=== PATIENT | female | born 1975 | race Caucasian/White ===

== ENCOUNTER → 2017-11-26 | Outpatient (CLI) | payer MEDICAID, SELFPAY | PROVIDERS: Visit Provider Emergency Medicine | DX: Z12.31 Encounter for screening mammogram for malignant neoplasm of breast (principal) | CPT/HCPCS: 77067; G0202 ==

== ENCOUNTER → 2018-03-17 10:12 | Outpatient (REF) | payer MEDICAID, SELFPAY ==
[2018-03-17 15:21] LABS: Alanine Aminotransferase 21 U/L (12-78); Albumin Level 3.5 gm/dL (3.4-5.0); Albumin/Globulin Ratio 0.9 (1.1-1.8); Alkaline Phosphatase 118 U/L (46-116); Anion Gap 13.4 mEq/L (5-15); Aspartate Amino Transferase 18 U/L (15-37); Bilirubin,Total 0.5 mg/dL (0.2-1.0); Blood Urea Nitrogen 7 mg/dL (7-18); Calcium 9.3 mg/dL (8.5-10.1); Carbon Dioxide 26 mmol/L (21.0-32.0); Chloride 103 mmol/L (98-107); Creatinine,Serum 0.65 mg/dL (0.55-1.02); Estimated Glomerular Filt Rate 99 ml/min (>60); Free T4 (Free Thyroxine) 0.93 ng/dl (0.76-1.46); GFR (African American) 120 ML/MIN (>60); Globulin 3.7 gm/dl (1.3-3.2); Glucose 91 mg/dL (74-106); Potassium 4.4 mmoL/L (3.5-5.1); Sodium 138 mmol/L (136-145); Thyroid Stimulating Hormone 1.64 uIU/ml (0.358-3.740); Total Protein,Serum 7.2 gm/dL (6.4-8.2)
== END ==
LOC: LAB 10:12
PROVIDERS: Visit Provider Emergency Medicine
DX: I10 Essential (primary) hypertension (principal)
CPT/HCPCS: 80053; 84439; 84443; 87522

== ENCOUNTER → 2018-03-19 13:07 | Outpatient (REF) | payer MEDICAID, SELFPAY ==
[2018-03-19 16:32] LABS: Amphetamine/Metha Screen,Urine Negative ng/mL (<1000); Barbiturates Screen,Urine Negative ng/mL (<200); Benzodiazepines Screen,Urine Negative ng/mL (200); Cannabinoid Screen,Urine Negative ng/mL (<50); Cocaine Screen,Urine Negative ng/g (<300); Methadone Screen,Urine Negative ng/mL (<300); Opiate Screen,Urine Negative ng/mL (<300); Phencyclidine Screen,Urine Negative ng/mL (<25)
== END ==
LOC: LAB 13:07
PROVIDERS: Visit Provider Emergency Medicine
DX: Z79.899 Other long term (current) drug therapy (principal)
CPT/HCPCS: 80305

== ENCOUNTER → 2018-10-21 11:47 | Outpatient (CLI) | payer MEDICAID, SELFPAY ==
--- NOTE | 2018-10-21 11:51 | XR_ITS ---
XR chest 2V HISTORY: ITS.REASON: cough ORDERING PHYSICIAN: Carly Brown PATIENT AGE: 43 years COMPARISON: None FINDINGS: The cardiomediastinal silhouette and pulmonary vascularity are within normal limits. There is some haziness in the perihilar region on both sides with some mild bronchial thickening which may be related to bronchitis.. No lobar consolidation or collapse No acute bony abnormalities. IMPRESSION: Bronchitis
== END ==
PROVIDERS: PCP Emergency Medicine; Visit Provider Nurse Practitioner Family
DX: R05 Cough (principal); F17.200 Nicotine dependence, unspecified, uncomplicated; R06.02 Shortness of breath
CPT/HCPCS: 71046

== ENCOUNTER → 2020-04-19 07:45 | Outpatient (CLI) | payer OTHER, SELFPAY ==
--- NOTE | 2020-04-19 07:45 | MM_ITS ---
PROCEDURE: MM DIG SCREENING MAMM BI W/CAD Digital Breast Tomosynthesis Included CLINICAL INDICATION: screening There is a history of breast cancer patient's maternal grandmother. There has been a previous biopsy on each breast for benign disease. 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 R2 CAD reviewed. FINDINGS: There are moderate diffuse heterogenic fibroglandular densities seen throughout both breasts. The findings are bilateral and symmetrical. Tomograms are most helpful this type of breast parenchyma. There is no suspicious lesion and no suspicious microcalcifications. IMPRESSION: Moderate diffuse breast density with no suspicious lesions seen BI-RAD Category: 1 Negative FOLLOW-UP: 1YR 1 Year Follow-up (A letter has been sent to the patient regarding results of the study.) Dictated by: Dr. Neal Velazquez MD 04/19/2020 14:[address] Neal Velazquez MD in [place] 04/19/2020 14:11
== END ==
PROVIDERS: PCP Emergency Medicine; Visit Provider Emergency Medicine
DX: Z12.31 Encounter for screening mammogram for malignant neoplasm of breast (principal)
CPT/HCPCS: 77063; 77067

== ENCOUNTER → 2020-10-26 13:58 | Outpatient (CLI) | payer OTHER, SELFPAY ==
--- NOTE | 2020-10-26 14:16 | US_ITS ---
PROCEDURE: US GALLBLADDER CLINICAL INDICATION: ruq pain Right upper quadrant pain COMPARISON: No exams were available for comparison FINDINGS: Pancreas: Unremarkable/Not well seen Liver: Unremarkable. There is appropriate direction of blood flow within a non dilated portal vein. Right kidney: Unremarkable appearing. No hydronephrosis. Gallbladder: No stones are evident. There is no gallbladder wall thickening. Common duct is normal in diameter. IMPRESSION: Negative gallbladder ultrasound. No stones evident. Dictated by: Brandyn Kelly MD 10/26/2020 15:36 Brandyn Kelly MD in [place] 10/26/2020 15:36
[2020-10-26 15:06] LABS: Basophils # 0.1 K/mm3 (0-0.2); Basophils % 0.6 % (0.1-2.0); Eosinophils # 0.2 K/mm3 (0.0-0.4); Eosinophils % 2.2 % (0.1-12.0); Hematocrit 42.5 % (37.0-47.0); Hemoglobin 14.9 g/dL (12.2-16.2); Lymphocytes # 5.2 K/mm3 (0.7-4.5); Lymphocytes % 50.2 % (10-50); Mean Corpuscular HGB Conc 35.1 g/dL (31.8-35.4); Mean Corpuscular Hemoglobin 30.8 pg (27.0-31.2); Mean Corpuscular Volume 87.7 fl (81-99); Monocytes # 0.6 K/mm3 (0.1-1.0); Monocytes % 5.4 % (1.7-9.3); Neutrophils # 4.3 K/mm3 (1.8-7.8); Neutrophils % 41.7 % (37.0-80.0); Platelet Count 287 K/mm3 (142-424); Red Blood Count 4.84 M/mm3 (4.20-5.40); Red Cell Distribution Width 13.8 % (11.5-17.5); White Blood Count 10.3 K/mm3 (4.8-10.8)
[2020-10-26 15:09] LABS: MANUAL DIFFERENTIAL MANUAL DIFFERENTIAL (MANUAL DIFF)
[2020-10-26 16:26] LABS: Eosinophils % 2 % (0-3); Lymphocytes % 55 % (10-50); Monocytes % 1 % (2-9); Neutrophils % 42 % (42-76); Platelet Estimate Normal; RBC Morphology Normal; Total Cells Counted 100
[2020-10-26 18:00] LABS: Alanine Aminotransferase 19 U/L (12-78); Albumin Level 4.5 g/dl (3.5-5.0); Albumin/Globulin Ratio 1.5 (1.1-1.8); Alkaline Phosphatase 79 U/L (38-126); Amylase 41 U/L (30-110); Anion Gap 10.6 mEq/L (5-15); Aspartate Amino Transferase 29 U/L (14-36); Bilirubin,Total 0.6 mg/dl (0.2-1.3); Blood Urea Nitrogen 11 mg/dl (7-17); Calcium 9.8 mg/dl (8.4-10.2); Carbon Dioxide 29 mmol/L (22.0-30.0); Chloride 102 mmol/L (98-107); Estimated Glomerular Filt Rate 77 ml/min (>60); GFR (African American) 93 ML/MIN (>60); Glucose 88 mg/dl (74-100); Lipase 149 U/L (23-300); Potassium 3.6 mmoL/L (3.5-5.1); Sodium 138 mmol/L (136-145); Total Protein,Serum 7.5 g/dl (6.3-8.2)
[2020-10-26 18:14] LABS: 25-OH Vitamin D, Total 45.1 ng/mL (30-100)
== END ==
PROVIDERS: Visit Provider Emergency Medicine
DX: R10.9 Unspecified abdominal pain (principal); E03.9 Hypothyroidism, unspecified
CPT/HCPCS: 36415; 76705; 80053; 82150; 82306; 83690; 85007; 85025

== ENCOUNTER → 2020-11-04 09:02 | Outpatient (CLI) | payer OTHER, SELFPAY ==
--- NOTE | 2020-11-04 09:02 | NM_ITS ---
PROCEDURE: NM HEPATOBILIARY W PHARM CLINICAL INDICATION: abd pain Right upper quadrant pain COMPARISON: US US GALLBLADDER from 10/26/2020 TECHNIQUE: DOSE: 8.76 mCi technetium Choletec 1.5 mcg of CCK FINDINGS: Homogeneous activity is present within the hepatic parenchyma. Activity is present in the gallbladder by 10 minutes. Activity is present in the small bowel by 5 minutes. The gallbladder ejection fraction is calculated to be 89 percent. Patient complains of slight pain with CCK infusion IMPRESSION: No evidence of common or cystic duct obstruction with normal gallbladder ejection fraction Dictated by: Brandyn Kelly MD 11/04/2020 17:14 Brandyn Kelly MD in [place] 11/04/2020 17:14
== END ==
PROVIDERS: PCP Emergency Medicine; Visit Provider Emergency Medicine
DX: R10.9 Unspecified abdominal pain (principal)
CPT/HCPCS: 78227; A9537; J2805

== ENCOUNTER → 2020-12-22 14:30 | Outpatient (CLI) | payer OTHER, SELFPAY ==
[2020-12-23 11:15] LABS: Covid-19 Nasal PCR Sendout P&C Negative
== END ==
PROVIDERS: PCP Emergency Medicine; Visit Provider Emergency Medicine
DX: Z20.822 Contact with and (suspected) exposure to COVID-19 (principal)
CPT/HCPCS: U0004

== ENCOUNTER → 2021-01-13 15:34 | Outpatient (CLI) | payer OTHER, SELFPAY ==
[2021-01-13 17:33] LABS: Coronavirus 19 IgG Antibody Negative (Negative); Coronavirus 19 IgM Antibody Negative (Negative)
== END ==
PROVIDERS: Visit Provider Internal Medicine Gastroenterology
DX: Z01.812 Encounter for preprocedural laboratory examination (principal); Z20.822 Contact with and (suspected) exposure to COVID-19; Z12.11 Encounter for screening for malignant neoplasm of colon
CPT/HCPCS: 36415; 86328

== ENCOUNTER → 2021-05-08 13:30 | Outpatient (CLI) | payer OTHER, SELFPAY ==
[2021-05-08 18:44] LABS: Barbiturates Screen,Urine Negative ng/ml (<200); Benzodiazepines Screen,Urine Negative ng/ml (<200)
[2021-05-08 18:45] LABS: Amphetamine/Metha Screen,Urine Negative ng/ml (<1000)
[2021-05-08 18:46] LABS: Cannabinoid Screen,Urine Positive ng/ml (<50); Methadone Screen,Urine Negative ng/ml (<300)
[2021-05-08 18:47] LABS: Cocaine Screen,Urine Negative ng/ml (<300)
[2021-05-08 18:50] LABS: Opiate Screen,Urine Negative ng/ml (<300)
[2021-05-08 18:51] LABS: Phencyclidine Screen,Urine Negative ng/ml (<25)
== END ==
PROVIDERS: Visit Provider Emergency Medicine
DX: G62.9 Polyneuropathy, unspecified (principal)
CPT/HCPCS: 80305

== ENCOUNTER 2021-07-19 08:04 | Emergency (ER) | payer OTHER, SELFPAY ==
[2021-07-19 08:05] VITALS: BP 165/81; PULSE 73; RESP 17; TEMP 36.8; O2SAT 99; BMI 27.4
[2021-07-19 08:13] VITALS: BMI 26.5
--- NOTE | 2021-07-19 08:14 | XR_ITS ---
PROCEDURE: XR CHEST PORTABLE CLINICAL HISTORY: fever COMPARISON: CR CXR2V XR chest 2V from 10/21/2018 FINDINGS: The cardiomediastinal silhouette and pulmonary vascularity are within normal limits. The lungs are clear without infiltrates, suspicious nodules, or pleural effusions. Small triangular-shaped opacity is present in the right mid upper lung zone and may be due to summation artifact from ribs and scapula. Follow-up may confirm. No acute bony findings. IMPRESSION: No acute findings. Dictated by: Brandyn Kelly MD 07/19/2021 09:26 Brandyn Kelly MD in [place] 07/19/2021 09:26
--- NOTE | 2021-07-19 08:29 | INFXCTL.NOTE ---
rad notified of xray order
[2021-07-19 08:30] VITALS: BP 153/82; PULSE 68; O2SAT 95
[2021-07-19 08:43] LABS: Basophils # 0.1 K/mm3 (0-0.2); Basophils % 0.6 % (0.1-2.0); Eosinophils # 0.3 K/mm3 (0.0-0.4); Eosinophils % 2.7 % (0.1-12.0); Hematocrit 40.9 % (37.0-47.0); Hemoglobin 14.1 g/dL (12.2-16.2); Lymphocytes # 2.8 K/mm3 (0.7-4.5); Lymphocytes % 26.2 % (10-50); Mean Corpuscular HGB Conc 34.5 g/dL (31.8-35.4); Mean Corpuscular Volume 87.1 fl (81-99); Mean Platelet Volume 7.7 fl (7.4-10.4); Monocytes # 0.7 K/mm3 (0.1-1.0); Monocytes % 6.5 % (1.7-9.3); Neutrophils # 6.7 K/mm3 (1.8-7.8); Neutrophils % 63.9 % (37.0-80.0); Platelet Count 273 K/mm3 (142-424); Red Blood Count 4.69 M/mm3 (4.20-5.40); Red Cell Distribution Width 13.3 % (11.5-17.5); White Blood Count 10.5 K/mm3 (4.8-10.8)
[2021-07-19 08:47] LABS: Chloride 106 mmol/L (98-107)
[2021-07-19 08:48] LABS: Potassium 3.5 mmoL/L (3.5-5.1); Sodium 139 mmol/L (136-145)
[2021-07-19 08:50] LABS: Alanine Aminotransferase 16 U/L (12-78); Alkaline Phosphatase 93 U/L (38-126); Aspartate Amino Transferase 26 U/L (14-36); Blood Urea Nitrogen 10 mg/dl (7-17); Creatinine Clearance Estimated 93 mL/min (50-200); Estimated Glomerular Filt Rate 77 ml/min (>60); GFR (African American) 93 ML/MIN (>60)
[2021-07-19 08:51] LABS: Albumin Level 4.5 g/dl (3.5-5.0); Albumin/Globulin Ratio 1.5 (1.1-1.8); Anion Gap 8.5 mEq/L (5-15); Calcium 9.6 mg/dl (8.4-10.2); Carbon Dioxide 28 mmol/L (22.0-30.0); Glucose 122 mg/dl (74-100); Lipase 60 U/L (23-300); Total Protein,Serum 7.5 g/dl (6.3-8.2)
[2021-07-19 09:00] VITALS: BP 145/71; PULSE 65; O2SAT 96
[2021-07-19 09:10] LABS: Coronavirus 19, PCR Not Detected (NotDetected); Influenza A, PCR Not Detected (NotDetected); Influenza B, PCR Not Detected (NotDetected)
--- NOTE | 2021-07-19 09:19 | HMH.EDGENADL ---
ED Disposition Clinical Impression: Diarrhea Disposition: Home, Self-Care Condition on Discharge: Good Instructions: DI for Diarrhea and Traveler's Diarrhea -- Adult, DI for Diarrhea and Traveler's Diarrhea -- Child, DI for Nausea -- Adult, DI for Nausea -- Child Prescriptions: Loperamide HCl [Imodium 2 mg capsule] 2 mg PO Q2HP PRN 2 Days #30 cap PRN Reason: Diarrhea Transmission Status: Pending to [facility] Ondansetron [Zofran 4mg ODT] 4 mg PO TIDP PRN #15 tab PRN Reason: Nausea Transmission Status: Pending to [facility] Referrals: See Henriquez MD [Primary Care Provider] - - Critical Care Critical Care Time: No Attestation: On 07/19/21, the high probability of a clinically significant, sudden or life threatening deterioration of the following system(s) required my full and direct attention, intervention and personal management. The time I documented below is in addition to time spent performing reported procedures but includes the following listed in this critical care notation. Medical Decision Making - Medical Records Medical records reviewed: Yes: I reviewed the patient's medical records. - Bassam Inquiry Pt receiving controlled substance: No Vital Signs: 07/19/21 08:05 Temperature 98.3 F Temperature Source Oral Pulse Rate [Right] 73 Respiratory Rate 17 Blood Pressure [Right Arm] 165/81 H Blood Pressure Mean [Right Arm] 109 02 Sat by Pulse Oximetry 99 Oxygen Delivery Method Room Air - Lab Data Lab Results 07/19/21 08:25: WBC 10.5, RBC 4.69, Hgb 14.1, Hct 40.9, MCV 87.1, MCH 30.0, MCHC 34.5, RDW 13.3, Plt Count 273, MPV 7.7, Neut % (Auto) 63.9, Lymph % (Auto) 26.2, [place] % (Auto) 6.5, Eos % (Auto) 2.7, Baso % (Auto) 0.6, Neut # (Auto) 6.7, Lymph # (Auto) 2.8, [place] # (Auto) 0.7, Eos # (Auto) 0.3, Baso # (Auto) 0.1 07/19/21 08:25: Sodium 139, Potassium 3.5, Chloride 106, Carbon Dioxide 28, Anion Gap 8.5, BUN 10, Creatinine 0.80, Estimated Creat Clear 93, Estimated GFR 77, Est GFR ( Amer) 93, Glucose 122 H, Calcium 9.6, Total Bilirubin 1.0, AST 26, ALT 16, Alkaline Phosphatase 93, Total Protein 7.5, Albumin 4.5, Globulin 3.0, Albumin/Globulin Ratio 1.5 07/19/21 08:25: SARS-CoV-2 (PCR) Not detected, Influenza A Untype (PCR) Not detected, Influenza Type B (PCR) Not detected 07/19/21 08:25: Lipase 60 Result diagrams: 07/19/21 08:25 07/19/21 08:25 Orders (Tests/Meds): ED MEDICATIONS Discontinued Medications Generic Name Dose Route Start Last Admin Trade Name Freq PRN Reason Stop Dose Admin Sodium Chloride 1,000 mls @ 999 mls/hr 07/19/21 08:30 07/19/21 08:35 Sod Chlor 0.9% 1000ml Bag IV 07/19/21 09:30 999 mls/hr .Q1H1M JENNIFER Administration Ondansetron HCl 4 mg 07/19/21 08:27 07/19/21 09:38 Ondansetron 4mg Odt SL 07/19/21 08:28 Not Given ONCE ONE Ondansetron HCl 4 mg 07/19/21 08:35 07/19/21 08:35 Ondansetron 4mg/2ml Vial IV 07/19/21 08:36 4 mg ONCE ONE Administration Medical Decision Narrative: 46-year-old female presents with nausea vomiting and diarrhea as above. She is in no acute distress nontoxic-appearing comfortable in the room. She did not have acute abdomen on my exam. She was concerned for COVID-19 however her rapid test was negative. Counseled to obtain PCR as well and isolate per quarantine guidelines. She was symptomatically feeling much better on reexamination requesting to be discharged. Plan to give antiemetic and antidiarrheal medicine and discharged home with return precautions General Adult HPI - General Chief complaint: Nausea/Vomiting/Diarrhea Stated complaint: vomiting, fever Time Seen by Provider: 07/19/21 08:10 Mode of Arrival: Family Vehicle Limitations: No Limitations Description of Symptoms (Recalled from ER Triage Doc. by RN): Patient c/o nausea, vomitting, diarhea and a headache for the last two days. Patient reports she has had multiple COVID exposures. Patient reports being vacc
[2021-07-19 09:30] VITALS: BP 157/75; PULSE 56; O2SAT 96
[2021-07-19 09:58] VITALS: BP 148/88; PULSE 60; O2SAT 98
[2021-07-19 10:02] VITALS: BP 148/88; PULSE 63; RESP 18; TEMP 37.1; O2SAT 98
== END 2021-07-19 10:03 | disposition home or self-care (01) ==
PROVIDERS: Emergency Provider Emergency Medicine; PCP Emergency Medicine
DX: Z20.822 Contact with and (suspected) exposure to COVID-19 (principal); R11.2 Nausea with vomiting, unspecified; R19.7 Diarrhea, unspecified; F41.8 Other specified anxiety disorders; I10 Essential (primary) hypertension; E03.9 Hypothyroidism, unspecified; F17.210 Nicotine dependence, cigarettes, uncomplicated
CPT/HCPCS: 71045; 80053; 83690; 85025; 96365; 96375; 99283; J2405; U0003

== ENCOUNTER 2021-09-01 10:52 | Emergency (ER) | payer OTHER, SELFPAY ==
[2021-09-01] VITALS (9 sets, daily range): BP systolic 144–178; BP diastolic 85–96; PULSE 72–101; RESP 16–18; TEMP 37.2; O2SAT 96–99; BMI 26.5
--- NOTE | 2021-09-01 11:17 | XR_ITS ---
PROCEDURE: XR CHEST PORTABLE CLINICAL HISTORY: fever, SOA, cough COMPARISON: CR CXR2V XR chest 2V from 10/21/2018 CR XR CHEST PORTABLE from 07/19/2021 FINDINGS: The cardiomediastinal silhouette and pulmonary vascularity are within normal limits. Calcified granulomas right upper lobe No acute bony abnormalities. IMPRESSION: No change with no acute finding Dictated by: Brandyn Kelly MD 09/01/2021 12:25 Brandyn Kelly MD in [place] 09/01/2021 12:25
[2021-09-01 11:21] LABS: Coronavirus 19, PCR Not Detected (NotDetected); Influenza A, PCR Not Detected (NotDetected); Influenza B, PCR Not Detected (NotDetected)
[2021-09-01 11:21] LABS: Microscopic, Urine URINE MICROSCOPIC (MICROSCOPIC)
[2021-09-01 11:23] LABS: Basophils # 0.1 K/mm3 (0-0.2); Basophils % 0.9 % (0.1-2.0); Eosinophils # 0.1 K/mm3 (0.0-0.4); Eosinophils % 1.2 % (0.1-12.0); Hematocrit 46.1 % (37.0-47.0); Hemoglobin 15.7 g/dL (12.2-16.2); Lymphocytes % 34.7 % (10-50); Mean Corpuscular Hemoglobin 30.8 pg (27.0-31.2); Mean Corpuscular Volume 90.6 fl (81-99); Mean Platelet Volume 8.3 fl (7.4-10.4); Monocytes # 0.6 K/mm3 (0.1-1.0); Monocytes % 6.7 % (1.7-9.3); Neutrophils # 4.9 K/mm3 (1.8-7.8); Neutrophils % 56.4 % (37.0-80.0); Platelet Count 316 K/mm3 (142-424); Red Blood Count 5.09 M/mm3 (4.20-5.40); Red Cell Distribution Width 13.4 % (11.5-17.5); White Blood Count 8.7 K/mm3 (4.8-10.8)
[2021-09-01 11:25] LABS: Appearance,Urine CLEAR (Clear); Blood, Urine 1+ (Negative); Color,Urine YELLOW (Yellow); Glucose,Urine (UA) Negative (Negative); Ketones,Urine TRACE (Negative); Leukocyte Esterase,Urine Negative (Negative); Nitrate,Urine Negative (Negative); Protein,Urine TRACE (Negative); Urobilinogen,Urine 0.2 EU/dl (0.2)
[2021-09-01 11:27] LABS: Bilirubin,Urine 1+ (Negative)
[2021-09-01 11:27] LABS: Chloride 106 mmol/L (98-107); Potassium 4.1 mmoL/L (3.5-5.1); Sodium 138 mmol/L (136-145)
[2021-09-01 11:29] LABS: Alanine Aminotransferase 19 U/L (12-78); Aspartate Amino Transferase 36 U/L (14-36); Blood Urea Nitrogen 9 mg/dl (7-17); Creatinine Clearance Estimated 107 mL/min (50-200); Estimated Glomerular Filt Rate 90 ml/min (>60); GFR (African American) 109 ML/MIN (>60)
[2021-09-01 11:30] LABS: Albumin Level 4.3 g/dl (3.5-5.0); Albumin/Globulin Ratio 1.2 (1.1-1.8); Alkaline Phosphatase 102 U/L (38-126); Anion Gap 12.1 mEq/L (5-15); Bilirubin,Total 0.9 mg/dl (0.2-1.3); Calcium 9.5 mg/dl (8.4-10.2); Carbon Dioxide 24 mmol/L (22.0-30.0); Globulin 3.5 g/dL (1.3-3.2); Glucose 112 mg/dl (74-100); Total Protein,Serum 7.8 g/dl (6.3-8.2)
--- NOTE | 2021-09-01 11:45 | HMH.EDNVD ---
ED Disposition Clinical Impression: Bronchitis Disposition: Home, Self-Care Condition on Discharge: Good Instructions: DI for Cough -- Adult Additional Instructions: fluids and use meds and see pcp for follow up Prescriptions: levoFLOXacin [Levaquin 500mg tab] 500 mg PO DAILY #7 tab Transmission Status: Pending to [facility] predniSONE [Prednisone 20mg Tab] 20 mg PO BID #10 tab Transmission Status: Pending to [facility] Benzonatate [Tessalon Perle 100mg Cap] 100 mg PO TID #30 cap Transmission Status: Pending to [facility] Referrals: See Henriquez MD [Primary Care Provider] - - Critical Care Critical Care Time: No Attestation: On 09/01/21, the high probability of a clinically significant, sudden or life threatening deterioration of the following system(s) required my full and direct attention, intervention and personal management. The time I documented below is in addition to time spent performing reported procedures but includes the following listed in this critical care notation. Medical Decision Making - Medical Records Medical records reviewed: Yes: I reviewed the patient's medical records. - Bassam Inquiry Pt receiving controlled substance: No Vital Signs: 09/01/21 10:53 09/01/21 11:06 09/01/21 11:30 Temperature 98.9 F Temperature Source Oral Pulse Rate 101 H 88 Pulse Rate [Right Radial] 88 Respiratory Rate 18 16 18 Blood Pressure 178/94 H 158/96 H Blood Pressure [Right Arm] 178/94 H Blood Pressure Mean 116 Blood Pressure Mean [Right Arm] 122 Blood Pressure Source [Right Arm] Automatic Cuff Blood Pressure Position [Right Arm] Supine 02 Sat by Pulse Oximetry 99 99 98 Oxygen Delivery Method Room Air Room Air 09/01/21 12:00 09/01/21 12:30 Temperature Temperature Source Pulse Rate 77 72 Pulse Rate [Right Radial] Respiratory Rate 16 16 Blood Pressure 144/91 H 157/85 H Blood Pressure [Right Arm] Blood Pressure Mean 115 Blood Pressure Mean [Right Arm] Blood Pressure Source [Right Arm] Blood Pressure Position [Right Arm] 02 Sat by Pulse Oximetry 96 96 Oxygen Delivery Method - Lab Data Lab Results 09/01/21 11:05: Urine Color Yellow, Urine Appearance Clear, Urine pH 7.0, Ur Specific [place] 1.020, Urine Protein Trace, Urine Glucose (UA) Negative, Urine Ketones Trace, Urine Blood 1+, Urine Nitrate Negative, Urine Bilirubin 1+ A, Urine Urobilinogen 0.2, Ur Leukocyte Esterase Negative, Urine RBC 3-5, Urine WBC 3-5, Ur Squamous Epith Cells 5-10, Urine Bacteria None 09/01/21 11:15: WBC 8.7, RBC 5.09, Hgb 15.7, Hct 46.1, MCV 90.6, MCH 30.8, MCHC 34.0, RDW 13.4, Plt Count 316, MPV 8.3, Neut % (Auto) 56.4, Lymph % (Auto) 34.7, [place] % (Auto) 6.7, Eos % (Auto) 1.2, Baso % (Auto) 0.9, Neut # (Auto) 4.9, Lymph # (Auto) 3.0, [place] # (Auto) 0.6, Eos # (Auto) 0.1, Baso # (Auto) 0.1 09/01/21 11:15: Sodium 138, Potassium 4.1, Chloride 106, Carbon Dioxide 24, Anion Gap 12.1, BUN 9, Creatinine 0.70, Estimated Creat Clear 107, Estimated GFR 90, Est GFR ( Amer) 109, Glucose 112 H, Calcium 9.5, Total Bilirubin 0.9, AST 36, ALT 19, Alkaline Phosphatase 102, Total Protein 7.8, Albumin 4.3, Globulin 3.5 H, Albumin/Globulin Ratio 1.2 09/01/21 11:15: SARS-CoV-2 (PCR) Not detected, Influenza A Untype (PCR) Not detected, Influenza Type B (PCR) Not detected Result diagrams: 09/01/21 11:15 09/01/21 11:15 Orders (Tests/Meds): ED MEDICATIONS Generic Name Dose Route Start Last Admin Trade Name Freq PRN Reason Stop Dose Admin Sodium Chloride 1,000 mls @ 999 mls/hr 09/01/21 13:43 09/01/21 13:44 Sod Chlor 0.9% 1000ml Bag IV 09/01/21 14:43 999 mls/hr .Q1H1M ONE Administration Discontinued Medications Generic Name Dose Route Start Last Admin Trade Name Freq PRN Reason Stop Dose Admin Sodium Chloride 1,000 mls @ 999 mls/hr 09/01/21 11:30 09/01/21 11:25 Sod Chlor 0.9% 1000ml Bag IV 09/01/21 12:30 999 mls/hr .Q1H
== END 2021-09-01 14:26 | disposition home or self-care (01) ==
PROVIDERS: Emergency Provider Emergency Medicine; PCP Emergency Medicine
DX: J40 Bronchitis, not specified as acute or chronic (principal)
CPT/HCPCS: 71045; 80053; 81001; 85025; 96365; 96366; 96375; 99283; C9803; J2405; U0003; U0005

== ENCOUNTER → 2021-10-31 15:12 | Outpatient (CLI) | payer OTHER, SELFPAY ==
--- NOTE | 2021-10-31 15:13 | XR_ITS ---
PROCEDURE: XR SHOULDER RT MIN 2V CLINICAL INDICATION: right shoulder pain COMPARISON: No exams were available for comparison FINDINGS: No fracture or dislocation. No lytic or blastic change. There is normal mineralization. Mild osteoarthritic changes at the acromioclavicular joint with bony hypertrophy. No significant subacromial stenosis. The glenohumeral joint has an unremarkable. IMPRESSION: Mild acromioclavicular arthropathy Dictated by: Brandyn Kelly MD 10/31/2021 18:56 Brandyn Kelly MD in [place] 10/31/2021 18:56
--- NOTE | 2021-10-31 15:13 | MM_ITS ---
PROCEDURE INFORMATION: Exam: MG Bilateral Screening 3D Mammography Exam date and time: 10/31/2021 3:13 PM Age: 46 years old Clinical indication: Screening mammogram TECHNIQUE: Imaging protocol: Bilateral screening tomosynthesis and 2D mammography including computer-aided detection (CAD) when performed. COMPARISON: 1. MG MM DIG SCREENING MAMM BI W/CAD 04/19/2020 8:07 AM 2. MG DMSB DIG MAMM-SCREEN LEONARD W/CAD 11/26/2017 4:05 PM 3. MG DMSB DIG MAMM-SCREEN LEONARD 01/05/2016 8:56 AM 4. 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 Mass: None. Architectural distortion: No new or suspicious architectural distortion. Calcifications: No new or suspicious calcifications are present Asymmetric density: No new or suspicious asymmetric density is present Skin thickening: None. Axillary adenopathy: None. IMPRESSION: No mammographic evidence of malignancy. Recommend annual screening mammography unless otherwise clinically indicated. ASSESSMENT: BI-RADS category 1: Negative
== END ==
PROVIDERS: PCP Emergency Medicine; Visit Provider Emergency Medicine
DX: Z12.31 Encounter for screening mammogram for malignant neoplasm of breast (principal)
CPT/HCPCS: 73030; 77063; 77067

== ENCOUNTER → 2021-11-12 12:50 | Outpatient (CLI) | payer OTHER, SELFPAY | PROVIDERS: PCP Emergency Medicine; Visit Provider Nurse Practitioner | DX: Z20.822 Contact with and (suspected) exposure to COVID-19 (principal) | CPT/HCPCS: C9803; U0003; U0005 ==

== ENCOUNTER 2021-12-15 10:09 | Emergency (ER) | payer OTHER, SELFPAY ==
[2021-12-15 10:14] VITALS: BP 136/84; PULSE 75; RESP 18; TEMP 36.9; O2SAT 98; BMI 31.8
[2021-12-15 10:18] VITALS: BP 136/82; PULSE 77; RESP 16; O2SAT 99
--- NOTE | 2021-12-15 10:25 | XR_ITS ---
FINAL REPORT CLINICAL HISTORY: posterior L lung pain, cough, soa COMPARISON: 09/01/2021 FINDINGS: SINGLE VIEW CHEST The heart is normal in size. The mediastinum is unremarkable. The lungs are clear. There is no pneumothorax. IMPRESSION: No acute cardiopulmonary process. Reviewed, Interpreted and Dictated by Mauro Resendez III, MD Transcribed by Charlotte Sheikh Authenticated by Mauro Resendez III, MD on 12/15/2021 11:59:34 AM [facility]
--- NOTE | 2021-12-15 10:26 | PC.NURSE ---
notified rad of xray order
--- NOTE | 2021-12-15 10:31 | PC.NURSE ---
rad at for portable cxr
[2021-12-15 10:35] LABS: Coronavirus 19, PCR Not Detected (NotDetected); Influenza A, PCR Not Detected (NotDetected); Influenza B, PCR Not Detected (NotDetected)
--- NOTE | 2021-12-15 10:45 | HMH.EDGENADL ---
ED Disposition Clinical Impression: Viral upper respiratory infection, Chest wall pain Disposition: Home, Self-Care Condition on Discharge: Good Instructions: DI for Viral Upper Respiratory Infection -- Adult Additional Instructions: Rest. Drink plenty of fluids. Take Tylenol or ibuprofen for pain or fever. Off work until no fever for 24 hours and symptoms are improving. Referrals: See Henriquez MD [Primary Care Provider] - Forms: Work/School Release - Critical Care Critical Care Time: No Attestation: On 12/15/21, the high probability of a clinically significant, sudden or life threatening deterioration of the following system(s) required my full and direct attention, intervention and personal management. The time I documented below is in addition to time spent performing reported procedures but includes the following listed in this critical care notation. Medical Decision Making - Bassam Inquiry Pt receiving controlled substance: No Vital Signs: 12/15/21 10:14 12/15/21 10:18 Temperature 98.4 F Temperature Source Oral Pulse Rate 77 Pulse Rate [Right Radial] 75 Respiratory Rate 18 16 Blood Pressure 136/82 Blood Pressure [Right Arm] 136/84 Blood Pressure Mean 104 Blood Pressure Mean [Right Arm] 101 Blood Pressure Source [Right Arm] Automatic Cuff Blood Pressure Position [Right Arm] Sitting 02 Sat by Pulse Oximetry 98 99 Oxygen Delivery Method Room Air - Lab Data Lab Results 12/15/21 10:27: SARS-CoV-2 (PCR) Not detected, Influenza A Untype (PCR) Not detected, Influenza Type B (PCR) Not detected 12/15/21 11:34: WBC 7.6, RBC 4.09 L, Hgb 12.8, Hct 37.9, MCV 92.6, MCH 31.2, MCHC 33.8, RDW 13.9, Plt Count 277, MPV 8.9, Neut % (Auto) 41.3, Lymph % (Auto) 48.6, Gray % (Auto) 5.9, Eos % (Auto) 2.6, Baso % (Auto) 1.6, Neut # (Auto) 3.1, Lymph # (Auto) 3.7, Gray # (Auto) 0.5, Eos # (Auto) 0.2, Baso # (Auto) 0.1 12/15/21 11:34: D-Dimer 0.45 12/15/21 11:34: Sodium 136, Potassium 3.9, Chloride 103, Carbon Dioxide 32 H, Anion Gap 4.9 L, BUN 11, Creatinine 0.80, Estimated Creat Clear 112, Estimated GFR 77, Est GFR ( Amer) 93, Glucose 119 H, Calcium 9.3, Total Bilirubin 0.6, AST 31, ALT 18, Alkaline Phosphatase 62, Troponin I < 0.01, Total Protein 6.4, Albumin 3.9, Globulin 2.5, Albumin/Globulin Ratio 1.6 Result diagrams: 12/15/21 11:34 12/15/21 11:34 - Radiology Data #1 Image(s): Chest Image Reviewed: Yes I reviewed the patient's radiology image Preliminary Findings: Normal/NAD Patient: Rosa M Vences#: [id number] : 1975 Acct:[id number] Age/Sex: 46 / F ADM Date: 12/15/21 Loc: ER Attending Dr: Ordering Physician: Otoniel Hernandez MD Date of Service: 12/15/21 Procedure(s): XR chest portable Accession Number(s): [id number] cc: See Henriquez MD; Mauro Resendez MD~ FINAL REPORT CLINICAL HISTORY: posterior L lung pain, cough, soa COMPARISON: 09/01/2021 FINDINGS: SINGLE VIEW CHEST The heart is normal in size. The mediastinum is unremarkable. The lungs are clear. There is no pneumothorax. IMPRESSION: No acute cardiopulmonary process. Reviewed, Interpreted and Dictated by Mauro Resendez III, MD Transcribed by Charlotte Sheikh Authenticated by Mauro Resendez III, MD on 12/15/2021 11:59:[address] [facility] - ECG Data Tracing #1 EKG interpreted by Otoniel Hernandez MD: Rhythm: sinus Rate: 60 [place]: normal Ectopy: none Conduction: normal ST Segment Changes: none T Wave Changes: none Q Waves: none No evidence of acute ischemia or injury Normal electrocardiogram General Adult HPI - General Chief complaint: Nausea/Vomiting/Diarrhea Stated complaint: covid exposed, diarrhea,cough, congestion Time Seen by Provider: 12/15/21 11:18 Mode of Arrival: Ambulatory Limitations: No Limitations Description of Symptoms (Recalled from ER Triage Doc. by RN): Pt reports has been having diarrhea since saturday of
--- NOTE | 2021-12-15 11:37 | ECG_ITS ---
APPROVED REPORT Exam: Resting ECG HR:60 bpm ECG Measurements Heart Rate 60 AXES OR 150 P 32 QRSd 82 QRS 47 QT 442 T 30 QTc 442 Conclusion Normal sinus rhythm Normal ECG Electronically signed by : Tad Waller MD 12/15/2021 17:32:06
[2021-12-15 11:47] LABS: Basophils # 0.1 K/mm3 (0-0.2); Basophils % 1.6 % (0.1-2.0); Eosinophils # 0.2 K/mm3 (0.0-0.4); Eosinophils % 2.6 % (0.1-12.0); Hematocrit 37.9 % (37.0-47.0); Hemoglobin 12.8 g/dL (12.2-16.2); Lymphocytes # 3.7 K/mm3 (0.7-4.5); Lymphocytes % 48.6 % (10-50); Mean Corpuscular HGB Conc 33.8 g/dL (31.8-35.4); Mean Corpuscular Hemoglobin 31.2 pg (27.0-31.2); Mean Corpuscular Volume 92.6 fl (81-99); Mean Platelet Volume 8.9 fl (7.4-10.4); Monocytes # 0.5 K/mm3 (0.1-1.0); Monocytes % 5.9 % (1.7-9.3); Neutrophils # 3.1 K/mm3 (1.8-7.8); Neutrophils % 41.3 % (37.0-80.0); Platelet Count 277 K/mm3 (142-424); Red Blood Count 4.09 M/mm3 (4.20-5.40); Red Cell Distribution Width 13.9 % (11.5-17.5); White Blood Count 7.6 K/mm3 (4.8-10.8)
[2021-12-15 11:55] LABS: Alanine Aminotransferase 18 U/L (12-78); Albumin Level 3.9 g/dl (3.5-5.0); Albumin/Globulin Ratio 1.6 (1.1-1.8); Alkaline Phosphatase 62 U/L (38-126); Anion Gap 4.9 mEq/L (5-15); Aspartate Amino Transferase 31 U/L (14-36); Bilirubin,Total 0.6 mg/dl (0.2-1.3); Blood Urea Nitrogen 11 mg/dl (7-17); Calcium 9.3 mg/dl (8.4-10.2); Carbon Dioxide 32 mmol/L (22.0-30.0); Chloride 103 mmol/L (98-107); Creatinine Clearance Estimated 112 mL/min (50-200); Estimated Glomerular Filt Rate 77 ml/min (>60); GFR (African American) 93 ML/MIN (>60); Globulin 2.5 g/dL (1.3-3.2); Glucose 119 mg/dl (74-100); Potassium 3.9 mmoL/L (3.5-5.1); Sodium 136 mmol/L (136-145); Total Protein,Serum 6.4 g/dl (6.3-8.2)
[2021-12-15 12:01] LABS: D-Dimer 0.45 ug/mL (0.0-0.5)
[2021-12-15 12:12] LABS: Troponin I < 0.01 ng/ml (0.00-0.034)
[2021-12-15 13:25] VITALS: BP 145/85; PULSE 57; RESP 16; TEMP 37; O2SAT 98
== END 2021-12-15 13:26 | disposition home or self-care (01) ==
PROVIDERS: Emergency Provider Emergency Medicine; PCP Emergency Medicine
DX: J06.9 Acute upper respiratory infection, unspecified (principal); Z20.822 Contact with and (suspected) exposure to COVID-19; R07.89 Other chest pain; I10 Essential (primary) hypertension; E03.9 Hypothyroidism, unspecified; F41.8 Other specified anxiety disorders; F17.210 Nicotine dependence, cigarettes, uncomplicated
CPT/HCPCS: 71045; 80053; 84484; 85025; 85378; 93005; 99283; C9803; U0003; U0005

== ENCOUNTER 2022-01-02 10:24 | Emergency (ER) | payer OTHER, SELFPAY ==
[2022-01-02 11:50] VITALS: BP 185/94; PULSE 70; RESP 18; TEMP 36.8; O2SAT 97; BMI 25.2
--- NOTE | 2022-01-02 12:10 | XR_ITS ---
FINAL REPORT CLINICAL HISTORY: FALL/INJURY FINDINGS: RIGHT FEMUR Two views demonstrate no acute fracture or dislocation. The joint spaces appear normal. The visualized bony structures are well aligned. No soft tissue abnormality is seen. IMPRESSION: No acute process. Reviewed, Interpreted and Dictated by Mauro Resendez III, MD Transcribed by Charlotte Sheikh Authenticated by Mauro Resendez III, MD on 01/02/2022 01:13:09 PM [facility]
--- NOTE | 2022-01-02 12:10 | HMH.EDUTC ---
[facility] [place] Clinical Impression: Hematoma Disposition: Home, Self-Care Condition on Discharge: Good Instructions: DI for Hematoma (Bruise) Additional Instructions: Return to the emergency department if: You have new or worsening pain, or pain that does not get better with medicine. You have a fever. You have trouble moving the body part that has the hematoma. Rest the area. Rest will help your body heal and will also help prevent more damage. Apply ice as directed. Ice helps reduce swelling. Ice may also help prevent tissue damage. Use an ice pack, or put crushed ice in a bag. Cover it with a towel. Place it on your hematoma for 20 minutes every hour, or as directed. Ask how many times each day to apply ice, and for how many days. Compress the injury if possible. Lightly wrap the injury with an elastic or soft bandage. This may help control swelling. Ask your healthcare provider how to wrap your injury properly. Elevate the area as directed. If possible, raise the area above the level of your heart as often as you can. This will help decrease swelling. Return if needed Straight to ER if any life threatening symptoms Follow up with your Family Doctor if no improvement or any worsening of symptoms Referrals: See Henriquez MD [Primary Care Provider] - As needed Forms: Work/School Release Time of Disposition: 12:29 Medical Decision Making - Bassam Inquiry Pt receiving controlled substance: No Bassam was queried for this patient: No Vital Signs: 01/02/22 11:50 Temperature 98.2 F Temperature Source Oral Pulse Rate [Right Brachial] 70 Respiratory Rate 18 Blood Pressure [Right Arm] 185/94 H Blood Pressure Mean [Right Arm] 124 Blood Pressure Source [Right Arm] Automatic Cuff Blood Pressure Position [Right Arm] Sitting 02 Sat by Pulse Oximetry 97 Oxygen Delivery Method Room Air Orders (Tests/Meds): ORDERS Category Date Time Status Femur XR right 2 views [XR femur RT 2V] Stat Exams 01/02/22 12:10 Taken - Radiology Data #1 Image(s): Femur Image Reviewed: Yes I reviewed the patient's radiology image Preliminary Findings: No Fracture Seen [facility] [place]PI - General Stated complaint: ao 0128 fall, right thigh pain/discoloration Time Seen by Provider: 01/02/22 12:10 Mode of Arrival: Ambulatory Source of Information: Patient Limitations: No Limitations Description of Symptoms (Recalled from Triage Doc. by RN): PATIENT C/O PAIN AND BRUISING TO RIGHT THIGH. 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 ON/HIT HER RIGHT THIGH HEENT Symptoms (Recalled from RN notes): No Resp Symptoms (Recalled from RN notes): No Skin Symptoms (Recalled from RN notes): No MS Symptoms (Recalled from RN notes): Yes Functional Status (Recalled from RN notes): WNL - History of Present Illness Provider Complaint: Patient states she was gathering water a few days ago and was carrying a 5 gallon bucket back to her truck when she slipped and fell and the bucket came down on her right thigh area States that since then she has had bruising and feels a knot there so today when she was still having pain she came in to get it checked - Related Data Home Medications Medication Instructions Recorded Confirmed buprenorphine 8 mg-naloxone 2 mg 2 tab SUBLINGUAL DAILY tab 10/24/21 10/24/21 sublingual tablet Previous Rx's Medication Instructions Recorded Ondansetron [Zofran 4mg ODT] 4 mg PO TIDP PRN #15 tab 07/19/21 meloxicam 7.5 mg tablet See Rx Instructions .ROUTE 08/04/21 .COMPLEX #90 tab bisoprolol fumarate 5 mg tablet See Rx Instructions .ROUTE 09/27/21 .COMPLEX #90 tab loratadine 10 mg tablet See Rx Instructions .ROUTE 09/27/21 .COMPLEX #90 tab gabapentin 600 mg tablet 600 mg PO TID #90 tab 10/24/21 bupropion HCl 75 mg tablet See Rx Instructions .ROUTE 11/21/21 .COMPLEX #30 tab hydroxyzine pamoate 25 mg capsule See Rx Instructions .ROUTE 11/21/21 .COMPLEX #30 cap levoth
[2022-01-02 12:31] VITALS: BP 185/94; PULSE 70; RESP 18; TEMP 36.8; O2SAT 97
== END 2022-01-02 12:35 | disposition home or self-care (01) ==
PROVIDERS: Emergency Provider Nurse Practitioner; PCP Emergency Medicine
DX: S70.11XA Contusion of right thigh, initial encounter (principal); W01.198A Fall on same level from slipping, tripping and stumbling with subsequent striking against other object, initial encounter
CPT/HCPCS: 73552; 99202; G0463

== ENCOUNTER 2022-02-21 21:48 | Emergency (ER) | payer OTHER, SELFPAY ==
[2022-02-21 21:49] VITALS: BP 168/85; PULSE 71; RESP 21; TEMP 36.9; O2SAT 97; BMI 27.4
[2022-02-21 22:27] LABS: Appearance,Urine CLEAR (Clear); Bilirubin,Urine Negative (Negative); Blood, Urine 3+ (Negative); Color,Urine YELLOW (Yellow); Glucose,Urine (UA) Negative (Negative); Ketones,Urine Negative (Negative); Leukocyte Esterase,Urine Negative (Negative); Microscopic, Urine URINE MICROSCOPIC (MICROSCOPIC); Nitrate,Urine Negative (Negative); Protein,Urine Negative (Negative); Urobilinogen,Urine 0.2 EU/dl (0.2)
[2022-02-21 22:30] VITALS: BP 166/85; PULSE 69; O2SAT 97
[2022-02-21 22:40] LABS: Bacteria,Urine 1+ /lpf; Squamous Epithelial Cell,Urine Occasional #/hpf (0-5)
[2022-02-21 22:45] LABS: Basophils # 0.2 K/mm3 (0-0.2); Basophils % 1.3 % (0.1-2.0); Eosinophils # 0.3 K/mm3 (0.0-0.4); Eosinophils % 2.1 % (0.1-12.0); Hematocrit 42.7 % (37.0-47.0); Hemoglobin 14.1 g/dL (12.2-16.2); Lymphocytes % 22.9 % (10-50); Mean Corpuscular HGB Conc 32.9 g/dL (31.8-35.4); Mean Corpuscular Hemoglobin 30.9 pg (27.0-31.2); Mean Corpuscular Volume 93.9 fl (81-99); Mean Platelet Volume 8.1 fl (7.4-10.4); Monocytes # 0.8 K/mm3 (0.1-1.0); Neutrophils # 8.9 K/mm3 (1.8-7.8); Neutrophils % 67.6 % (37.0-80.0); Platelet Count 329 K/mm3 (142-424); Red Blood Count 4.54 M/mm3 (4.20-5.40); Red Cell Distribution Width 13.9 % (11.5-17.5); White Blood Count 13.2 K/mm3 (4.8-10.8)
--- NOTE | 2022-02-21 22:53 | CT_ITS ---
PROCEDURE INFORMATION: Exam: CT Abdomen And Pelvis Without Contrast Exam date and time: 02/21/2022 11:09 PM Age: 46 years old Clinical indication: Abdominal pain; Flank; Right; Patient HX: HX kidney stones; Additional info: Right flank pain TECHNIQUE: Imaging protocol: Computed tomography of the abdomen and pelvis without contrast. Radiation optimization: All CT scans at this facility use at least one of these dose optimization techniques: automated exposure control; mA and/or kV adjustment per patient size (includes targeted exams where dose is matched to clinical indication); or iterative reconstruction. COMPARISON: PTV US PELVIS-TRANSVAGINAL ONLY 01/05/2016 9:24 AM FINDINGS: Liver: Normal. No mass. Gallbladder and bile ducts: Normal. No calcified stones. No ductal dilation. Pancreas: Normal. No ductal dilation. Spleen: Normal. No splenomegaly. Adrenal glands: Normal. No mass. Kidneys and ureters: Mild right hydronephrosis and ureteral dilatation and Jacklyn ureteral stranding secondary to a 1 mm stone in the right UVJ. Stomach and bowel: Unremarkable. No obstruction. No mucosal thickening. Appendix: No evidence of appendicitis. Intraperitoneal space: Trace physiologic free fluid. Vasculature: Unremarkable. No abdominal aortic aneurysm. Lymph nodes: Unremarkable. No enlarged lymph nodes. Urinary bladder: Unremarkable as visualized. Reproductive: Hysterectomy. Bones/joints: Posterior lumbar fusion L4 through S1. Soft tissues: Unremarkable. IMPRESSION: Mild right hydronephrosis and ureteral dilatation secondary to a 1 mm stone in the right UVJ
[2022-02-21 23:01] VITALS: BP 154/93; PULSE 73; O2SAT 97
[2022-02-21 23:11] LABS: Alanine Aminotransferase 22 U/L (12-78); Albumin Level 4.3 g/dl (3.5-5.0); Albumin/Globulin Ratio 1.6 (1.1-1.8); Alkaline Phosphatase 95 U/L (38-126); Anion Gap 10.9 mEq/L (5-15); Aspartate Amino Transferase 29 U/L (14-36); Bilirubin,Total 0.6 mg/dl (0.2-1.3); Blood Urea Nitrogen 11 mg/dl (7-17); Calcium 8.9 mg/dl (8.4-10.2); Carbon Dioxide 27 mmol/L (22.0-30.0); Chloride 104 mmol/L (98-107); Creatinine Clearance Estimated 110 mL/min (50-200); Estimated Glomerular Filt Rate 90 ml/min (>60); GFR (African American) 109 ML/MIN (>60); Globulin 2.7 g/dL (1.3-3.2); Glucose 103 mg/dl (74-100); Potassium 3.9 mmoL/L (3.5-5.1); Sodium 138 mmol/L (136-145)
[2022-02-21 23:31] VITALS: BP 142/77; PULSE 65; O2SAT 97
[2022-02-22] VITALS: BP 145/75; PULSE 68; O2SAT 94
[2022-02-22 00:30] VITALS: BP 146/80; PULSE 65; O2SAT 94
--- NOTE | 2022-02-22 00:36 | HMH.EDGENADL ---
ED Disposition Clinical Impression: Kidney stone Disposition: Home, Self-Care Condition on Discharge: Good Instructions: DI for Kidney Stones Additional Instructions: You have been evaluated for flank pain, kidney stone. No signs of urinary tract infection at this time. Please take anti-inflammatory medicines like ibuprofen. Take Zofran for nausea. Flomax nightly. [place] for extreme pain. Follow-up with urology. Return to the emergency department for any new or worsening symptoms. Prescriptions: Hydrocod/Acet 5/325 mg [[place] 5/325mg tablet] 1 tab PO Q6HP PRN #12 tab PRN Reason: Severe Pain Transmission Status: [facility] to [facility] Tamsulosin HCl [Flomax 0.4mg capsule] 0.4 mg PO HS #5 cap Transmission Status: Pending to [facility] Ibuprofen [Ibuprofen 600mg Tablet] 600 mg PO Q8 #30 tab Transmission Status: Pending to [facility] Ondansetron [Zofran 4mg ODT] 4 mg PO Q6 PRN #12 tab PRN Reason: Nausea Transmission Status: Pending to [facility] Referrals: See Henriquez MD [Primary Care Provider] - Saul Vega MD [Staff Physician] - Time of Disposition: 00:42 - Critical Care Critical Care Time: No Attestation: On 02/21/22, the high probability of a clinically significant, sudden or life threatening deterioration of the following system(s) required my full and direct attention, intervention and personal management. The time I documented below is in addition to time spent performing reported procedures but includes the following listed in this critical care notation. Medical Decision Making - Medical Records Medical records reviewed: Yes: I reviewed the patient's medical records. - Bassam Inquiry Pt receiving controlled substance: No Vital Signs: 02/21/22 21:49 Temperature 98.5 F Temperature Source Oral Pulse Rate [Right] 71 Respiratory Rate 21 Blood Pressure [Right Arm] 168/85 H Blood Pressure Mean [Right Arm] 112 Blood Pressure Source [Right Arm] Automatic Cuff 02 Sat by Pulse Oximetry 97 Oxygen Delivery Method Room Air - Lab Data Lab Results 02/21/22 22:25: Urine Color Yellow, Urine Appearance Clear, Urine pH 6.0, Ur Specific [place] 1.020, Urine Protein Negative, Urine Glucose (UA) Negative, Urine Ketones Negative, Urine Blood 3+, Urine Nitrate Negative, Urine Bilirubin Negative, Urine Urobilinogen 0.2, Ur Leukocyte Esterase Negative, Urine RBC 5-10, Urine WBC 3-5, Ur Squamous Epith Cells Occasional, Urine Bacteria 1+ 02/21/22 22:30: WBC 13.2 H, RBC 4.54, Hgb 14.1, Hct 42.7, MCV 93.9, MCH 30.9, MCHC 32.9, RDW 13.9, Plt Count 329, MPV 8.1, Neut % (Auto) 67.6, Lymph % (Auto) 22.9, [place] % (Auto) 6.0, Eos % (Auto) 2.1, Baso % (Auto) 1.3, Neut # (Auto) 8.9 H, Lymph # (Auto) 3.0, [place] # (Auto) 0.8, Eos # (Auto) 0.3, Baso # (Auto) 0.2 02/21/22 22:30: Sodium 138, Potassium 3.9, Chloride 104, Carbon Dioxide 27, Anion Gap 10.9, BUN 11, Creatinine 0.70, Estimated Creat Clear 110, Estimated GFR 90, Est GFR ( Amer) 109, Glucose 103 H, Calcium 8.9, Total Bilirubin 0.6, AST 29, ALT 22, Alkaline Phosphatase 95, Total Protein 7.0, Albumin 4.3, Globulin 2.7, Albumin/Globulin Ratio 1.6 Result diagrams: 02/21/22 22:30 02/21/22 22:30 Orders (Tests/Meds): ED MEDICATIONS Discontinued Medications Generic Name Dose Route Start Last Admin Trade Name Jimy PRN Reason Stop Dose Admin Ketorolac Tromethamine 30 mg 02/21/22 22:53 02/21/22 22:56 Ketorolac 30mg/Ml Vial IV 02/21/22 22:54 30 mg ONCE ONE Administration - CT Data CT Scan: Abdomen Time Received: 00:[address] Reviewed: Yes: I have reviewed the patient's CT results, I have viewed the radiologist's interpretation Findings Narrative: IMPRESSION: Mild right hydronephrosis and ureteral dilatation secondary to a 1 mm stone in the right UVJ Medical Decision Narrative: In summary this is a 46-year-old female presenting to the emergency department with right-
--- NOTE | 2022-02-22 00:39 | PC.NURSE ---
Pt resting well.
[2022-02-22 01:00] VITALS: BP 134/72; PULSE 67; O2SAT 95
[2022-02-22 01:31] VITALS: BP 147/82; PULSE 65; O2SAT 95
[2022-02-22 01:34] VITALS: BP 134/72; PULSE 69; RESP 16; TEMP 36.7
== END 2022-02-22 01:38 | disposition home or self-care (01) ==
PROVIDERS: Emergency Provider Emergency Medicine; PCP Emergency Medicine
DX: N20.0 Calculus of kidney (principal); F41.8 Other specified anxiety disorders; I10 Essential (primary) hypertension; F17.210 Nicotine dependence, cigarettes, uncomplicated
CPT/HCPCS: 74176; 80053; 81001; 85025; 96374; 99284

== ENCOUNTER → 2022-03-19 12:00 | Outpatient (CLI) | payer OTHER, SELFPAY | PROVIDERS: PCP Emergency Medicine; Visit Provider Surgery | DX: Z01.812 Encounter for preprocedural laboratory examination (principal); Z11.52 Encounter for screening for COVID-19; Z12.11 Encounter for screening for malignant neoplasm of colon | CPT/HCPCS: C9803; U0003; U0005 ==

== ENCOUNTER 2022-03-20 06:16 | Day surgery (SDC) | payer OTHER, SELFPAY ==
[2022-03-19 10:56] VITALS: BMI 26.5
[2022-03-20 07:06] VITALS: BP 142/84; PULSE 62; RESP 18; TEMP 36.7; O2SAT 99
[2022-03-20 07:25] VITALS: O2SAT 99
[2022-03-20 08:00] VITALS: BP 152/86; PULSE 64; RESP 16; TEMP 36.3; O2SAT 98
--- NOTE | 2022-03-20 08:03 | HMH.SCOPE ---
- Procedure: Date: 03/20/22 Patient Date of :: 1975 Procedure Performed:: Colonoscopy with polypectomy Indications:: Screening Irritable bowel with alternating constipation and diarrhea Performing Provider:: Shailesh Pryor MD Referring Provider:: . Sedation:: Monitored anesthesia care Procedure:: After informed consent was obtained the patient was taken to the endoscopy suite. Sedation ensued after the patient was transferred to the left lateral decubitus position. Pulse, blood pressure, and oxygen saturation were monitored throughout the procedure. Digital rectal exam revealed no significant abnormality. The colonoscope was placed in position. The entire colon was evaluated. The colonoscope was carefully removed and the patient was transferred to recovery in stable condition. Please see findings and specimens below for detail. Findings:: Bowel preparation moderate to poor Fairly severe spasticity Sessile polyp at 20 cm Specimens:: Sessile polyp at 20 cm (cold snare) Recommendations:: Timing of repeat colonoscopy is pending pathology but will likely be around 1 year with extended bowel preparation Gastroenterology consultation warranted secondary to history of IBS with alternating constipation/diarrhea (defer next colonoscopy to the gastroenterology service) Complications:: No immediate with the exception of limited bowel preparation Estimated blood obtained (mL): 1
--- NOTE | 2022-03-20 08:04 | HMH.ANESCL ---
[facility] Anesthesia Checklist - Structural Data Admitted From: Home Planned Operative Procedure/s: colonoscopy Consent for Planned Operative Procedure(s) Verified: Yes - Airway Assessment C-Spine Mobility Assessed: Yes TMJ Mobility Assessed: Yes Dentition: Poor Dentition - Neurological Assessment Level of Consciousness: Awake, Alert, Appropriate - Anesthesia Plan Anesthesia Risk discussed: Yes Anesthesia Plan: Patient unable to respond/answer ASA Class: II Anesthesia Type: MAC [facility] History I have reviewed the patient's past medical history: Yes Medical History: Reports:: Anxiety, Depression, Hepatitis, Hypertension Denies:: Cancer, Diabetes Mellitus Type 1, Diabetes Mellitus Type 2, Internal Pacemaker, MRSA, Seizures *Have you ever received a pneumonia vaccine?: Yes *Have you received a flu vaccine this season?: Yes Other Medical History: Reports: Hypothyroidism Anesthesia experience/problems:: none Other Surgeries: Yes: Dilation and Curettage, Diagnostic Lap, Tubal Ligation, Other. No: Pacemaker Amputation: No Fractures: No - *Social History Last grade of school completed: 11th or 12th Smoking Status: Current every day smoker Tobacco Type: cigarettes # Packs/Day (cigarettes): 1 Alcohol Intake: never Substance Use Type: IV drugs, former substance user *Occupational Status:: employed Housing: house Household Members: significant other *Travel in the last 8 weeks: None - Psychiatric History Pschychiatric History:: Reports:: Anxiety, Depression Family Hx:: Cancer, Diabetes, Heart Attack
[2022-03-20 08:10] VITALS: BP 149/88; PULSE 68; RESP 16; TEMP 36.3; O2SAT 97
[2022-03-20 08:20] VITALS: BP 147/82; PULSE 60; RESP 16; TEMP 36.3; O2SAT 98
[2022-03-20 08:30] VITALS: BP 159/86; PULSE 67; RESP 16; TEMP 36.3; O2SAT 98
== END 2022-03-20 08:30 | disposition home or self-care (01) ==
LOC: OUTP 06:17
PROVIDERS: PCP Emergency Medicine; Visit Provider Surgery
PROC: 0DJD8ZZ Inspection of Lower Intestinal Tract, Via Natural or Artificial Opening Endoscopic (ICD-10-PCS; CPT 45385; principal; 2022-03-20 07:30)
DX: Z12.11 Encounter for screening for malignant neoplasm of colon (principal); K63.5 Polyp of colon; K58.2 Mixed irritable bowel syndrome; I10 Essential (primary) hypertension; K75.9 Inflammatory liver disease, unspecified; F41.9 Anxiety disorder, unspecified; F32.A Depression, unspecified; E03.9 Hypothyroidism, unspecified; F19.11 Other psychoactive substance abuse, in remission; Z80.9 Family history of malignant neoplasm, unspecified; Z82.3 Family history of stroke
CPT/HCPCS: 45385

== ENCOUNTER 2022-07-10 11:36 | Emergency (ER) | payer OTHER, SELFPAY ==
[2022-07-10] VITALS (7 sets, daily range): BP systolic 151–169; BP diastolic 85–93; PULSE 56–75; RESP 18; TEMP 37.1–37.2; O2SAT 96–98; BMI 26.5
--- NOTE | 2022-07-10 11:45 | PC.NURSE ---
1145 PT SWABBED FOR FLU-COVID. WARM BLANKET PROVIDED. PT PLACED IN ISOLATION PRECAUTIONS
--- NOTE | 2022-07-10 11:56 | XR_ITS ---
FINAL REPORT CLINICAL HISTORY: cough-- smoker-- no surgery COMPARISON: 12/15/2021 FINDINGS: A single portable view of the chest was obtained. The heart size and pulmonary vascularity are within normal limits. The mediastinum is within normal limits. There are mild bibasilar pulmonary opacities which may represent atelectasis or scarring. The bony thorax is intact. IMPRESSION: Mild bibasilar atelectasis or scarring. Reviewed, Interpreted and Dictated by Mauro Resendez III, MD Transcribed by Sunshine Vences Authenticated and [facility]
[2022-07-10 12:02] LABS: Influenza A, PCR Not Detected (NotDetected); Influenza B, PCR Not Detected (NotDetected)
[2022-07-10 12:38] LABS: Coronavirus 19, PCR Detected (NotDetected)
--- NOTE | 2022-07-10 13:11 | PC.NURSE ---
PT RESTING ON RIGHT SIDE, NO DISTRESS NOTED. AWAKENS EASILY. NO NEEDS VOICED. CALL LIGHT WITHIN REACH
--- NOTE | 2022-07-10 13:58 | PC.NURSE ---
1357 ED MD AT BEDSIDE TO REEVALUATE PT
--- NOTE | 2022-07-10 14:01 | HMH.EDGENADL ---
ED Disposition Clinical Impression: Upper respiratory tract infection due to COVID-19 virus Disposition: Home, Self-Care Condition on Discharge: Good Instructions: Coronavirus Disease 2019 Prescriptions: methylPREDNISolone [Medrol 4mg tab] 4 mg PO DIRECTED #21 tab Transmission Status: Pending to [facility] Azithromycin [Zithromax 250mg tab] 250 mg PO DIRECTED #6 tab Transmission Status: Pending to [facility] Referrals: See Henriquez MD [Primary Care Provider] - - Critical Care Critical Care Time: No Attestation: On 07/10/22, the high probability of a clinically significant, sudden or life threatening deterioration of the following system(s) required my full and direct attention, intervention and personal management. The time I documented below is in addition to time spent performing reported procedures but includes the following listed in this critical care notation. Medical Decision Making - Medical Records Medical records reviewed: Yes: I reviewed the patient's medical records. - Bassam Inquiry Pt receiving controlled substance: No Vital Signs: 07/10/22 11:37 07/10/22 11:42 07/10/22 12:00 Temperature 98.9 F Temperature Source Oral Pulse Rate 75 Pulse Rate [Radial] 68 Respiratory Rate 18 Blood Pressure 161/85 H 169/88 H Blood Pressure [Right Arm] 161/85 H Blood Pressure Mean 136 Blood Pressure Mean [Right Arm] 110 Blood Pressure Source [Right Arm] Automatic Cuff Blood Pressure Position [Right Arm] Sitting 02 Sat by Pulse Oximetry 98 96 Oxygen Delivery Method Room Air 07/10/22 12:30 07/10/22 13:00 07/10/22 13:30 Temperature Temperature Source Pulse Rate 59 L 64 56 L Pulse Rate [Radial] Respiratory Rate Blood Pressure 164/93 H 158/86 H 164/85 H Blood Pressure [Right Arm] Blood Pressure Mean 134 114 111 Blood Pressure Mean [Right Arm] Blood Pressure Source [Right Arm] Blood Pressure Position [Right Arm] 02 Sat by Pulse Oximetry 96 98 97 Oxygen Delivery Method - Lab Data Lab Results 07/10/22 11:43: SARS-CoV-2 (PCR) Detected A, Influenza A Untype (PCR) Not detected, Influenza Type B (PCR) Not detected Orders (Tests/Meds): ED MEDICATIONS Discontinued Medications Generic Name Dose Route Start Last Admin Trade Name Freq PRN Reason Stop Dose Admin Dexamethasone 10 mg 07/10/22 11:57 07/10/22 12:10 Dexamethasone 4mg Tablet PO 07/10/22 11:58 10 mg ONCE ONE Administration Diphenhydramine HCl 25 mg 07/10/22 11:56 07/10/22 12:08 Diphenhydramine 25mg Capsule PO 07/10/22 11:57 25 mg ONCE ONE Administration Ibuprofen 800 mg 07/10/22 11:56 07/10/22 12:09 Ibuprofen 400 Mg Tablet PO 07/10/22 11:57 800 mg ONCE ONE Administration Ondansetron HCl 4 mg 07/10/22 11:57 07/10/22 12:08 Ondansetron 4mg Odt SL 07/10/22 11:58 4 mg ONCE ONE Administration - Radiology Data #1 Image(s): Chest Image Reviewed: Yes I reviewed the patient's radiology results, Yes I reviewed the patient's radiology image, Yes I have reviewed radiologist's interpretation IMPRESSION: Mild bibasilar atelectasis or scarring. - Reevaluation(s) Time: 14:05 Reevaluation #1: On reevaluation, patient is feeling better. She was positive for COVID. At this time she has no evidence of respiratory distress or hypoxia. We ambulated the patient in there is no difficulty in breathing. Patient be placed on a short course of steroids as well as antibiotics. Needs follow-up with PCP in 48 hours. Was given strict return precautions. Verbalized understanding. Medical Decision Narrative: 47-year-old female presented to the emergency department with URI type symptoms. The patient has had some congestion, sore throat and cough. Nontoxic-appearing. Hemodynamically stable. Work-up initiated. General Adult HPI - General Chief complaint: Upper Respiratory Infection Stated complai
== END 2022-07-10 14:20 | disposition home or self-care (01) ==
PROVIDERS: Emergency Provider Emergency Medicine; PCP Emergency Medicine
DX: U07.1 COVID-19 (principal); J06.9 Acute upper respiratory infection, unspecified; Z79.899 Other long term (current) drug therapy; Z88.6 Allergy status to analgesic agent; Z91.040 Latex allergy status
CPT/HCPCS: 71045; 99283; C9803; U0003; U0005

== ENCOUNTER → 2022-07-27 11:31 | Outpatient (CLI) | payer OTHER, SELFPAY ==
--- NOTE | 2022-07-27 11:34 | XR_ITS ---
FINAL REPORT CLINICAL HISTORY: shortness of breath COMPARISON: 07/10/2022 FINDINGS: TWO-VIEW CHEST The heart size is normal. The mediastinum is normal. The lungs are clear. There is no pneumothorax. IMPRESSION: No acute cardiopulmonary process. Reviewed, Interpreted and Dictated by Adria Merrill MD Transcribed by Charlotte Sheikh Authenticated and . [facility]
== END ==
PROVIDERS: PCP Emergency Medicine; Visit Provider Emergency Medicine
DX: R06.02 Shortness of breath (principal)
CPT/HCPCS: 71046

== ENCOUNTER 2022-11-22 11:18 | Emergency (ER) | payer OTHER, SELFPAY ==
--- NOTE | 2022-11-22 11:58 | EXP.UTC ---
Discharge Plan Disposition Patient Disposition: Home, Self-Care Condition: Good Prescriptions Prescriptions: New benzonatate [benzonatate] 100 mg capsule 100 mg PO TIDP PRN (Reason: Cough) Qty: 30 0RF promethazine 25 mg Tablet 25 mg PO Q6H PRN (Reason: Nausea And Vomiting) Qty: 20 0RF ondansetron 4 mg Tablet,Disintegrating 4 mg PO Q8H PRN (Reason: Nausea) Qty: 20 0RF No Action ketorolac 10 mg tablet 10 mg PO Q8H Qty: 9 0RF Rx Instructions: patient has had a toradol shot in the office methylprednisolone [Medrol (Noe)] 4 mg tablets,dose pack See Rx Instructions PO PER PKG DIR Qty: 21 0RF Rx Instructions: PO PER PKG DIR buprenorphine-naloxone 8-2 mg tablet, sublingual 2 tab SUBLINGUAL DAILY Label Comments: DISSOLVE 2 TABLETS UNDER THE TONGUE EVERY DAY Trulance 3 mg tablet 3 mg PO DAILY gabapentin 600 mg tablet 600 mg PO TID Qty: 90 2RF lisinopril 5 mg tablet See Rx Instructions .ROUTE .COMPLEX Qty: 90 5RF Dose Instruction: TAKE ONE TABLET BY MOUTH EVERY DAY Rx Instructions: TAKE ONE TABLET BY MOUTH EVERY DAY bupropion HCl 75 mg tablet See Rx Instructions .ROUTE .COMPLEX Qty: 30 5RF Dose Instruction: TAKE ONE TABLET BY MOUTH EVERY DAY Rx Instructions: TAKE ONE TABLET BY MOUTH EVERY DAY hydroxyzine pamoate 25 mg capsule See Rx Instructions .ROUTE .COMPLEX Qty: 30 5RF Dose Instruction: TAKE ONE CAPSULE BY MOUTH EVERY DAY AT BEDTIME NEEDED FOR insomnia Rx Instructions: TAKE ONE CAPSULE BY MOUTH EVERY DAY AT BEDTIME NEEDED FOR insomnia levothyroxine 25 mcg tablet See Rx Instructions .ROUTE .COMPLEX Qty: 30 5RF Dose Instruction: TAKE ONE TABLET BY MOUTH EVERY DAY Rx Instructions: TAKE ONE TABLET BY MOUTH EVERY DAY meloxicam 7.5 mg tablet See Rx Instructions .ROUTE .COMPLEX Qty: 90 1RF Dose Instruction: TAKE ONE TABLET BY MOUTH EVERY DAY --TAKE WITH FOOD-- Rx Instructions: TAKE ONE TABLET BY MOUTH EVERY DAY --TAKE WITH FOOD-- loratadine 10 mg tablet See Rx Instructions .ROUTE .COMPLEX Qty: 90 3RF Dose Instruction: TAKE ONE TABLET BY MOUTH EVERY DAY Rx Instructions: TAKE ONE TABLET BY MOUTH EVERY DAY bisoprolol fumarate 5 mg tablet See Rx Instructions .ROUTE .COMPLEX Qty: 90 3RF Dose Instruction: TAKE ONE TABLET BY MOUTH EVERY DAY Rx Instructions: TAKE ONE TABLET BY MOUTH EVERY DAY Referrals Follow up/Referrals: See Henriquez MD [Primary Care Provider] - See instructions Activity Restrictions/Add. Instructions Additional Instructions/Restrictions: Drink plenty of fluids. Take tylenol or ibuprofen for pain or fever. Take the medications as directed. Follow up with your regular doctor. GO TO THE ER FOR ANY WORSENING SYMPTOMS Clinical Impressions Clinical Impression: Acute viral syndrome Stand Alone Forms Stand Alone Forms: Work/School Release Instructions Patient Instructions: Coronavirus Disease 2019, Preventing the Spread of Coronavirus Discharge Instructions Discharge ED Provider: Ron Wallace [facility] HPI General Stated complaint: covid test Time Seen by Provider: 11/22/22 11:58 History of Present Illness Provider Complaint: She states that for the past 2 days she has had body aches, chills, fever, and head ache. 6 of her close coworkers are sick with covid-19 at this time. She denies any shortness of breath. She does have a cough, but she describes it as dry and nonproductive. Her biggest complaint at this time is that she has been very nauseated and vomited several times last night. She is also having diarrhea. She denies any abdominal pain. Related Data Home Medications Medication Instructions Recorded Confirmed buprenorphine 8 mg-naloxone 2 mg 2 tab sublingual DAILY addiction 10/24/21 11/09/22 sublingual tablet plecanatide 3 mg tablet (Trulance) 3 mg PO DAILY 09/25/22 12
[2022-11-22 12:05] VITALS: BP 156/78; PULSE 85; RESP 16; TEMP 36.8; O2SAT 97; BMI 28.3
[2022-11-22 13:10] VITALS: BP 156/78; PULSE 85; RESP 16; TEMP 36.8
== END 2022-11-22 13:19 | disposition home or self-care (01) ==
PROVIDERS: Emergency Provider Nurse Practitioner Family; PCP Emergency Medicine
DX: R50.9 Fever, unspecified (principal); R52 Pain, unspecified; R51.9 Headache, unspecified; B34.9 Viral infection, unspecified
CPT/HCPCS: 99212; C9803; G0463; U0003; U0005

== ENCOUNTER 2023-01-01 15:00 | Emergency (ER) | payer OTHER, SELFPAY ==
[2023-01-01 15:05] VITALS: BP 160/112; PULSE 140; RESP 18; TEMP 37.1; O2SAT 98; BMI 28.3
--- NOTE | 2023-01-01 15:19 | XR_ITS ---
FINAL REPORT CLINICAL HISTORY: fall, lower back pain, fell saturday night. FINDINGS: LUMBAR SPINE Three views demonstrate no acute fracture. There are mild degenerative changes with small osteophyte. There is fusion from L4-S1. There is no malalignment. IMPRESSION: Degenerative and postoperative change. Reviewed, Interpreted and Dictated by Mauro Resendez III, MD Transcribed by Charlotte Sheikh Authenticated and [facility]
--- NOTE | 2023-01-01 15:24 | ECG_ITS ---
APPROVED REPORT Exam: Resting ECG HR:127 bpm ECG Measurements Heart Rate 127 AXES WV 130 P 76 QRSd 77 QRS 62 QT 312 T 69 QTc 387 Conclusion SINUS TACHYCARDIA ABNORMAL RHYTHM ECG UNCONFIRMED REPORT Electronically signed by : Tad Waller MD 01/02/2023 21:35:07
--- NOTE | 2023-01-01 15:29 | HMH.EDGENADL ---
Discharge Plan Disposition Patient Disposition: Home, Self-Care Condition: Good Prescriptions Prescriptions: New hydrocodone-acetaminophen 5-325 mg tablet 1 tab PO Q6H PRN (Reason: pain) Qty: 10 0RF No Action buprenorphine-naloxone 8-2 mg tablet, sublingual 2 tab SUBLINGUAL DAILY Label Comments: DISSOLVE 2 TABLETS UNDER THE TONGUE EVERY DAY Trulance 3 mg tablet 3 mg PO DAILY meloxicam 7.5 mg tablet See Rx Instructions .ROUTE .COMPLEX PRN Dose Instruction: TAKE ONE TABLET BY MOUTH EVERY DAY --TAKE WITH FOOD-- Rx Instructions: TAKE ONE TABLET BY MOUTH EVERY DAY --TAKE WITH FOOD-- PRN; gabapentin 600 mg tablet 600 mg PO TID Qty: 90 2RF lisinopril 5 mg tablet See Rx Instructions .ROUTE .COMPLEX Qty: 90 5RF Dose Instruction: TAKE ONE TABLET BY MOUTH EVERY DAY Rx Instructions: TAKE ONE TABLET BY MOUTH EVERY DAY loratadine 10 mg tablet See Rx Instructions .ROUTE .COMPLEX Qty: 90 3RF Dose Instruction: TAKE ONE TABLET BY MOUTH EVERY DAY Rx Instructions: TAKE ONE TABLET BY MOUTH EVERY DAY bisoprolol fumarate 5 mg tablet See Rx Instructions .ROUTE .COMPLEX Qty: 90 3RF Dose Instruction: TAKE ONE TABLET BY MOUTH EVERY DAY Rx Instructions: TAKE ONE TABLET BY MOUTH EVERY DAY hydroxyzine pamoate 25 mg capsule See Rx Instructions .ROUTE .COMPLEX Qty: 30 5RF Dose Instruction: TAKE ONE CAPSULE BY MOUTH EVERY DAY AT BEDTIME NEEDED FOR insomnia Rx Instructions: TAKE ONE CAPSULE BY MOUTH EVERY DAY AT BEDTIME NEEDED FOR insomnia levothyroxine 25 mcg tablet See Rx Instructions .ROUTE .COMPLEX Qty: 30 5RF Dose Instruction: TAKE ONE TABLET BY MOUTH EVERY DAY Rx Instructions: TAKE ONE TABLET BY MOUTH EVERY DAY bupropion HCl 75 mg tablet See Rx Instructions .ROUTE .COMPLEX Qty: 30 5RF Dose Instruction: TAKE ONE TABLET BY MOUTH EVERY DAY Rx Instructions: TAKE ONE TABLET BY MOUTH EVERY DAY benzonatate [benzonatate] 100 mg capsule 100 mg PO TIDP PRN (Reason: Cough) Qty: 30 0RF Referrals Follow up/Referrals: See Henriquez MD [Primary Care Provider] - See instructions Activity Restrictions/Add. Instructions Additional Instructions/Restrictions: Additional instructions for BACK PAIN: See your physician as soon as possible for further evaluation. Return immediately if back pain becomes intolerable, or if fever, numbness or weakness of your legs, loss of control of your bowels or bladder. Additional instructions for CONTROLLED SUBSTANCES: You have been prescribed a medication that is a controlled substance. Controlled substances include pain medications known as opiates and sedative nerve medications known as benzodiazepines. Tramadol, fioricet, and gabapentin are also controlled substances. Some common opiates include: Codeine (such as Tylenol #3) Hydrocodone (Vicodin, Lortab, Lorcet, [place]) Oxycodone (Percocet, Percodan, Oxycodone, Oxy IR) Some common benzodiazepines include: Diazepam (Valium) Lorazepam (Ativan) Alprazolam (Xanax) Clonazepam (Klonopin) Oxazepam (Serax) All of these controlled substances are highly addictive and frequently abused. Misuse can and frequently does lead to addiction as well as overdose and . Medication should be stored in a locked cabinet or other secure storage unit. Do not store the medication in a motor vehicle. Short term supplies, 3 days or less, are prescribed because of the highly addictive nature of the medication. Any of the controlled substance medication NOT taken should be disposed of properly and NOT SAVED. The recommended method of disposing of unused medications is: Place the medicines in a sealable plastic bag. If the medicine is a solid, crush it or add water to dissolve it. Add something undesirable (cat litter, coffee grounds, etc.) Dispose of sealed bag in household trash Do not flush or pour unus
[2023-01-01 16:00] VITALS: BP 148/106; PULSE 115; O2SAT 97
[2023-01-01 16:30] VITALS: BP 140/106; PULSE 123; O2SAT 97
[2023-01-01 17:00] VITALS: BP 148/103; PULSE 117; O2SAT 96
[2023-01-01 17:14] VITALS: BP 160/103; PULSE 116; O2SAT 95
[2023-01-01 17:17] VITALS: BP 160/103; PULSE 116; RESP 16; TEMP 37.1; O2SAT 96
== END 2023-01-01 17:17 | disposition home or self-care (01) ==
PROVIDERS: Emergency Provider Emergency Medicine; PCP Emergency Medicine
DX: S39.012A Strain of muscle, fascia and tendon of lower back, initial encounter (principal); W01.0XXA Fall on same level from slipping, tripping and stumbling without subsequent striking against object, initial encounter; I10 Essential (primary) hypertension; F17.210 Nicotine dependence, cigarettes, uncomplicated; F41.9 Anxiety disorder, unspecified; E03.9 Hypothyroidism, unspecified
CPT/HCPCS: 72100; 93005; 96372; 99283; 99284; J2405

== ENCOUNTER → 2023-03-27 15:34 | Outpatient (CLI) | payer OTHER, SELFPAY ==
--- NOTE | 2023-03-27 15:35 | MM_ITS ---
PROCEDURE INFORMATION: Exam: MG Bilateral Screening 3D Mammography Exam date and time: 03/27/2023 3:29 PM Age: 47 years old Clinical indication: Screening examination TECHNIQUE: Imaging protocol: Bilateral Screening tomosynthesis and 2D mammography including computer-aided detection (CAD) when performed. COMPARISON: 1. MG MM DIG SCREENING MAMM BI W/CAD 10/31/2021 3:19 PM 2. MG MM DIG SCREENING MAMM BI W/CAD 04/19/2020 8:07 AM FINDINGS: MAMMOGRAPHY: Breast composition: There are scattered areas of fibroglandular density. Mass: Questionable 0.6 cm mass in the posterior third of the left medial breast only well seen in the craniocaudal projection Architectural distortion: None. Calcifications: No suspicious calcifications. Asymmetric density: None. Skin thickening: None. Axillary adenopathy: None. IMPRESSION: Patient to be recalled for a spot compression view of the left breast in the craniocaudal projection, a full 90 degree lateral view of the left breast, and left breast ultrasound for further evaluation of a questionable left breast mass. ASSESSMENT: BI-RADS Category 0: Incomplete- Need Additional Imaging Evaluation and/or Prior Mammograms for Comparison
== END ==
PROVIDERS: PCP Emergency Medicine; Visit Provider Emergency Medicine
DX: Z12.31 Encounter for screening mammogram for malignant neoplasm of breast (principal)
CPT/HCPCS: 77063; 77067

== ENCOUNTER → 2023-04-17 14:17 | Outpatient (CLI) | payer OTHER, SELFPAY ==
--- NOTE | 2023-04-17 14:17 | MM_ITS ---
PROCEDURE INFORMATION: Exam: US Left Breast, Complete MG Left Diagnostic Breast Tomosynthesis Exam date and time: 04/17/2023 2:24 PM Age: 47 years old Clinical indication: Patient recalled on the basis of a screening mammogram for further evaluation; Left breast; mass TECHNIQUE: Imaging protocol: Complete ultrasound of all four quadrants of the left breast and the retroareolar regions, including ultrasound of the axilla when performed. Left Diagnostic tomosynthesis and 2D mammography including computer-aided detection (CAD) when performed. Unilateral or bilateral exam. COMPARISON: MG MM DIG MAMM DX UNILAT LT CAD 04/17/2023 1:44 PM FINDINGS: MAMMOGRAPHY: Digital diagnostic spot compression views of the left breast and 90 degree lateral view of the left breast demonstrate normal overlapping fibroglandular structures without persistent mass or asymmetry identified. ULTRASOUND: Sonographic images of the left breast including the retroareolar region, all 4 quadrants and the axilla were obtained. Minimal subcentimeter cystic changes noted in the 10 o'clock axis as well as the 12 o'clock axis. In the left 3 o'clock axis 3 cm from the nipple is a well-circumscribed uniformly hypoechoic ovoid solid mass measuring 0.4 x 0.5 x 0.2 cm in dimension, likely benign in etiology. No architectural distortion or acoustical shadowing. No skin thickening or axillary adenopathy. IMPRESSION: Sonographically visible probably benign subcentimeter mass in the 3 o'clock axis. The finding is not seen on mammography. A six-month follow-up targeted left breast ultrasound is recommended to ensure stability over time ASSESSMENT: BI-RADS Category 3: Probably benign
== END ==
PROVIDERS: PCP Emergency Medicine; Visit Provider Emergency Medicine
DX: N63.20 Unspecified lump in the left breast, unspecified quadrant (principal)
CPT/HCPCS: 76641; 77061; 77065; G0279

== ENCOUNTER 2023-04-21 20:48 | Emergency (ER) | payer OTHER, SELFPAY ==
[2023-04-21 22:37] VITALS: BP 151/72; PULSE 88; RESP 22; TEMP 36.7; O2SAT 100; BMI 28.2
--- NOTE | 2023-04-21 22:42 | CT_ITS ---
PROCEDURE INFORMATION: Exam: CT Abdomen And Pelvis Without Contrast Exam date and time: 04/21/2023 10:51 PM Age: 47 years old Clinical indication: Abdominal pain; Flank; Left; Additional info: Left side flank pain, dysuria TECHNIQUE: Imaging protocol: Computed tomography of the abdomen and pelvis without contrast. Radiation optimization: All CT scans at this facility use at least one of these dose optimization techniques: automated exposure control; mA and/or kV adjustment per patient size (includes targeted exams where dose is matched to clinical indication); or iterative reconstruction. REPORTING DATA: Count of CT and Cardiac NM exams in prior 12 months: This patient has received 0 known CTs and 0 known cardiac nuclear medicine studies in the 12 months prior to the current study. COMPARISON: CT ABDOMEN PELVIS WO CON 02/21/2022 11:09 PM FINDINGS: Liver: Unremarkable. Gallbladder and bile ducts: Unremarkable. Pancreas: Unremarkable. Spleen: Calcified splenic granulomas. Adrenal glands: Unremarkable. Kidneys and ureters: Left renal enlargement/edema with minimal perinephric stranding. Mild left hydronephrosis. Mild dilation of the left ureter . Calculus within the distal left ureter near the UV J measuring 3 mm. Resolution of prior right hydronephrosis and clearing of prior right UVJ calculus. Stomach and bowel: Unremarkable. No bowel obstruction. Appendix: No evidence of appendicitis. Intraperitoneal space: Unremarkable. Vasculature: Mild atherosclerotic calcifications in the abdomen and pelvis. Lymph nodes: Unremarkable. Urinary bladder: Unremarkable as visualized. Reproductive: Status post hysterectomy. Bones/joints: Post lumbosacral fixation effusion. Soft tissues: Unremarkable. IMPRESSION: Mild left hydroureteronephrosis associated with obstructing 3 mm calculus in the left distal ureter near the ureterovesical junction.
[2023-04-21 22:50] LABS: Basophils # 0.1 K/mm3 (0-0.2); Basophils % 0.3 % (0.1-2.0); Eosinophils # 0.2 K/mm3 (0.0-0.4); Hematocrit 43.9 % (37.0-47.0); Hemoglobin 14.5 g/dL (12.2-16.2); Lymphocytes # 2.1 K/mm3 (0.7-4.5); Mean Corpuscular Hemoglobin 30.1 pg (27.0-31.2); Mean Corpuscular Volume 91.3 fl (81-99); Mean Platelet Volume 7.9 fl (7.4-10.4); Monocytes # 0.7 K/mm3 (0.1-1.0); Neutrophils # 13.4 K/mm3 (1.8-7.8); Neutrophils % 81.7 % (37.0-80.0); Platelet Count 311 K/mm3 (142-424); Red Blood Count 4.81 M/mm3 (4.20-5.40); Red Cell Distribution Width 13.7 % (11.5-17.5); White Blood Count 16.4 K/mm3 (4.8-10.8)
[2023-04-21 22:52] LABS: MANUAL DIFFERENTIAL MANUAL DIFFERENTIAL (MANUAL DIFF)
[2023-04-21 22:55] LABS: Alanine Aminotransferase 20 U/L (12-78); Albumin Level 4.6 g/dl (3.5-5.0); Albumin/Globulin Ratio 1.4 (1.1-1.8); Alkaline Phosphatase 107 U/L (38-126); Amylase 66 U/L (30-110); Anion Gap 13.7 mEq/L (5-15); Aspartate Amino Transferase 33 U/L (14-36); Bilirubin,Total 1.1 mg/dl (0.2-1.3); Blood Urea Nitrogen 10 mg/dl (7-17); Calcium 9.3 mg/dl (8.4-10.2); Carbon Dioxide 27 mmol/L (22.0-30.0); Chloride 102 mmol/L (98-107); Creatinine Clearance Estimated 108 mL/min (50-200); Estimated Glomerular Filt Rate 77 ml/min (>60); GFR (African American) 93 ML/MIN (>60); Globulin 3.2 g/dL (1.3-3.2); Glucose 116 mg/dl (74-100); Lipase 95 U/L (23-300); Potassium 3.7 mmoL/L (3.5-5.1); Sodium 139 mmol/L (136-145); Total Protein,Serum 7.8 g/dl (6.3-8.2)
[2023-04-21 23:01] LABS: C-Reactive Protein 3.1 mg/L (0-4)
[2023-04-21 23:06] LABS: Lymphocytes % 11 % (10-50); Monocytes % 5 % (2-9); Neutrophils % 84 % (42-76); Platelet Estimate Normal; RBC Morphology Normal; Total Cells Counted 100
[2023-04-21 23:13] LABS: Erythrocyte Sedimentation Rate 16 mm/hr (0-20)
[2023-04-21 23:24] LABS: Procalcitonin < 0.030 ng/mL (0.0-2.0)
[2023-04-21 23:31] VITALS: BP 174/83; PULSE 70; RESP 18; O2SAT 95
--- NOTE | 2023-04-21 23:49 | PC.NURSE ---
PATIENT ASSISTED TO RESTROOM
[2023-04-21 23:58] LABS: Microscopic, Urine URINE MICROSCOPIC (MICROSCOPIC)
[2023-04-22 00:14] LABS: Appearance,Urine CLEAR (Clear); Bilirubin,Urine Negative (Negative); Blood, Urine Negative (Negative); Color,Urine YELLOW (Yellow); Glucose,Urine (UA) Negative (Negative); Ketones,Urine Negative (Negative); Leukocyte Esterase,Urine Negative (Negative); Nitrate,Urine Negative (Negative); PH,Urine 5.5 (5.0-8.5); Protein,Urine Negative (Negative); Urobilinogen,Urine 0.2 EU/dl (0.2)
--- NOTE | 2023-04-22 00:16 | HMH.EDABDPAI ---
Discharge Plan Disposition Patient Disposition: Home, Self-Care Prescriptions Prescriptions: New tamsulosin [Flomax] 0.4 mg capsule 0.4 mg PO DAILY Qty: 10 0RF No Action Trulance 3 mg tablet 3 mg PO DAILY gabapentin 600 mg tablet 600 mg PO TID Qty: 90 2RF lisinopril 5 mg tablet See Rx Instructions .ROUTE .COMPLEX Qty: 90 5RF Dose Instruction: TAKE ONE TABLET BY MOUTH EVERY DAY Rx Instructions: TAKE ONE TABLET BY MOUTH EVERY DAY loratadine 10 mg tablet See Rx Instructions .ROUTE .COMPLEX Qty: 90 3RF Dose Instruction: TAKE ONE TABLET BY MOUTH EVERY DAY Rx Instructions: TAKE ONE TABLET BY MOUTH EVERY DAY bisoprolol fumarate 5 mg tablet See Rx Instructions .ROUTE .COMPLEX Qty: 90 3RF Dose Instruction: TAKE ONE TABLET BY MOUTH EVERY DAY Rx Instructions: TAKE ONE TABLET BY MOUTH EVERY DAY hydroxyzine pamoate 25 mg capsule See Rx Instructions .ROUTE .COMPLEX Qty: 30 5RF Dose Instruction: TAKE ONE CAPSULE BY MOUTH EVERY DAY AT BEDTIME NEEDED FOR insomnia Rx Instructions: TAKE ONE CAPSULE BY MOUTH EVERY DAY AT BEDTIME NEEDED FOR insomnia levothyroxine 25 mcg tablet See Rx Instructions .ROUTE .COMPLEX Qty: 30 5RF Dose Instruction: TAKE ONE TABLET BY MOUTH EVERY DAY Rx Instructions: TAKE ONE TABLET BY MOUTH EVERY DAY bupropion HCl 75 mg tablet See Rx Instructions .ROUTE .COMPLEX Qty: 30 5RF Dose Instruction: TAKE ONE TABLET BY MOUTH EVERY DAY Rx Instructions: TAKE ONE TABLET BY MOUTH EVERY DAY meloxicam 7.5 mg tablet See Rx Instructions .ROUTE .COMPLEX Qty: 90 1RF Dose Instruction: TAKE ONE TABLET BY MOUTH EVERY DAY --TAKE WITH FOOD-- Rx Instructions: TAKE ONE TABLET BY MOUTH EVERY DAY --TAKE WITH FOOD-- Referrals Follow up/Referrals: See Henriquez MD [Primary Care Provider] - See instructions Clinical Impressions Clinical Impression: Renal colic on left side Instructions Patient Instructions: DI for Kidney Stones Discharge ED Provider: Florence (ED)See Abdominal Pain HPI General Chief Complaint: Abdominal Pain Stated Complaint: kidney stones Time Seen by Provider: 04/22/23 00:16 Mode of Arrival: Family Vehicle Source of Information: Patient and Medical Record Limitations: No Limitations Description of Symptoms (Recalled from ER Triage Doc. by RN): 47 yo female presents with CC of left side flank pain, left abd pain. States she went to void earlier and felt a sudden increase in pain in her flank, and was unable to repeat void despite feeling urgency. afebrile. denies vomiting. denies diarrhea. history of renal calculi but states its been awhile . History of Present Illness HPI narrative: acute onset of lt flank pain- hx of kidney stone - no trauma /fever or rash complaint: flank pain Onset (ago): day(s) Consistency: intermittent Location: L flank Severity: moderate Quality: sharp Associated symptoms: denies other symptoms Related Data Home Medications Medication Instructions Recorded Confirmed plecanatide 3 mg tablet (Trulance) 3 mg PO DAILY 09/25/22 03/20/23 Previous Rx's Medication Instructions Recorded lisinopril 5 mg tablet See Rx Instructions .Route 03/26/22 .COMPLEX #90 tabs bisoprolol fumarate 5 mg tablet See Rx Instructions .Route 09/28/22 .COMPLEX #90 tabs loratadine 10 mg tablet See Rx Instructions .Route 09/28/22 .COMPLEX #90 tabs bupropion HCl 75 mg tablet See Rx Instructions .Route 11/28/22 .COMPLEX #30 tabs hydroxyzine pamoate 25 mg capsule See Rx Instructions .Route 11/28/22 .COMPLEX #30 caps levothyroxine 25 mcg tablet See Rx Instructions .Route 11/28/22 .COMPLEX #30 tabs meloxicam 7.5 mg tablet See Rx Instructions .Route 02/20/23 .COMPLEX #90 tabs gabapentin 600 mg tablet 600 mg PO TID Pain #90 tabs 03/20/23 tamsulosin 0.4 mg capsule (Flomax) 0.4 mg PO DAILY #10 caps 04/22/23 Allergies Aller
[2023-04-22 00:20] LABS: Bacteria,Urine 2+ /lpf; RBC,Urine Occasional #/hpf (0-3)
[2023-04-22 00:44] VITALS: BP 125/78; PULSE 80; RESP 17; TEMP 36.8; O2SAT 97
== END 2023-04-22 00:51 | disposition home or self-care (01) ==
PROVIDERS: Emergency Provider Emergency Medicine; PCP Emergency Medicine
DX: N23 Unspecified renal colic (principal); F17.210 Nicotine dependence, cigarettes, uncomplicated
CPT/HCPCS: 74176; 80053; 81001; 82150; 83690; 84145; 85007; 85025; 85651; 86140; 87086; 87088; 87186; 96361; 96374; 96375; 96376; 99285; J2405

== ENCOUNTER → 2023-06-10 07:26 | Outpatient (CLI) | payer OTHER, SELFPAY ==
--- NOTE | 2023-06-10 07:26 | US_ITS ---
FINAL REPORT CLINICAL HISTORY: Lt breast mass 3:00 Dr. Jeremy Montiel FINDINGS: ULTRASOUND-GUIDED LEFT BREAST CORE BIOPSY TECHNIQUE: Limited images were obtained to localize region of interest. The left was prepped in a routine sterile fashion and locally anesthetized with 1% lidocaine. Standard written informed consent was obtained. An 11-gauge vacuum assisted hand-held device was utilized. The needle was positioned posterior to the lesion. Multiple vacuum assisted core samples were obtained. The lesion was noted to be significantly smaller following biopsy. A biopsy marker clip was deployed in satisfactory position. Postbiopsy mammogram showed postbiopsy changes with clip in satisfactory position. Procedure was well tolerated . CONCLUSION: 1. Technically successful ultrasound guided core vacuum assisted biopsy of left breast lesion as above. 2. Biopsy marker clip deployed Histopathology results reveal proliferative fibrocystic changes without atypical hyperplasia or carcinoma. Pathology is concordant with mammographic findings. Recommend 6 month sonographic and mammographic follow-up as routine benign postbiopsy surveillance. Authenticated and ERN
--- NOTE | 2023-06-10 07:31 | MM_ITS ---
FINAL REPORT CLINICAL HISTORY: .clip placement, s/p ultrasound bx FINDINGS: MAMMOGRAM LEFT TECHNIQUE: Standard digital 2-D views COMPARISON: 03-27-23 and 04-17-23 DENSITY: There are scattered areas of fibroglandular density FINDINGS: Post biopsy marker clip is noted to be in satisfactory position. Biopsy marker clip is noted at 10:00. There is no associated lesion evident mammographically. Postbiopsy changes are noted. IMPRESSION: Biopsy marker clip in good position RECOMMENDATION: Histopathology shows fibrocystic changes. This is concordant with imaging findings. Recommend 6 month mammographic and sonographic follow-up as part of normal post benign biopsy follow-up. Authenticated and ERN
== END ==
PROVIDERS: PCP Emergency Medicine; Visit Provider Surgery
DX: N63.21 Unspecified lump in the left breast, upper outer quadrant (principal)
CPT/HCPCS: 19083; 77065; C2618

== ENCOUNTER → 2023-09-17 13:18 | Outpatient (CLI) | payer OTHER, SELFPAY ==
[2023-09-17 12:50] LABS: Amphetamine/Metha Screen,Urine Negative ng/ml (<1000)
[2023-09-17 12:51] LABS: Barbiturates Screen,Urine Negative ng/ml (<200); Cannabinoid Screen,Urine Positive ng/ml (<50)
[2023-09-17 12:52] LABS: Benzodiazepines Screen,Urine Positive ng/ml (<200)
[2023-09-17 12:57] LABS: Cocaine Screen,Urine Negative ng/ml (<300); Methadone Screen,Urine Negative ng/ml (<300)
[2023-09-17 12:58] LABS: Phencyclidine Screen,Urine Negative ng/ml (<25)
[2023-09-17 12:59] LABS: Opiate Screen,Urine Negative ng/ml (<300)
== END ==
PROVIDERS: PCP Emergency Medicine; Visit Provider Emergency Medicine
DX: Z79.899 Other long term (current) drug therapy (principal)
CPT/HCPCS: 80305

== ENCOUNTER → 2023-10-08 07:45 | Outpatient (CLI) | payer OTHER, SELFPAY ==
--- NOTE | 2023-10-08 07:45 | CA_ITS ---
FINAL REPORT CLINICAL HISTORY: hx-renal vein thrombosis, smoker, multiple kidney stones COMPARISON: None FINDINGS: Aorta velocity: 100 cm/sec Right kidney: 10 cm. No evidence of hydronephrosis or mass. Right intrarenal RI: 0.67 Right renal artery velocity: 143 cm/sec. Right RAR (Renal artery-Aortic Ratio): 1.4 Left Kidney: 9.6 cm. 0.7 Left intrarenal RI: 0.66 Left renal artery velocity: 172 cm/sec. Left RAR (Renal Artery-Aortic Ratio): 1.7 IMPRESSION: No evidence of significant renal artery stenosis. CT angiogram or postcontrast MR angiogram would be more sensitive for evaluation of possible renal artery stenosis. Reviewed, Interpreted and Dictated by Myah Bowser MD Transcribed by Elva Nayak Authenticated and [facility]
== END ==
PROVIDERS: PCP Emergency Medicine; Visit Provider Emergency Medicine
DX: I82.3 Embolism and thrombosis of renal vein (principal)
CPT/HCPCS: 93976

== ENCOUNTER 2023-12-09 15:52 | Outpatient (CLI) | payer OTHER, SELFPAY ==
[2023-12-09 16:24] LABS: Amphetamine/Metha Screen,Urine Negative ng/ml (<1000); Barbiturates Screen,Urine Negative ng/ml (<200); Benzodiazepines Screen,Urine Negative ng/ml (<200); Cannabinoid Screen,Urine Positive ng/ml (<50); Cocaine Screen,Urine Negative ng/ml (<300); Methadone Screen,Urine Negative ng/ml (<300); Opiate Screen,Urine Negative ng/ml (<300); Phencyclidine Screen,Urine Negative ng/ml (<25)
== END 2023-12-09 23:59 ==
LOC: LAB.DROPOF 15:53
PROVIDERS: PCP Family Medicine; Visit Provider Family Medicine
DX: Z79.899 Other long term (current) drug therapy (principal)
CPT/HCPCS: 80307

== ENCOUNTER 2024-01-22 13:18 | Outpatient (CLI) | payer OTHER, SELFPAY ==
--- NOTE | 2024-01-22 13:18 | MM_ITS ---
PROCEDURE INFORMATION: Exam: MG Left Diagnostic Breast Tomosynthesis Exam date and time: 01/22/2024 1:11 PM Age: 48 years old Clinical indication: Post-biopsy clip assessment; Additional info: 6 month f/u TECHNIQUE: Imaging protocol: Left Diagnostic tomosynthesis and 2D mammography including computer-aided detection (CAD) when performed. Unilateral or bilateral exam. COMPARISON: 1. MG MM CLIP PLACEMENT LT 06/10/2023 8:19 AM 2. MG MM DIG MAMM DX UNILAT LT CAD 04/17/2023 1:44 PM FINDINGS: MAMMOGRAPHY: The breast tissue is composed of scattered areas of fibroglandular density. There is no stellate mass, architectural distortion or suspicious microcalcifications to suggest malignancy. A clip is noted in the anterior left upper outer quadrant. No skin thickening or axillary adenopathy. IMPRESSION: No mammographic evidence of malignancy. Annual bilateral mammographic screening is recommended in April 2024 unless otherwise clinically indicated. ASSESSMENT: BI-RADS Category 1: Negative
== END 2024-01-22 23:59 ==
LOC: RAD 13:18
PROVIDERS: PCP Family Medicine; Visit Provider Family Medicine
DX: R92.8 Other abnormal and inconclusive findings on diagnostic imaging of breast (principal); Z80.3 Family history of malignant neoplasm of breast
CPT/HCPCS: 77061; 77065; G0279

== ENCOUNTER 2024-04-03 10:38 | Outpatient (CLI) | payer OTHER, SELFPAY ==
[2024-04-03 18:47] LABS: Basophils # 0.1 K/mm3 (0-0.2); Basophils % 0.9 % (0.1-2.0); Eosinophils # 0.2 K/mm3 (0.0-0.4); Eosinophils % 2.8 % (0.1-12.0); Hematocrit 43.9 % (37.0-47.0); Hemoglobin 14.4 g/dL (12.2-16.2); Lymphocytes # 3.4 K/mm3 (0.7-4.5); Lymphocytes % 46.8 % (10-50); Mean Corpuscular HGB Conc 32.8 g/dL (31.8-35.4); Mean Corpuscular Hemoglobin 30.2 pg (27.0-31.2); Mean Corpuscular Volume 92.1 fl (81-99); Mean Platelet Volume 9.4 fl (7.4-10.4); Monocytes # 0.5 K/mm3 (0.1-1.0); Monocytes % 6.4 % (1.7-9.3); Neutrophils # 3.1 K/mm3 (1.8-7.8); Platelet Count 327 K/mm3 (142-424); Red Blood Count 4.77 M/mm3 (4.20-5.40); White Blood Count 7.3 K/mm3 (4.8-10.8)
[2024-04-03 18:48] LABS: Alanine Aminotransferase 20 U/L (12-78); Albumin Level 4.5 g/dl (3.5-5.0); Albumin/Globulin Ratio 1.7 (1.1-1.8); Alkaline Phosphatase 98 U/L (38-126); Anion Gap 5.5 mEq/L (5-15); Aspartate Amino Transferase 31 U/L (14-36); Blood Urea Nitrogen 21 mg/dl (7-17); Calcium 10.1 mg/dl (8.4-10.2); Carbon Dioxide 33 mmol/L (22.0-30.0); Chloride 100 mmol/L (98-107); Chol/HDL Ratio 3.5 (1-3.5); Cholesterol 223 mg/dl (140-200); Estimated Glomerular Filt Rate 48 ml/min (>60); GFR (African American) 58 ML/MIN (>60); Globulin 2.7 g/dL (1.3-3.2); Glucose 103 mg/dl (74-100); HDL Cholesterol 64 mg/dl (40-60); Potassium 3.5 mmoL/L (3.5-5.1); Sodium 135 mmol/L (136-145); Total Protein,Serum 7.2 g/dl (6.3-8.2); Triglycerides 142 mg/dl (30-150); VLDL Cholesterol 28 mg/dL (0-40)
[2024-04-03 18:59] LABS: Direct LDL Cholesterol 125.51 mg/dL (100-129)
[2024-04-03 19:03] LABS: 25-OH Vitamin D, Total 43.9 ng/mL (30-100)
[2024-04-03 19:17] LABS: Thyroid Stimulating Hormone 3.25 uIU/mL (0.465-4.68)
[2024-04-03 19:21] LABS: Hemoglobin A1C 5.4 % (4.0-6.0)
== END 2024-04-03 23:59 | disposition home or self-care (01) ==
LOC: LAB.DROPOF 10:38
PROVIDERS: PCP Family Medicine; Visit Provider Family Medicine
DX: R55 Syncope and collapse (principal); R00.0 Tachycardia, unspecified; R00.2 Palpitations; I20.89 Other forms of angina pectoris; I95.9 Hypotension, unspecified; R06.09 Other forms of dyspnea; F17.210 Nicotine dependence, cigarettes, uncomplicated; Z79.899 Other long term (current) drug therapy
CPT/HCPCS: 80053; 80061; 82306; 83036; 84443; 85025; 93270

== ENCOUNTER 2024-04-10 07:14 | Outpatient (CLI) | payer OTHER, SELFPAY ==
--- NOTE | 2024-04-10 | CA_ITS ---
APPROVED REPORT Exam: Pharmacologic Technologist: Berta Pozo, Ht: 5 ft 6 in Wt: 142 lbs BSA: 1.73 m2 HR: 61 bpm BP: 125/72 mmHg Rhythm: NSR Medical History Medical History: Smoking Medications: Levothyroxine,,,,, Trazadone,,,,, MeLOXICAM,,,,, LoraTADINE,,,,, BisOPROLOL Fumarate,,,,, TrULANCE,,,,, BuPRenorphinE,,,,, Lisinopril HCTZ,,,,, NaloXone,,,,, Allergies: LATEX, CODEINE Cardiac Risk Factors: FHX of CAD, Smoking Stress Test Details Test: LEXISCAN Reversal agent Aminophyline 100.0 mg, given intravenously for nausea. HR Resting HR: 63 bpm Max Heart Rate (APMHR): 171 bpm Max HR Achieved: 99 bpm Target HR (85% APMHR): 145 bpm % of APMHR: 58 Recovery HR: 66 bpm BP Resting BP: 125/72 mmHg Max BP: 134/74 mmHg Recovery BP: 122.0/68.0 mmHg ECG Resting ECG: NSR ST Change: No significant ST changes Arrhythmia: None Clinical Exercise duration: 04:00 min Highest Stage Achieved: Stress ECG Conclusion PT HAD SOA, HEAD DISCOMFORT AND NAUSEA VASODILATION: 1 MINUTE: SOA 2 MINUTE: DIZZY, NAUSEA 3 MINUTE: NAUSEA, CRAMPING 4 MINUTE: SYMPTOMS CONTINUED RECOVERY: 1 MINUTE: SYMPTOMS CONTINUED 2 MIINTE: AMINOPHYLLINE 100MG SLOW IV GIVEN 3 MINUTE: STARTING TO FEEL BETTER 7 MINUTE: NAUSEA ALMOST GONE PT HAD NO CP NON-SPECIFIC T WAVE CHANGES UNREMARKABLE LEXISCAN STRESS MYOVIEW IMAGES REPORTED SEPARATELY Test Summary REST 02:35 . . 63 . 125/ 72 . . Stage 1 01:00 . . 84 . . . . Stage 2 01:00 . . 98 . 115/ 74 . . Stage 3 01:00 . . 93 . 129/ 74 . . Stage 4 01:00 . . 93 . 129/ 75 . Stop exercise at 04:00 RECOVERY 01:00 . . 89 . . . . RECOVERY 02:00 . . 84 . 134/ 74 . . RECOVERY 03:00 . . 79 . 134/ 74 . . RECOVERY 04:00 . . 81 . 128/ 81 . . RECOVERY 05:00 . . 76 . 128/ 81 . . RECOVERY 06:00 . . 74 . 128/ 81 . . RECOVERY 07:00 . . 72 . 128/ 81 . . RECOVERY 08:00 . . 72 . 112/ 68 . . RECOVERY 09:00 . . 64 . 122/ 68 . . RECOVERY 09:19 . . 66 . 122/ 68 . . Electronically signed by : Inna Geiger MD 04/13/2024 12:59:39
--- NOTE | 2024-04-10 07:21 | NM_ITS ---
APPROVED REPORT Exam: Nuclear Stress Test Indication: HTN, TOB USE, FM HX, SOB, PALPITATIONS, SYNCOPE, FATIGUE Patient Location: Outpatient Stress Tech: Berta Pozo OR Tech:Chaya MccallKRISHNA RT (R)(N)(M) Ht: 5 ft 3 in Wt: 144 lbs Bra Size: 36B HR: 61 bpm BP: 125/72 mmHg BSA: 1.68 m2 TID: 1.26 BMI: 25.5 History: HTN, TOB USE, FM HX, SOB, PALPITATIONS, SYNCOPE, FATIGUE Procedure: Patient received 0.4 mg of intravenous Lexiscan, resting heart rate 61 bpm, resting blood pressure 125/72 mmHg, with Lexiscan maximum heart rate achieved was 98 bpm which is % of the maximum predicted heart rate and blood pressure was 115/74 mmHg. With Lexiscan, patient denied any complaint of chest pain. Cardiac Stress and Resting SPECT Images: Cardiac Stress and Resting SPECT images were obtained using technetium 99m Myoview 31.2 mCi stress and 10.89 mCi at rest. Resting and stress imaging in supine and prone positions demonstrates no evidence of fixed or reversible perfusion defects. There is increased transient ischemic dilatation ratio (TID 1.26), suggestive of possible multivessel disease or balanced ischemia. Gated imaging demonstrates low normal global LV systolic function. LVEF is calculated at 52%. Conclusion: No evidence of fixed or reversible perfusion defects. There is increased transient ischemic dilatation ratio (TID 1.26), suggestive of possible multivessel disease or balanced ischemia. Gated imaging demonstrates low normal global LV systolic function. LVEF is calculated at 52%. Electronically signed by : Inna Geiger MD 04/13/2024 13:00:42
[2024-04-10] MEDS: SODIUM CHLORIDE 0.9% 10ML SYR (RAD ONLY) 10 ML IV ×2 (07:25→09:00)
[2024-04-10] MEDS: REGADENOSON 0.4MG/5ML SYRINGE 0.400000000000000022 MG IV (09:00)
[2024-04-10] MEDS: ISOTOPE MYOVIEW (PER STUDY) 1 DOSE IV (10:16)
[2024-04-10 11:05] LABS: Alanine Aminotransferase 17 U/L (12-78); Albumin Level 4.3 g/dl (3.5-5.0); Albumin/Globulin Ratio 1.5 (1.1-1.8); Alkaline Phosphatase 68 U/L (38-126); Aspartate Amino Transferase 30 U/L (14-36); Bilirubin,Total 0.6 mg/dl (0.2-1.3); Calcium 9.9 mg/dl (8.4-10.2); Chloride 99 mmol/L (98-107); Globulin 2.9 g/dL (1.3-3.2); Glucose 103 mg/dl (74-100); Potassium 4.1 mmoL/L (3.5-5.1); Sodium 136 mmol/L (136-145); Total Protein,Serum 7.2 g/dl (6.3-8.2)
[2024-04-10 11:06] LABS: Anion Gap 8.1 mEq/L (5-15); Blood Urea Nitrogen 16 mg/dl (7-17); Carbon Dioxide 33 mmol/L (22.0-30.0); Estimated Glomerular Filt Rate 67 ml/min (>60); GFR (African American) 81 ML/MIN (>60)
== END 2024-04-10 23:59 | disposition home or self-care (01) ==
PROVIDERS: PCP Family Medicine; Visit Provider Family Medicine
DX: R06.09 Other forms of dyspnea (principal); I20.89 Other forms of angina pectoris; R00.2 Palpitations; R00.0 Tachycardia, unspecified; R55 Syncope and collapse; R89.9 Unspecified abnormal finding in specimens from other organs, systems and tissues; Z82.49 Family history of ischemic heart disease and other diseases of the circulatory system; F17.200 Nicotine dependence, unspecified, uncomplicated
CPT/HCPCS: 36415; 78452; 80053; 93017; 93018; A9502; J0280; J2785

== ENCOUNTER 2024-04-17 08:30 | Outpatient (CLI) | payer OTHER, SELFPAY ==
--- NOTE | 2024-04-17 08:33 | CA_ITS ---
APPROVED REPORT EXAM: Comprehensive 2D, Doppler, and color-flow Echocardiogram Assembler [employer]: María Elena Mullins RDCS Ht: 5 ft 6 in Wt: 142lbs BSA: 1.73 BP: 120/74 mmHg Indications: CP,PALPS,SYNCOPE,SVT M-Mode Dimensions RVDd 2.28 cm (0.9-2.6) LA Diam 3.39 cm (1.9-4.0) LVDd 4.41 cm (3.5-5.7) LVDs 2.93 cm (3.5-5.7) IVSd 0.80 cm (0.6-1.1) PWd 0.84 cm (0.6-1.1) EF (Teich) 62.60% FS 33.60% EDV (Teich) 88.20 mL ESV (Teich) 33.00 mL LV Diastology E Decel Time 237 (160-240 msec) E/A Ratio 0.9 Mitral Valve MV E Max Sergio. 68.0 (40-130 cm/s) MV A Velocity 74.0 (40-130 cm/s) E/A Ratio 0.92 MV PHT 69.0 ms Left Ventricle The left ventricle is normal size. The left ventricular systolic function is normal. The left ventricular ejection fraction is within the normal range. There is normal left ventricular wall thickness. There is normal LV segmental wall motion. The left ventricular diastolic function is normal. LVEF is 55%. Right Ventricle Right ventricle is mildly dilated. The right ventricular systolic function is normal. Atria The left atrium size is normal. The right atrium size is normal. The interatrial septum is not well-visualized. Aortic Valve The aortic valve opens well. There is no aortic valvular stenosis. Trace aortic regurgitation. Mitral Valve The mitral valve is normal in structure. No evidence of mitral valve stenosis. There is no mitral valve regurgitation noted. Tricuspid Valve The tricuspid valve leaflets are thin and pliable. Trace tricuspid regurgitation. There is insufficient data to estimate RVSP. Pulmonic Valve The pulmonary valve is normal in structure. Mild pulmonic regurgitation. Great Vessels The aortic root is normal in size. The ascending aorta is normal in size. The IVC is not well-visualized. Pericardium There is no pericardial effusion. Other Information Study Quality: Fair Conclusion Normal biventricular systolic function. Mild RV dilation. Mild PI. Electronically signed by : Inna Geiger MD 04/19/2024 22:05:04
== END 2024-04-17 23:59 | disposition home or self-care (01) ==
LOC: RT 08:31
PROVIDERS: PCP Family Medicine; Visit Provider Family Medicine
DX: I20.9 Angina pectoris, unspecified (principal); R00.2 Palpitations; R00.0 Tachycardia, unspecified; R55 Syncope and collapse; F17.210 Nicotine dependence, cigarettes, uncomplicated
CPT/HCPCS: 93306

== ENCOUNTER 2024-05-08 07:28 | Outpatient (CLI) | payer OTHER, SELFPAY ==
--- NOTE | 2024-05-08 07:28 | CT_ITS ---
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 A noncontrast coronary calcium scan was performed. A CT attenuation threshold of 130 Hounsfield units (HU) was used for the detection of calcium in contiguous voxels of 1 sq mm in area to be counted as individual lesions. Bolus tracking in the ascending aorta with a threshold of 180 HU was performed. Immediately afterwards, ECG synchronized cardiac CT was then performed from the cardiac base to apex using retrospective gating with ECG tube current modulation. A total of 85 mL of Isovue 370 mg/mL contrast medium was administered at 5 mL/sec followed by a saline flush using a biphasic injection protocol. A tube voltage of 120 KVp was used. The patient received the following medications prior to the cardiac CT. 0.8 mg of sublingual nitroglycerin The average heart rate at the time of acquisition was 61 bpm and regular. Image Reconstruction Transaxial images were reconstructed at 0.67 mm slide thickness. Data was reviewed interactively on an advanced workstation capable of 2 and 3-dimensional displays in all conventional reconstruction formats, including multiplanar reformations, maximum intensity projections, curved multiplanar reformations, and volume rendered reconstructions. When applicable, selected routine images describing the relevant coronary anatomy and pathology were saved and sent to PACS. Complications None Technical Quality Overall image quality was good. Coronary artery opacification was adequate. Total DLP (Dose-Length Product) is 1152.1 mGy-cm. The reported value represents the total of one or more individual components during the CT acquisition of this date and at this time, and as such, the same value may appear in more than one CT report depending on the interpreting/reporting physicians. COMPARISON None FINDINGS CT Coronary Calcium Scoring LMA (Left Main Artery) = 90 LAD (Left Anterior Descending) = 0 LCX (Left Coronary Circumflex) = 0 RCA (Right Coronary Artery) = 0 Total Calcium Score = 90 using the AJ-130 method. The interpretation of the calcium heart score is based on the following continuum*: 0 = no calcified plaque detected (risk of coronary artery disease is very low ??? less than 5%) 1-10 = calcium detected in extremely minimal levels (risk of coronary diseases is still low ??? less than 10%) 11-100 = mild levels of plaque detected with certainty (mild or minimal narrowing of heart arteries is likely) 101-400 = definite,at least moderate levels of plaque detected (relatively high risk of a heart attack within 3-5 years) >401-999 = extensive levels of plaque detected (high risk of heart attack, high levels of vascular disease are present, high likelihood of at least one significant coronary narrowing) *The calcium heart score quantifies the burden of coronary calcification/plaque in the coronary arteries. The calcium heart score is not able to evaluate the presence or burden of non-calcified (i.e. soft) plaque. There is no identifiable calcification in the aortic valve, mitral annulus or mitral valve, pericardium, or myocardium. Coronary CT Angiography The coronary arterial system is right dominant. Quantitative Stenosis Grading: Left Main (LM): The left main originates normally from the left sinus of Valsalva. The LM bifurcates into the left anterior descending artery and left circumflex artery.There is focal, mixed calcified/non-calcified plaque in the distal LM segment and involving the proximal LAD, with up to 50% luminal stenosis. Left Anterior Descending (LAD) and Diagonal Branches: The LAD gives off 2 diagonal branch(es). The LAD and its branches are patent with no evidence of atherosclerosis. There is no evidence of LAD-myocardial bridge. Left Circumflex (LCX) and Obtuse Marginals (OM): The LCX gives off 1 Obtuse Marginal (OM) branch(es). The LCX and its branches are patent with no evidence of atherosclerosis. Right Coronary Artery (RCA): The RCA originates normally from the right sinus of Valsalva. The RCA gives off a posterior descending artery (PDA) and posterolateral (PL) branches. The RCA and its branches are patent with no evidence of atherosclerosis. Non-Coronary Cardiac Findings: Analysis of the left ventricular (LV) structure and function was performed after 3-D reconstruction of the LV from axial images, with user-corrected automatic contouring for assessment of LV volumes and user-defined reconstruction from oblique planes for measurement of 3-D cardiac structure and function. -The left ventricle systolic function is normal. -There is no left atrial appendage filling defect. Two right pulmonary veins and two left pulmonary veins drain normally into the left atrium. -No pericardial thickening or calcification. -Central and branch pulmonary arteries in the [id number] are unremarkable. -Thoracic aorta within the visualized thoracic aortic-branches in the [id number] is unremarkable. Extracardiac Structures No significant extra-cardiac findings. Note, however, that this study is focused on the cardiac findings. IMPRESSION -Presence of coronary calcification with an Agatston score = 90 using the AJ-130 method. -The observed calcium score of 90 is at 98th for subjects of the same age, sex, and race/ethnicity. -Possible evidence of significant flow-limiting atherosclerosis of the distal LM, with up to 50% luminal stenosis. -CAD-RADS 4B. Management recommendations per ACC/AHA guidelines*, as clinically appropriate. *Recommendations: CAD RADS 0: Reassurance. Consider non-atherosclerotic causes of chest pain. CAD RADS 1: Consider non-atherosclerotic causes of chest pain. Consider preventive therapy and risk factor modification. CAD RADS 2: Consider non-atherosclerotic causes of chest pain. Consider preventive therapy and risk factor modification, particularly for patients with nonobstructive plaque in multiple segments. CAD RADS 3: Consider further functional testing. Consider symptom-guided anti-ischemic and preventive pharmacotherapy as well as risk factor modification per published guideline statements. CAD RADS 4A: Consider further functional testing or invasive coronary angiography with revascularization per published guideline statements. Consider symptom-guided anti-ischemic and preventive pharmacotherapy as well as risk factor modification per published guideline statements. CAD RADS 4B: Invasive coronary angiography recommended with revascularization per published guideline statements. Consider symptom-guided anti-ischemic and preventive pharmacotherapy as well as risk factor modification per published guideline statements. CAD RADS 5: Consider invasive angiography and/or viability assessment with revascularization per published guideline statements. Consider symptom-guided anti-ischemic and preventive pharmacotherapy as well as risk factor modification per published guideline statements. CRITICAL RESULT None COMMUNICATION Per this written report The coronary and cardiac findings of this CCTA were reviewed, reported, and signed by Abel Geiger MD (Unit Clerk) Conclusion Electronically signed by : Inna Geiger MD 05/12/2024 00:21:17
[2024-05-08 07:42] VITALS: BMI 25.7
[2024-05-08 07:48] VITALS: BP 141/77; PULSE 60; RESP 18; TEMP 36.3; O2SAT 100
[2024-05-08 08:00] VITALS: BP 165/77; PULSE 60; RESP 18; O2SAT 100
[2024-05-08] MEDS: NITROGLYCERIN 0.4MG SL TABLET 0.8 MG SL (08:00)
[2024-05-08 08:05] VITALS: BP 168/86; PULSE 60; RESP 18; O2SAT 99
[2024-05-08 08:10] VITALS: BP 121/64; PULSE 70; RESP 20; O2SAT 95
[2024-05-08 08:14] VITALS: BP 107/72; PULSE 64; RESP 20; O2SAT 97
[2024-05-08] MEDS: SODIUM CHLORIDE 0.9% 10ML SYR (RAD ONLY) 10 ML IV (08:15)
[2024-05-08] MEDS: IOPAMIDOL-370 (76%);100ML BOTTLE 85 ML IV (08:15)
[2024-05-08] MEDS: 0.9 % SODIUM CHLORIDE 50 ML VIAL IV (08:15)
== END 2024-05-08 08:14 | disposition home or self-care (01) ==
PROVIDERS: PCP Family Medicine; Visit Provider Nurse Practitioner Family
DX: R93.1 Abnormal findings on diagnostic imaging of heart and coronary circulation (principal); R07.9 Chest pain, unspecified; Z82.49 Family history of ischemic heart disease and other diseases of the circulatory system; I10 Essential (primary) hypertension; F17.210 Nicotine dependence, cigarettes, uncomplicated
CPT/HCPCS: 75574; Q9967

== ENCOUNTER 2024-05-19 08:29 | Day surgery (SDC) | payer OTHER, SELFPAY ==
[2024-05-19] VITALS (11 sets, daily range): BP systolic 120–194; BP diastolic 67–97; PULSE 55–67; RESP 16–18; TEMP 36.6; O2SAT 92–100; BMI 23.8
--- NOTE | 2024-05-19 07:21 | IR_ITS ---
APPROVED REPORT Patient Location: Outpatient PROCEDURES Left heart catheterization Left ventriculogram Selective coronary angiogram INDICATION Abnormal Myoview, Abnormal CCTA, Angina pectoris Informed consent was obtained prior to the procedure. COMPLICATIONS None Estimated Blood Loss: Less than 10 mls TECHNIQUE One percent lidocaine used to anesthetize the right anterior aspect of the wrist. The right radial artery was accessed via the Seldinger technique. A 6 Mongolian sheath was placed in the right radial artery. 2.5 mg of Verapamil, 800 mcg of nitroglycerin, 1mg Lidocaine and 5000 U Heparin were given through the arterial sheath. The papa catheter was also used to perform left heart catheterization, left ventriculogram and selective coronary angiogram. At the end of the procedure the sheath was removed good hemostasis was achieved using Traclet band, patient was transferred to the postop holding area in stable condition. ANGIOGRAPHIC RESULTS The left main artery Normal The left anterior descending artery Normal The circumflex artery Dominant normal The right coronary artery Normal The [place] ventriculogram reveals Normal 65% The left ventricular end-diastolic pressure 20 mmHg IMPRESSION Normal coronary artery Normal ejection fraction Mildly elevated LVEDP PLAN 1. Continue medical management Electronically signed by : Jaswinder Olvera MD 05/19/2024 11:51:48
[2024-05-19 08:54] LABS: Basophils # 0.1 K/mm3 (0-0.2); Basophils % 1.3 % (0.1-2.0); Eosinophils # 0.3 K/mm3 (0.0-0.4); Eosinophils % 3.4 % (0.1-12.0); Hematocrit 40.8 % (37.0-47.0); Hemoglobin 13.7 g/dL (12.2-16.2); Lymphocytes % 34.2 % (10-50); Mean Corpuscular HGB Conc 33.7 g/dL (31.8-35.4); Mean Corpuscular Hemoglobin 30.5 pg (27.0-31.2); Mean Corpuscular Volume 90.6 fl (81-99); Monocytes # 0.6 K/mm3 (0.1-1.0); Monocytes % 7.3 % (1.7-9.3); Neutrophils # 4.7 K/mm3 (1.8-7.8); Neutrophils % 53.8 % (37.0-80.0); Platelet Count 261 K/mm3 (142-424); Red Cell Distribution Width 14.2 % (11.5-17.5); White Blood Count 8.7 K/mm3 (4.8-10.8)
[2024-05-19 08:57] LABS: Chloride 98 mmol/L (98-107); Potassium 3.4 mmoL/L (3.5-5.1); Sodium 136 mmol/L (136-145)
[2024-05-19 09:00] LABS: Anion Gap 8.4 mEq/L (5-15); Blood Urea Nitrogen 16 mg/dl (7-17); Carbon Dioxide 33 mmol/L (22.0-30.0); Creatinine Clearance Estimated 72 mL/min (50-200); Estimated Glomerular Filt Rate 59 ml/min (>60); GFR (African American) 71 ML/MIN (>60)
[2024-05-19 09:01] LABS: Calcium 9.5 mg/dl (8.4-10.2); Glucose 98 mg/dl (74-100)
[2024-05-19] MEDS: diphenhydrAMINE 50MG/ML VIAL 50 MG IV (11:01)
[2024-05-19] MEDS: 0.9 % SODIUM CHLORIDE 500 ML 25 ML IV (11:02)
[2024-05-19] MEDS: HEPARIN 1,000 UNITS/ML 10ML VIAL (CATH LAB) 10000 UNIT IV (11:02)
[2024-05-19] MEDS: HEPARIN 1,000 UNITS/500ML NS (CATH LAB) 3000 UNIT IV (11:02)
[2024-05-19] MEDS: LIDOCAINE 1% 10ML MDV 20 ML IJ (11:03)
[2024-05-19] MEDS: VERAPAMIL 2.5MG/ML 2ML VIAL 2.5 MG IV (11:03)
[2024-05-19] MEDS: NITROGLYCERIN 800MCG/8ML SYR (CATH LAB) 800 MCG IA (11:03)
[2024-05-19] MEDS: FENTANYL 100MCG/2ML VIAL 50 MCG IV (11:47)
[2024-05-19] MEDS: MIDAZOLAM HCL 1MG/1ML 5ML VIAL 1 MG IV (11:47)
[2024-05-19] MEDS: IOPAMIDOL-370 (76%);100ML BOTTLE 50 ML IV (14:33)
== END 2024-05-19 14:09 | disposition home or self-care (01) ==
PROVIDERS: PCP Family Medicine; Visit Provider Internal Medicine
DX: I25.118 Atherosclerotic heart disease of native coronary artery with other forms of angina pectoris (principal); R93.1 Abnormal findings on diagnostic imaging of heart and coronary circulation; R07.89 Other chest pain; Z79.899 Other long term (current) drug therapy; E78.5 Hyperlipidemia, unspecified; I10 Essential (primary) hypertension; Z86.16 Personal history of COVID-19; F17.210 Nicotine dependence, cigarettes, uncomplicated; I49.3 Ventricular premature depolarization; I47.10 Supraventricular tachycardia, unspecified
CPT/HCPCS: 80048; 85025; 93458; 99152; C1725; C1769; J1644; J2250; J3010; Q9967

== ENCOUNTER 2024-07-23 15:11 | Outpatient (CLI) | payer OTHER, SELFPAY ==
--- NOTE | 2024-07-23 15:11 | MM_ITS ---
PROCEDURE INFORMATION: Exam: MG Bilateral Screening 3D Mammography Exam date and time: 07/23/2024 3:14 PM Age: 49 years old Clinical indication: Screening exam TECHNIQUE: Imaging protocol: Bilateral Screening tomosynthesis and 2D mammography including computer-aided detection (CAD) when performed. COMPARISON: 1. MG MM DIG MAMM DX UNILAT LT CAD 01/22/2024 1:11 PM 2. MG MM CLIP PLACEMENT LT 06/10/2023 8:19 AM 3. MG MM DIG SCREENING MAMM BI W/CAD 10/31/2021 3:19 PM 4. MG MM DIG SCREENING MAMM BI W/CAD 03/27/2023 3:29 PM FINDINGS: MAMMOGRAPHY: Breast composition: There are scattered areas of fibroglandular density. Mass: No suspicious masses. Architectural distortion: None. Calcifications: No suspicious calcifications. Asymmetric density: None. Skin thickening: None. Axillary adenopathy: None. IMPRESSION: No mammographic evidence of malignancy. Annual screening is recommended unless otherwise clinically indicated. ASSESSMENT: BI-RADS Category 1: Negative
== END 2024-07-23 23:59 | disposition home or self-care (01) ==
LOC: RAD 15:11
PROVIDERS: PCP Family Medicine; Visit Provider Family Medicine
DX: Z12.31 Encounter for screening mammogram for malignant neoplasm of breast (principal)
CPT/HCPCS: 77063; 77067

== ENCOUNTER 2025-01-19 13:52 | Outpatient (CLI) | payer OTHER, SELFPAY ==
--- NOTE | 2025-01-19 13:54 | XR_ITS ---
FINAL REPORT CLINICAL HISTORY: neck pain COMPARISON: None FINDINGS: AP, lateral and odontoid views of the cervical spine were obtained. There is no prior exam for comparison. There is no acute fracture or malalignment. Vertebral body height is preserved. There is degenerative disc disease present at the C5-6 and C6-7 levels. The precervical soft tissues are normal. IMPRESSION: Degenerative disc disease as described, with no acute osseous abnormality of the cervical spine. Reviewed, Interpreted and Dictated by Myah Bowser MD Transcribed by Elva Nayak Authenticated and [facility]
== END 2025-01-19 23:59 | disposition home or self-care (01) ==
LOC: RAD 13:53
PROVIDERS: PCP Family Medicine; Visit Provider Family Medicine
DX: M54.2 Cervicalgia (principal)
CPT/HCPCS: 72040

== ENCOUNTER 2025-01-29 08:00 | Outpatient (RCR) | payer OTHER, SELFPAY ==
--- NOTE | 2025-01-26 14:37 | HMH.PTOPEV ---
PT Outpatient Evaluation Rehab PT Outpatient Evaluation Start: 01/26/25 13:48 Freq: Status: Active Protocol: Document 01/26/25 13:48 PDESEROUX (Rec: 01/26/25 14:37 PDESEROUX [id number]) E-signed By Bernard Mckeon, PT Outpatient Therapy Subjective History Subjective History Pt. is a 49 year old female who presents to [facility] in [place] for the outpatient initial evaluation this date( 01/26/25) w/ c/o subacute and constant cervical and BUE(L>R) P!, numbness, and stiffness of insidious onset a couple of months ago. Pt. vocalizes a stiffness across the cervical spine that is worse in the morning times. Pt. vocalizes tingling worsening in B/L hands w/ 2' of driving, but basically anything I do with my hands. Recent diagnostic imaging indicates degenerative disc disease per pt. report. Pt. has a NCV on 02/16/25. Pt. RTMD 02/18/25. Current medications include Atorvastatin, Amlodipine, Lisinopril, Zoloft, Aspirin, Tylenol, Suboxone, Synthroid, Meloxicam, Linzess. PMH includes Hypertension, Hyperlipidemia, S/P lumbar spine fusion, Hyperthyroidism, IBS, PTSD, Partial Hysterectomy, [place] Tooth Extraction. New diagnosis of cancer in past 12 No months? Chief Complaint Pain,Stiff,Paresthesia, Weakness Symptom Type Ache,Sharp,Dull,Stabbing, Numbness,Tingling,Shooting Symptoms Relieved By Rest/Positioning,Ice,Activity Symptoms Aggravated By Sitting,Bending/Stooping, Physical Activity,Twisting, Lifting Prior Functional Limitations None Current Functional Limitations Reaching,Lifting,Housework, Desk Work/Reading,Driving, Sleeping,Sitting,Recreation Activity,Bending/Stooping Symptom Description Constant but Variable,Activity Dependent Level of pain today (0-10) 4 Pain scale - at its best (0-10) 2 Pain scale - at its worst (0-10) 9 Cervical Eval Palpation Cervical Muscles R Cervical Paraspinal,L Cervical Paraspinal,R Suboccipital,L Suboccipital,R CT Junction,L CT Junction,R Upper Trapezius,L Upper Trapezius,R Thoracic Paraspinals,L Thoracic Paraspinals Cervical/Thoracic Palpation Findings Tenderness,Spasm,Muscle Guarding Posture Head/C-Spine Posture Sitting Position Flexed Head/C-Spine Posture Standing Position Flexed Flexibility Deficits Upper Trapezius Muscle Length (R) Severe Tightness,(L) Severe Tightness Levaetor Scapulae Muscle Length (R) Severe Tightness,(L) Severe Tightness Scalene Group Muscle Length (R) Severe Tightness,(L) Severe Tightness Sternocleidomastoid Muscle Length (R) Severe Tightness,(L) Severe Tightness Pectoralis Major Muscle Length (R) Severe Tightness,(L) Severe Tightness Pectoralis Minor Muscle Length (R) Severe Tightness,(L) Severe Tightness Passive Joint Mobility Cervical PIVM Dec: R OA L OA R AA L AA R C2/3 L C2/3 R C3/4 L C3/4 R C4/5 L C4/5 R C5/6 L C5/6 R C6/7 L C6/7 R C7/T1 L C7/T1 AROM Cervical Spine Extension Active Range of 23 Motion (degrees) Cervical Spine Flexion Active Range of 33 Motion (degrees) Cervical Spine Right Lateral Flexion 11 Active Range of Motion (degrees) Cervical Spine Left Lateral Flexion 8 Active Range of Motion (degrees) Cervical Spine Right Rotation Active 41 Range of Motion (degrees) Cervical Spine Left Rotation Active 37 Range of Motion (degrees) MMT Right Deltoid (C5) 4- Good- Biceps Brachii Strength Grade 4- Good- Wrist Extension Strength Grade 4 Good Triceps Brachii Strength Grade 4- Good- Wrist Flexion Strength Grade 4 Good Extensor Pollicis Longus Strength Grade 4 Good Finger Abduction Strength Grade 4 Good Left Deltoid (C5) 3+ Fair+ Biceps Brachii Strength Grade 3+ Fair+ Wrist Extension Strength Grade 4 Good Triceps Brachii Strength Grade 3+ Fair+ Wrist Flexion Strength Grade 4 Good Extensor Pollicis Longus Strength Grade 4 Good Finger Abduction Strength Grade 4 Good DTR Rt Biceps 1+ Lt Biceps 0 Rt Brachioradialis 0 Lt Brachioradialis 0 Rt Triceps 0 Lt Triceps 0 Altered Sensation Left Upper extremity Dermatomes C8 Comment vocalized decreased sensation in above pattern of LUE compared to RUE Special Test C-Spine Foraminal Compression (Spurling) Positive Left,Positive Right Test C-spine Verterbral Accessory Movements Central P/A Page,Right P/A that Elicit Symptoms Page,Left P/A Page C-Spine Foraminal Distraction Test Positive C-Spine Compression Test Positive Left,Positive Right Outpatient Therapy Assessment Impairments Problems/Impairmments Palpation Tenderness,Impaired Range of Motion,Impaired Strength,Impaired Sitting, Impaired Driving,Impaired Lifting,Impaired Dressing, Impaired Shower/Bathing, Impaired Household Care, Impaired Bending,Impaired Recreational Activities, Impaired Desk/Computer Activities,Subjective C/O Pain ,Impaired Self Care/Self Management Prognosis Rehab Potential Good Comment w/ HEP compliancy Clinical Impression Consistent with Diagnosis Yes Consistent with cervical spine DDD Short Term Goals Number of Weeks 2 Decreased Palpation Tenderness Yes: grade 1-2 +TTP Decrease Subjective C/O Pain Yes: worse:04/10 Patient to be Ind w/ HEP Yes Mcfp Goals Number of Weeks 4 Decreased Palpation Tenderness Yes: grade 1 +TTP Increase Range of Motion Yes: cervical spine AROM >85% norms grossly Increase Strength Yes: 4+ to 5/5 BUE MMT scores grossly Increase Ability to Sit Yes: Pt. will be able to sit for 20' w/o difficulty to watch TV Increase Ability to Drive/Ride in Car Yes: Pt. will be able to drive w/o an increase in symptoms Improve Ability to Dress Self Yes: Pt. will dress self w/o difficulty Improve Ability to Shower/Bathe Self Yes: Pt. will bathe self w/o difficulty Improve Neck Disability Index Score Yes Decrease Subjective C/O Pain Yes: worse:-02/08 Patient to be Ind w/ Advanced HEP Yes Outpatient Therapy Plan of Care Treatment Plan May Include Therapeutic Exercise Including Home Yes Exercise Program Manual Therapy Techniques Yes Neuromuscular Re-education Yes Therapeutic Activities to Return to Yes Previous Functional/Work Level ADL/Self Care Education Yes Mechanical Traction Yes: precaution: S/P lumbar fusion Dry Needling Yes Thermal Modalities Yes Electrical Stimulation Yes Ultrasound/Phonophoresis Yes Iontophoresis Yes Vasopneumatic Compression Pump Yes Massage Yes Eval/Re-Eval Yes Frequency Times per week 2 Duration Number of Weeks 4 Addendums This patient is a candidate for social No or vocational rehab? Patient/Guardian verbally acknowledges Yes understanding of treatment program and consents to further treatment? Patient/Guardian verbally acknowledges Yes understanding of diagnosis, prognosis and goals for treatment? Eval Complexity PT Charges 73926 - Low Complexity Shoulder/Elbow Eval Shoulder Objective Measurements Elbow Objective Measurements PHYSICIAN CERTIFICATION: I certify the specified therapy services for [facility] are required, authorized, and reviewed every 30 days.
== END 2025-01-29 23:59 | disposition home or self-care (01) ==
LOC: PT 08:00
PROVIDERS: Visit Provider Family Medicine
DX: M54.2 Cervicalgia (principal)
CPT/HCPCS: 97110; 97140; 97163

== ENCOUNTER 2025-02-09 08:57 | Outpatient (RCR) | payer OTHER, SELFPAY | END 2025-02-12 23:59 | disposition home or self-care (01) | LOC: PT 08:57 | PROVIDERS: Visit Provider Family Medicine | DX: M54.2 Cervicalgia (principal) | CPT/HCPCS: 97110; 97140 ==

== ENCOUNTER 2025-02-25 08:21 | Outpatient (CLI) | payer OTHER, SELFPAY ==
--- NOTE | 2025-02-25 08:24 | XR_ITS ---
FINAL REPORT CLINICAL HISTORY: wrist pain numbness tingling FINDINGS: AP, oblique, and lateral views of the right wrist were obtained. There is no prior exam for comparison. There is no acute fracture or dislocation. There is a cystic lesion in the distal scaphoid and a smaller lesion in the capitate, likely benign. Mild degenerative joint disease is noted IMPRESSION: Degenerative change without acute osseous abnormality of the right wrist. Likely benign cystic lesions. Reviewed, Interpreted and Dictated by Myah Bowser MD Transcribed by Jolynn Zhou Authenticated and . [facility]
--- NOTE | 2025-02-25 08:24 | XR_ITS ---
FINAL REPORT CLINICAL HISTORY: wrist pain numbness tingling FINDINGS: AP, oblique, and lateral views of the left wrist were obtained. There is no prior exam for comparison. There is no acute fracture or dislocation. There is early degenerative joint disease along the radial side of the wrist. The soft tissues are normal. IMPRESSION: Early degenerative change without acute osseous abnormality of the left wrist. Reviewed, Interpreted and Dictated by Myah Bowser MD Transcribed by Jolynn Zhou Authenticated and [facility]
== END 2025-02-25 23:59 | disposition home or self-care (01) ==
LOC: RAD 08:22
PROVIDERS: PCP Family Medicine; Visit Provider Physician Assistant
DX: M25.531 Pain in right wrist (principal); M25.532 Pain in left wrist
CPT/HCPCS: 73110

== ENCOUNTER 2025-02-26 15:23 | Outpatient (CLI) | payer OTHER, SELFPAY ==
[2025-02-26 15:52] LABS: Blood Urea Nitrogen 18 mg/dl (7-17); Estimated Glomerular Filt Rate 40 ml/min (>60); GFR (African American) 48 ML/MIN (>60)
--- NOTE | 2025-02-26 16:00 | MR_ITS ---
FINAL REPORT CLINICAL HISTORY: Chronic pain/numbness and tingling down arm COMPARISON: None FINDINGS: MRI CERVICAL SPINE, WITHOUT AND WITH CONTRAST TECHNIQUE: Multiplanar MR without and with contrast administration. FINDINGS: No fracture is present. Alignment is normal. The cervical spinal cord shows normal signal and contour. No abnormal enhancement is present. There may be a component of ossification of the posterior longitudinal ligament present. If indicated, CT could better evaluate. C2-C3: A small central disc protrusion is present without evidence of canal or neural foraminal narrowing. C3-C4: A minimal annular bulge is present without evidence of canal or neural foraminal narrowing. C4-C5: A moderate central disc protrusion is present with mild canal stenosis and cord contact. C5-C6: A moderate annular bulge is present with mild canal stenosis, and moderate bilateral neural foraminal narrowing. C6-C7: A moderate annular bulge is present with mild canal stenosis and moderate bilateral neural foraminal narrowing. C7-T1: No significant disc disease is present. There is no canal stenosis. IMPRESSION: Degenerative changes with multilevel canal stenosis, most prominent at the C4-5, C5-6, and C6-7 levels. No mass or abnormal enhancement is identified. Reviewed, Interpreted and Dictated by Hesham Montiel MD Transcribed by Elva Nayak Authenticated and [facility]
[2025-02-26] MEDS: GADOTERIDOL INJ 20ML SYRINGE 15 ML IV (16:51)
[2025-02-26] MEDS: SODIUM CHLORIDE 0.9% 10ML SYR (RAD ONLY) 10 ML IV (16:51)
== END 2025-02-26 23:59 | disposition home or self-care (01) ==
LOC: RAD 15:24
PROVIDERS: PCP Family Medicine; Visit Provider Family Medicine
DX: M54.2 Cervicalgia (principal); R20.0 Anesthesia of skin; R20.2 Paresthesia of skin; R29.898 Other symptoms and signs involving the musculoskeletal system
CPT/HCPCS: 36415; 72156; 82565; 84520; A9576

== ENCOUNTER 2025-04-14 09:06 | Day surgery (SDC) | payer OTHER, SELFPAY ==
[2025-04-12 17:41] VITALS: BMI 27.4
[2025-04-14 11:15] VITALS: BP 143/77; PULSE 64; RESP 18; TEMP 36.4; O2SAT 99
[2025-04-14] MEDS: LACTATED RINGERS 1000ML 1,000 ML 50 ML IV (11:25)
--- NOTE | 2025-04-14 11:44 | P.HP_ITS ---
History of Present Illness *Admission Date: 04/14/25 *Reason for visit:: Constipation/bloating/fecal impaction/change in bowel habits *History of present illness: Mrs. Vences is a 49-year-old female who is here for diagnostic colonoscopy. She has had longstanding constipation but this has worsened and now she has fecal impaction and sometimes has to manually disimpact. The examination is deemed medically necessary for diagnostic colonoscopy she did have a colonoscopy in March 2022 (Shailesh Pryor M.D.) and had a poor bowel preparation but still had a single polyp (tubular adenoma) removed and he was recommended to have 1 year surveillance which she is not yet done. The patient has been seen, interviewed and examined prior to the procedure by both myself and the anesthesia provider. [facility] Disclaimer: The information contained in this section may have been updated after the patient was seen, as this information can be updated by other users. Medical History PVC (premature ventricular contraction) Abnormal stress test Ingrown nail Kidney stone Typical angina Family history of coronary artery disease in father GORDILLO (dyspnea on exertion) Angina pectoris Coronary artery disease HLD (hyperlipidemia) SVT (supraventricular tachycardia) Chest pain Abnormal findings on diagnostic imaging of heart and coronary circulation Blockage of kidney vein Renal colic on left side Lumbar strain Acute viral syndrome Shoulder pain Upper respiratory tract infection due to COVID-19 virus (~12/09/23) Overweight (BMI 25.0-29.9) Hematoma Chest wall pain Viral upper respiratory infection Bronchitis Diarrhea Hypothyroidism Hypertension Anxiety Surgical History History of back surgery H/O: hysterectomy History of colonoscopy Family History Other Family history of cancer Family history of heart disease Social History (Updated 04/14/25 @ 11:22 by Marianela Archer RN) Smoking Status: Current every day smoker tobacco type: cigarettes packs per day: 1 alcohol intake: never substance use 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 current occupational status: unemployed Travel in the last 8 weeks?: None household members: significant other housing: house 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 Have you lived/traveled outside US in past 30 days?: No Contact w/someone who lives/traveled outside US past 30 days?: No Exposure to someone with infectious disease in past 14 days?: No Do you have a fever (greater than 100.4 F or 38 C)?: No Have you tested positive for COVID-19?: No Exposed to someone with COVID-19 in past 14 days?: No Do you have a sore throat?: No Do you have a cough?: No Do you have any weakness?: No Are you experiencing any nausea/vomitting?: No Do you have any diarrhea?: No Are you experiencing any unusual bleeding?: No Do you have any muscle aches/pain?: No Do you have any abdominal pain?: No Are you experiencing loss of taste or smell?: No Other Medical History Have you received the Flu Vaccine for this season: No Have you received the Pneumonia Vaccine: No Review of Systems Review of Systems Review of systems (narrative): Negative *Cardiovascular Comments: Negative *Gastrointestinal Comments: Negative *Genitourinary Comments: Negative *Musculoskeletal Comments: Negative *Neurologic Comments: Negative Meds Home Medications and Allergies Home Medications ?Medication ?Instructions ?Recorded ?Confirmed ?Type buprenorphine 8 mg-naloxone 2 mg 1 tab sublingual DAILY 04/03/24 04/14/25 History sublingual tablet bisoprolol fumarate 10 mg tablet 10 mg PO .twice daily 90 days #180 04/22/24 04/14/25 Rx tabs amlodipine 5 mg tablet 5 mg PO DAILY #90 tabs 06/01/24 04/14/25 Rx atorvastatin 40 mg tablet (Lipitor) 40 mg PO HS #90 tabs 06/01/24 04/14/25 Rx lisinopril 20 1 tab PO DAILY #90 tabs 06/01/24 04/14/25 Rx mg-hydrochlorothiazide 25 mg tablet magnesium citrate (Citrate of 150 ml PO DAILY PRN Constipation 10/22/24 04/14/25 History Magnesia oral) psyllium seed (sugar) oral powder 1 tbsp PO DAILY PRN supplement 10/22/24 04/14/25 History (Metamucil (sugar) oral powder) linaclotide 290 mcg capsule 290 mcg PO DAILY #90 caps 02/16/25 04/14/25 Rx (Linzess) sertraline 100 mg tablet See Rx Instructions .Route 02/22/25 04/14/25 Rx .COMPLEX #90 tabs levothyroxine 25 mcg tablet See Rx Instructions .Route 02/23/25 04/14/25 Rx .COMPLEX #30 tabs mecobalamin (vitamin B12) 1,000 1,000 mcg PO DAILY #30 tabs 03/03/25 04/14/25 Rx mcg chewable tablet aspirin 81 mg tablet,delayed 81 mg PO DAILY #30 tabs 04/09/25 04/14/25 Rx release (Adult Aspirin Regimen) loratadine 10 mg tablet 10 mg PO DAILY 04/12/25 04/14/25 History meloxicam 7.5 mg tablet 7.5 mg PO DAILY 04/12/25 04/14/25 History New Prescriptions to Start Prescriptions: Allergies Allergy/AdvReac Type Severity Reaction Status Date / Time latex Allergy Mild Unknown Verified 04/14/25 11:09 allergy reaction Penicillins Allergy Mild Hives Verified 04/14/25 11:09 codeine AdvReac Mild Nausea Verified 04/14/25 11:09 Exam Data for Last 24 hours Vital signs and Labs for Last 24 Hours: Temp Pulse Resp BP Pulse Ox O2 Del Method 97.6 F 64 18 143/77 H 99 Room Air 04/14/25 11:15 04/14/25 11:15 04/14/25 11:15 04/14/25 11:15 04/14/25 11:15 04/14/25 11:15 I & O for Last 24 hours: Intake & Output 04/11/25 04/12/25 04/13/25 04/14/25 23:59 23:59 23:59 23:59 Weight 155 lb *Routine HEENT Exam Head: Present normocephalic Eye: Present EOMI and PERRL ENT: Present mucous membranes moist *Routine Neck Exam Neck: Present supple *Routine Respiratory Exam Respiratory: Present CTA bilaterally *Routine Cardiovascular Exam Cardiovascular: Present RRR *Routine Abdominal Exam Abdominal: Present soft and normoactive bowel sounds; Absent tenderness *Routine Rectal Exam Rectal:: deferred *Routine Genitalia Exam Genitalia:: deferred *Routine Extremities Exam Extremities: Absent cyanosis, clubbing or edema *Routine Skin Exam Skin: Present warm; Absent rash *Routine Neurological Exam Neurological: Present alert and oriented X3 Assessment and Plan *Assessment and plan (1) Chronic idiopathic constipation: Status: Acute Category: Medical Code(s): K59.04 - Chronic idiopathic constipation (2) Fecal impaction: Status: Acute Category: Medical Code(s): K56.41 - Fecal impaction (3) Change in bowel habits: Status: Acute Category: Medical Code(s): R19.4 - Change in bowel habit (4) Personal history of adenomatous and serrated colon polyps: Status: Acute Category: Medical Code(s): Z86.0101 - Personal history of adenomatous and serrated colon polyps Plan 1. A/P: 1. Change in bowel habits with worsening constipation and fecal impaction (requiring manual disimpaction) and personal history of adenomatous polyps is the preprocedural diagnosis. The patient will be anesthetized/sedated using MAC sedation. The patient has been seen and examined. Cardiac and lung assessment prior to the examination is stable. Proceed with planned diagnostic colonoscopy.
--- NOTE | 2025-04-14 11:50 | P.PNANES_ITS ---
[facility] Disclaimer: The information contained in this section may have been updated after the patient was seen, as this information can be updated by other users. Medical History PVC (premature ventricular contraction) Abnormal stress test Ingrown nail Kidney stone Typical angina Family history of coronary artery disease in father GORDILLO (dyspnea on exertion) Angina pectoris Coronary artery disease HLD (hyperlipidemia) SVT (supraventricular tachycardia) Chest pain Abnormal findings on diagnostic imaging of heart and coronary circulation Blockage of kidney vein Renal colic on left side Lumbar strain Acute viral syndrome Shoulder pain Upper respiratory tract infection due to COVID-19 virus (~12/09/23) Overweight (BMI 25.0-29.9) Hematoma Chest wall pain Viral upper respiratory infection Bronchitis Diarrhea Hypothyroidism Hypertension Anxiety Surgical History History of back surgery H/O: hysterectomy History of colonoscopy Family History Other Family history of cancer Family history of heart disease Social History (Updated 04/14/25 @ 11:22 by Marianela Archer RN) Smoking Status: Current every day smoker tobacco type: cigarettes packs per day: 1 alcohol intake: never substance use 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 current occupational status: unemployed Travel in the last 8 weeks?: None household members: significant other housing: house 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 Have you lived/traveled outside US in past 30 days?: No Contact w/someone who lives/traveled outside US past 30 days?: No Exposure to someone with infectious disease in past 14 days?: No Do you have a fever (greater than 100.4 F or 38 C)?: No Have you tested positive for COVID-19?: No Exposed to someone with COVID-19 in past 14 days?: No Do you have a sore throat?: No Do you have a cough?: No Do you have any weakness?: No Are you experiencing any nausea/vomitting?: No Do you have any diarrhea?: No Are you experiencing any unusual bleeding?: No Do you have any muscle aches/pain?: No Do you have any abdominal pain?: No Are you experiencing loss of taste or smell?: No [facility] Anesthesia Checklist Patient Identification Patient Identification: Arm Band and Verbal (Name & ) Structural Data Admitted From: Home Planned Operative Procedure/s: colonscopy Consent for Planned Operative Procedure(s) Verified: Yes Verified Documents: Surgical Consent and History and Physical NPO Status Verified Time NPO: 00:00 Additional verifications Anesthesia Reactions: No Hx Blood Transfusions: No Blood Transfusion Reaction: No Airway Assessment Mallampati Score:: Class II Anesthesia Plan Anesthesia Risk discussed: Yes Anesthesia Plan: Verified ASA Class: II Anesthesia Type: MAC
--- NOTE | 2025-04-14 11:55 | P.PCN_ITS ---
[facility] Procedure Note Date: 04/14/25 Time: 12:01 Procedure Note:: Sigmoidoscopy procedure Report: Aborted colonoscopy Endoscopist: Catarino Cadena II, MD Referring physician: SAPNA Vanegas Date of Procedure: April 14, 2025 Equipment: Olympus 190 variable stiffness pediatric colonoscope Sedation: MAC sedation Indication: Mrs. Vences is a 49-year-old female who is here for diagnostic colonoscopy. She has struggled with constipation since she was a teenager and has been on various regimens including Metamucil, stool softeners, MiraLAX, magnesium citrate, Trulance and now is on Linzess. This has worsened and now she sometimes will have to manually disimpact. She does get a lot of bloating, gassiness, nausea, belching and occasional regurgitation and vomiting. She reports no rectal bleeding or weight loss. She reports no family history of colon cancer. Her maternal grandfather had esophageal cancer. The patient did have an attempted colonoscopy in March 2022 with very poor bowel preparation. A single polyp (tubular adenoma) was removed at that time and Dr. Shailesh Pryor M.D. did recommend repeat surveillance at 1 year. Procedure: Prior to the procedure, a history and physical exam was performed, and patient's medications and allergies were reviewed. The risks, benefits and alternatives of the sedation and procedure were discussed with the patient. All questions were answered and informed consent was obtained. The patient was brought to the procedure room. Patient identification and proposed procedure were verified by the physician and the nurse. The patient was placed in a left lateral decubitus position and the scope was passed under direct vision. Throughout the procedure, the patient's blood pressure, pulse, and oxygen saturations were monitored continuously. The colonoscopy was accomplished without difficulty. The patient tolerated the procedure well. Findings: On digital rectal examination, there was normal rectal tone, there were no external hemorrhoids. The scope was then inserted through the anal canal to the rectum and advanced to 25 to 30 cm from the anal verge. There was abundant brown liquid stool impairing visualization with an inadequate bowel preparation. The procedure was then aborted. The sigmoid, rectosigmoid and rec alfonso were grossly normal. Impression: 1. Inadequate bowel preparation?aborted colonoscopy Plan: I would recommend 2-day bowel preparation and repeat diagnostic colonoscopy. I would also recommend continuation of Linzess plus fiber bowel regimen and would consider adding Perdiem in the evenings. I do suspect outlet dysfunction constipation and she would probably benefit from pelvic floor physical therapy.
[2025-04-14 12:06] VITALS: BP 118/71; PULSE 66; RESP 16; TEMP 36.4; O2SAT 97
[2025-04-14 12:16] VITALS: BP 132/77; PULSE 70; RESP 16; O2SAT 98
[2025-04-14 12:26] VITALS: BP 124/74; PULSE 68; RESP 16; O2SAT 99
[2025-04-14 12:36] VITALS: BP 122/72; PULSE 60; RESP 16; O2SAT 98
[2025-04-14 12:56] VITALS: BP 123/76; PULSE 67; RESP 16; O2SAT 98
== END 2025-04-14 12:56 | disposition home or self-care (01) ==
PROVIDERS: PCP Family Medicine; Visit Provider Internal Medicine Gastroenterology
PROC: 0DJD8ZZ Inspection of Lower Intestinal Tract, Via Natural or Artificial Opening Endoscopic (ICD-10-PCS; CPT 45378; principal; 2025-04-14 12:00)
DX: K59.04 Chronic idiopathic constipation (principal); R14.0 Abdominal distension (gaseous); R11.2 Nausea with vomiting, unspecified; Z86.0101 Personal history of adenomatous and serrated colon polyps; Z80.0 Family history of malignant neoplasm of digestive organs; Z53.8 Procedure and treatment not carried out for other reasons
CPT/HCPCS: 45378; J7120

== ENCOUNTER 2025-07-29 12:04 | Day surgery (SDC) | payer OTHER, SELFPAY ==
[2025-07-27 14:01] VITALS: BMI 28.3
--- NOTE | 2025-07-28 15:50 | EXP.HP ---
History of Present Illness *Admission Date: 07/29/25 *History of present illness: Mrs. Vences is a 50-year-old female who is here for diagnostic colonoscopy. The patient had an attempted colonoscopy in April 2025 but was unprepped and the procedure was aborted. She has struggled with constipation since she was a teenager and has been on various regimens including Metamucil, stool softeners, MiraLAX, magnesium citrate, Trulance and now is on Linzess. This has worsened and now she sometimes will have to manually disimpact. She does get a lot of bloating, gassiness, nausea, belching and occasional regurgitation and vomiting. She reports no rectal bleeding or weight loss. She reports no family history of colon cancer. Her maternal grandfather had esophageal cancer. The patient did have an attempted colonoscopy in March 2022 with very poor bowel preparation. A single polyp (tubular adenoma) was removed at that time and Dr. Shailesh Pryor M.D. did recommend repeat surveillance at 1 year. [facility] Disclaimer: The information contained in this section may have been updated after the patient was seen, as this information can be updated by other users. Medical History PVC (premature ventricular contraction) Abnormal stress test Ingrown nail Kidney stone Typical angina Family history of coronary artery disease in father GORDILLO (dyspnea on exertion) Angina pectoris Coronary artery disease HLD (hyperlipidemia) SVT (supraventricular tachycardia) Chest pain Abnormal findings on diagnostic imaging of heart and coronary circulation Blockage of kidney vein Renal colic on left side Lumbar strain Acute viral syndrome Shoulder pain Upper respiratory tract infection due to COVID-19 virus (~12/09/23) Overweight (BMI 25.0-29.9) Hematoma Chest wall pain Viral upper respiratory infection Bronchitis Diarrhea Hypothyroidism Hypertension Anxiety Surgical History History of back surgery H/O: hysterectomy History of colonoscopy Family History Other Family history of cancer Family history of heart disease Social History Smoking Status: Current every day smoker tobacco type: cigarettes packs per day: 1 alcohol intake: never substance use type: former substance user, marijuana and IV drugs current occupational status: unemployed Travel in the last 8 weeks?: None household members: significant other housing: house 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 Have you lived/traveled outside [place] in past 30 days?: No Contact w/someone who lives/traveled outside US past 30 days?: No Exposure to someone with infectious disease in past 14 days?: No Do you have a fever (greater than 100.4 F or 38 C)?: No Have you tested positive for COVID-19?: No Exposed to someone with COVID-19 in past 14 days?: No Do you have a sore throat?: No Do you have a cough?: No Do you have any weakness?: No Do you have any diarrhea?: No Are you experiencing any unusual bleeding?: No Do you have any muscle aches/pain?: No Do you have any abdominal pain?: No Are you experiencing loss of taste or smell?: No Other Medical History Have you received the Flu Vaccine for this season: No Have you received the Pneumonia Vaccine: No Review of Systems Review of Systems Review of systems (narrative): Negative *Cardiovascular Comments: Negative *Gastrointestinal Comments: Negative *Genitourinary Comments: Negative *Musculoskeletal Comments: Negative *Neurologic Comments: Negative Meds Home Medications and Allergies Home Medications ?Medication ?Instructions ?Recorded ?Confirmed ?Type buprenorphine 8 mg-naloxone 2 mg 1 tab sublingual DAILY 04/03/24 07/27/25 History sublingual tablet psyllium seed (sugar) oral powder 1 tbsp PO DAILY PRN supplement 10/22/24 07/27/25 History (Metamucil (sugar) oral powder) linaclotide 290 mcg capsule 290 mcg PO DAILY #90 caps 02/16/25 07/27/25 Rx (Linzess) sertraline 100 mg tablet See Rx Instructions .Route 02/22/25 07/27/25 Rx .COMPLEX #90 tabs mecobalamin (vitamin B12) 1,000 1,000 mcg PO DAILY #30 tabs 03/03/25 07/27/25 Rx mcg chewable tablet aspirin 81 mg tablet,delayed 81 mg PO DAILY #30 tabs 04/09/25 07/27/25 Rx release (Adult Aspirin Regimen) loratadine 10 mg tablet 10 mg PO DAILY 04/12/25 07/27/25 History levothyroxine 25 mcg tablet See Rx Instructions .Route 05/14/25 07/27/25 Rx .COMPLEX #30 tabs bisoprolol fumarate 10 mg tablet 10 mg PO .twice daily 90 days #180 05/18/25 07/27/25 Rx tabs gabapentin 300 mg capsule 300 mg PO DAILY 05/19/25 07/27/25 History prazosin 2 mg capsule 2 mg PO DAILY 05/19/25 07/27/25 History amlodipine 5 mg tablet 5 mg PO DAILY #90 tabs 06/15/25 07/27/25 Rx atorvastatin 40 mg tablet (Lipitor) 40 mg PO HS #90 tabs 06/15/25 07/27/25 Rx lisinopril 20 1 tab PO DAILY #90 tabs 06/15/25 07/27/25 Rx mg-hydrochlorothiazide 25 mg tablet meloxicam 7.5 mg tablet See Rx Instructions .Route 07/26/25 07/27/25 Rx .COMPLEX #90 tabs New Prescriptions to Start Prescriptions: Allergies Allergy/AdvReac Type Severity Reaction Status Date / Time latex Allergy Mild Unknown Verified 07/29/25 12:23 allergy reaction Penicillins Allergy Mild Hives Verified 07/29/25 12:23 codeine AdvReac Mild Nausea Verified 07/29/25 12:23 Exam Data for Last 24 hours I & O for Last 24 hours: Intake & Output 07/25/25 07/26/25 07/27/25 07/28/25 23:59 23:59 23:59 23:59 Weight 160 lb *Routine HEENT Exam Head: Present normocephalic Eye: Present EOMI and PERRL ENT: Present mucous membranes moist *Routine Neck Exam Neck: Present supple *Routine Respiratory Exam Respiratory: Present CTA bilaterally *Routine Cardiovascular Exam Cardiovascular: Present RRR *Routine Abdominal Exam Abdominal: Present soft and normoactive bowel sounds; Absent tenderness *Routine Rectal Exam Rectal:: deferred *Routine Genitalia Exam Genitalia:: deferred *Routine Extremities Exam Extremities: Absent cyanosis, clubbing or edema *Routine Skin Exam Skin: Present warm; Absent rash *Routine Neurological Exam Neurological: Present alert and oriented X3 Assessment and Plan *Assessment and plan (1) Chronic idiopathic constipation: Status: Acute Category: Medical Code(s): K59.04 - Chronic idiopathic constipation (2) Fecal impaction: Status: Acute Category: Medical Code(s): K56.41 - Fecal impaction (3) Change in bowel habits: Status: Acute Category: Medical Code(s): R19.4 - Change in bowel habit (4) Personal history of adenomatous and serrated colon polyps: Status: Acute Category: Medical Code(s): Z86.0101 - Personal history of adenomatous and serrated colon polyps Plan A/P: 1. Intractable constipation with fecal impaction, bloating and regurgitation. She did have an adenomatous polyp removed in March 2022 is the preprocedural diagnosis. The patient will be anesthetized/sedated using MAC sedation. The patient has been seen and examined. Cardiac and lung assessment prior to the examination is stable. Proceed with planned diagnostic colonoscopy.
[2025-07-29] MEDS: LACTATED RINGERS 1000ML 1,000 ML 50 ML IV (12:22)
[2025-07-29 12:24] VITALS: BP 138/69; PULSE 64; RESP 18; TEMP 36.1; O2SAT 96
--- NOTE | 2025-07-29 12:51 | EXP.ANES.CKL ---
[facility] Disclaimer: The information contained in this section may have been updated after the patient was seen, as this information can be updated by other users. Medical History PVC (premature ventricular contraction) Abnormal stress test Ingrown nail Kidney stone Typical angina Family history of coronary artery disease in father GORDILLO (dyspnea on exertion) Angina pectoris Coronary artery disease HLD (hyperlipidemia) SVT (supraventricular tachycardia) Chest pain Abnormal findings on diagnostic imaging of heart and coronary circulation Blockage of kidney vein Renal colic on left side Lumbar strain Acute viral syndrome Shoulder pain Upper respiratory tract infection due to COVID-19 virus (~12/09/23) Overweight (BMI 25.0-29.9) Hematoma Chest wall pain Viral upper respiratory infection Bronchitis Diarrhea Hypothyroidism Hypertension Anxiety Surgical History History of back surgery H/O: hysterectomy History of colonoscopy Family History Other Family history of cancer Family history of heart disease Social History Smoking Status: Current every day smoker tobacco type: cigarettes packs per day: 1 alcohol intake: never substance use type: former substance user, marijuana and IV drugs current occupational status: unemployed Travel in the last 8 weeks?: None household members: significant other housing: house 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 Have you lived/traveled outside [place] in past 30 days?: No Contact w/someone who lives/traveled outside [place] past 30 days?: No Exposure to someone with infectious disease in past 14 days?: No Do you have a fever (greater than 100.4 F or 38 C)?: No Have you tested positive for COVID-19?: No Exposed to someone with COVID-19 in past 14 days?: No Do you have a sore throat?: No Do you have a cough?: No Do you have any weakness?: No Do you have any diarrhea?: No Are you experiencing any unusual bleeding?: No Do you have any muscle aches/pain?: No Do you have any abdominal pain?: No Are you experiencing loss of taste or smell?: No [facility] [place] Anesthesia Checklist Patient Identification Patient Identification: Arm Band Structural Data Admitted From: Home Planned Operative Procedure/s: Colonoscopy Consent for Planned Operative Procedure(s) Verified: Yes Verified Documents: Surgical Consent and History and Physical NPO Status Verified Time NPO: 09:30 (finished prep) Additional verifications Anesthesia Reactions: No Hx Blood Transfusions: No Blood Transfusion Reaction: No Airway Assessment Mallampati Score:: Class II C-Spine Mobility Assessed: Yes TMJ Mobility Assessed: Yes Dentition: Edentulous Neurological Assessment Level of Consciousness: Awake, Alert and Appropriate Anesthesia Plan Anesthesia Risk discussed: Yes Anesthesia Plan: Verified ASA Class: II Anesthesia Type: MAC
--- NOTE | 2025-07-29 13:41 | P.PCN_ITS ---
[facility] Procedure Note Date: 07/29/25 Time: 13:53 Procedure Note:: Colonoscopy Procedure Report: Colonoscopy with cold snare polypectomy Endoscopist: Catarino Cadena II, MD Referring physician: SAPNA Vanegas Date of Procedure: July 29, 2025 Equipment: Olympus [id number] adult colonoscope Sedation: MAC sedation Indication: Mrs. Vences is a 50-year-old female who is here for diagnostic colonoscopy. The patient had an attempted colonoscopy in April 2025 but was unprepped and the procedure was aborted. She has struggled with constipation since she was a teenager and has been on various regimens including Metamucil, stool softeners, MiraLAX, magnesium citrate, Trulance and now is on Linzess. This has worsened and now she sometimes will have to manually disimpact. She does get a lot of bloating, gassiness, nausea, belching and occasional regurgitation and vomiting. She reports no rectal bleeding or weight loss. She reports no family history of colon cancer. Her maternal grandfather had esophageal cancer. The patient did have an attempted colonoscopy in March 2022 with very poor bowel preparation. A single polyp (tubular adenoma) was removed at that time and Dr. Shailesh Pryor M.D. did recommend repeat surveillance at 1 year. Procedure: Prior to the procedure, a history and physical exam was performed, and patient's medications and allergies were reviewed. The risks, benefits and alternatives of the sedation and procedure were discussed with the patient. All questions were answered and informed consent was obtained. The patient was brought to the procedure room. Patient identification and proposed procedure were verified by the physician and the nurse. The patient was placed in a left lateral decubitus position and the scope was passed under direct vision. Throughout the procedure, the patient's blood pressure, pulse, and oxygen saturations were mon itored continuously. The colonoscopy was accomplished without difficulty. The patient tolerated the procedure well. Findings: On digital rectal examination there was normal rectal tone. There were no external hemorrhoids. There was an anterior rectocele. The colonoscope was introduced through the anal canal to the rectum and advanced to the cecum. The ileocecal valve and appendiceal orifice were identified. The scope was advanced a short distance into the ileum which appeared grossly normal. The scope was then withdrawn into the colon. There was a single 4 mm polyp in the descending colon removed via cold snare polypectomy. The remaining cecum, ascending, transverse, descending, sigmoid and rectum were grossly normal. There were no mucosal abnormalities identified. Upon retroflexion within the rectum there were grade 1 internal hemorrhoids. The preparation was excellent throughout with Union Preparation Score of 9. The cecal time was 10 minutes. Impression: 1. Diminutive descending colon polyp (4 mm) Plan: I will follow-up the polyp histology and recommend repeat screening/surveillance colonoscopy again in 5 years. I am going to refer the patient for pelvic floor PT.
[2025-07-29 13:55] VITALS: BP 110/56; PULSE 55; RESP 14; TEMP 36.6; O2SAT 100
[2025-07-29 14:05] VITALS: BP 116/72; PULSE 63; RESP 16; TEMP 36.6; O2SAT 99
[2025-07-29 14:14] VITALS: BP 129/75; PULSE 56; RESP 17; TEMP 36.6; O2SAT 99
[2025-07-29 14:24] VITALS: BP 124/70; PULSE 54; RESP 18; TEMP 36.1; O2SAT 97
== END 2025-07-29 14:46 | disposition home or self-care (01) ==
PROVIDERS: PCP Family Medicine; Visit Provider Internal Medicine Gastroenterology
PROC: 0DJD8ZZ Inspection of Lower Intestinal Tract, Via Natural or Artificial Opening Endoscopic (ICD-10-PCS; CPT 45378; principal; 2025-07-29 13:30)
DX: D12.4 Benign neoplasm of descending colon (principal); K64.0 First degree hemorrhoids; K59.04 Chronic idiopathic constipation; N81.6 Rectocele; I10 Essential (primary) hypertension; F17.210 Nicotine dependence, cigarettes, uncomplicated; E78.5 Hyperlipidemia, unspecified; E03.9 Hypothyroidism, unspecified; I25.119 Atherosclerotic heart disease of native coronary artery with unspecified angina pectoris; Z88.6 Allergy status to analgesic agent; Z88.0 Allergy status to penicillin; Z79.82 Long term (current) use of aspirin; Z86.0101 Personal history of adenomatous and serrated colon polyps; Z80.0 Family history of malignant neoplasm of digestive organs
CPT/HCPCS: 45385; J2003; J2704; J7120

== ENCOUNTER 2025-11-05 15:53 | Emergency (ER) | payer OTHER, SELFPAY ==
[2025-11-05] VITALS (11 sets, daily range): BP systolic 91–149; BP diastolic 56–90; PULSE 58–115; RESP 11–20; TEMP 36.9–37.2; O2SAT 96–99; BMI 27.8
--- NOTE | 2025-11-05 15:53 | ECG_ITS ---
APPROVED REPORT Exam: Resting ECG HR:113 bpm ECG Measurements Heart Rate 113 AXES VT 151 P 67 QRSd 97 QRS 76 QT 284 T 15 QTc 351 Conclusion Sinus tachycardia No overt STEMI, difficult to interpret secondary to baseline artifact Electronically signed by : Olman Kwong, 11/05/2025 23:27:17
--- NOTE | 2025-11-05 16:01 | ED_ITS ---
Discharge Plan Disposition Patient Disposition: Home, Self-Care Condition: Good Prescriptions Prescriptions: No Action buprenorphine-naloxone 8-2 mg tablet, sublingual 1 tab sublingual DAILY Patient Comments: DISSOLVE 2 TABLETS UNDER THE TONGUE ONCE DAILY Metamucil (sugar) Powder 1 tbsp PO DAILY PRN (Reason: supplement) gabapentin 300 mg capsule 300 mg PO DAILY Patient Comments: TAKE ONE CAPSULE BY MOUTH TWICE DAILY MAY CAUSE DROWSINESS prazosin 2 mg capsule 2 mg PO DAILY Patient Comments: TAKE ONE CAPSULE BY MOUTH EVERY DAY AT BEDTIME Linzess 290 mcg capsule 290 mcg PO DAILY Qty: 90 3RF sertraline 100 mg tablet See Rx Instructions .ROUTE .COMPLEX Qty: 90 2RF Dose Instruction: TAKE ONE TABLET BY MOUTH EVERY DAY Rx Instructions: TAKE ONE TABLET BY MOUTH EVERY DAY atorvastatin [Lipitor] 40 mg tablet 40 mg PO HS Qty: 90 3RF amlodipine 5 mg tablet 5 mg PO DAILY Qty: 90 3RF lisinopril-hydrochlorothiazide 20-25 mg tablet 1 tab PO DAILY Qty: 90 3RF Patient Comments: 1/2 in am and 1/2 at HS meloxicam 7.5 mg tablet See Rx Instructions .ROUTE .COMPLEX Qty: 90 1RF Dose Instruction: TAKE ONE TABLET BY MOUTH EVERY DAY --TAKE WITH FOOD-- Rx Instructions: TAKE ONE TABLET BY MOUTH EVERY DAY --TAKE WITH FOOD-- levothyroxine 25 mcg tablet See Rx Instructions .ROUTE .COMPLEX Qty: 30 2RF Dose Instruction: TAKE ONE TABLET BY MOUTH EVERY DAY Rx Instructions: TAKE ONE TABLET BY MOUTH EVERY DAY bisoprolol fumarate 10 mg tablet 10 mg PO .twice daily 90 Days Qty: 180 1RF cyanocobalamin (vitamin B-12) 1,000 mcg tablet See Rx Instructions .ROUTE .COMPLEX Qty: 30 6RF Dose Instruction: TAKE ONE TABLET BY MOUTH EVERY DAY Rx Instructions: TAKE ONE TABLET BY MOUTH EVERY DAY loratadine [Allergy Relief (loratadine)] 10 mg tablet See Rx Instructions .ROUTE .COMPLEX Qty: 90 3RF Dose Instruction: TAKE ONE TABLET BY MOUTH EVERY DAY Rx Instructions: TAKE ONE TABLET BY MOUTH EVERY DAY aspirin [Adult Aspirin Regimen] 81 mg tablet,delayed release (DR/EC) 81 mg PO DAILY Qty: 30 11RF Referrals Follow up/Referrals: Aniya Jacome APRN [Primary Care Provider, Family Practice] - See instructions Jaswinder Olvera MD [Staff Physician, Cardiology] - See instructions Activity Restrictions/Add. Instructions Additional Instructions/Restrictions: Please return to the emergency department with any worsening signs or symptoms. Please continue to take all your medication as prescribed. Please follow-up with your PCP and board of education secretary in the upcoming days/weeks. Clinical Impressions Clinical Impression: Chest pain, Hypokalemia Instructions Patient Instructions: DI for Atypical Chest Pain, DI for Hypokalemia, DI for Chest Pain Print Language Print Language: Ukrainian Discharge ED Provider: Olman Kwong HPI <JAGRUTI Bauer - Last Filed: 11/05/25 19:48> General Chief Complaint: Chest Pain Stated Complaint: CP Time Seen by Provider: 11/05/25 15:58 Mode of Arrival: Ambulatory Source of Information: Patient and Medical Record Limitations: No Limitations History of Present Illness HPI narrative: 50-year-old female presents to the emergency department with left-sided substernal chest pain that radiates into her upper arm/jaw that occurred 1 hour prior to arrival, patient states that she was doing laundry , when it hit her, currently a 10 out of 10, at maximal is a 10 out of 10. She has associated shortness of breath and nausea with this, she has not had any fever chills cough congestion, she denies any abdominal pain, no vomiting, no constipation no diarrhea no urinary symptomatology, denies any hematuria melena hematochezia hematemesis or hemoptysis, no trauma or injury per history patient is a current everyday smoker, occasionally utilizes marijuana, denies any alcohol use, other past medical history is consistent with generalized anxiety/MDD, hyperlipidemia, hypertension, history of Suboxone use, hypothyroidism, IBS, patient has had a heart catheterization last year in 2023, which yielded nonactionable results. Initial triage vitals are notable for tachycardia otherwise unremarkable. Please note that above description of symptoms, in this electronic medical record under categorization of recalled from ER triage doctor by RN are reflective of an initial nursing assessment, however, is not reflective of my full history and physical exam that was personally taken and clarified. Consequentially, this preceding description of symptoms, which may include the patient's categorized chief complaint in the EMR, do not reflect my personal clinical impression, and the ultimate description of history of present illness and patient stated complaints should be deferred to this section of the note. Unless stated otherwise or congruent with this section of the note, additional signs, symptoms, or incongruence should be interpreted as inaccurate with my clinical impression. MD complaint: chest pain Related Data Home Medications ?Medication ?Instructions ?Recorded ?Confirmed buprenorphine 8 mg-naloxone 2 mg 1 tab sublingual NARINDER Y 04/03/24 07/27/25 sublingual tablet psyllium seed (sugar) oral powder 1 tbsp PO DAILY PRN supplement 10/22/24 07/27/25 (Metamucil (sugar) oral powder) gabapentin 300 mg capsule 300 mg PO DAILY 05/19/25 prazosin 2 mg capsule 2 mg PO DAILY 05/19/2507/27 Previous Rx's ?Medication ?Instructions ?Recorded linaclotide 290 mcg capsule 290 mcg PO DAILY #90 caps 02/16/25 (Linzess) sertraline 100 mg tablet See Rx Instructions .Route 0 02/22/25 .COMPLEX #90 tabs amlodipine 5 mg tablet 5 mg PO DAILY #90 tabs 06/15 atorvastatin 40 mg tablet (Lipitor) 40 mg PO HS #90 ta bs 06/15/25 lisinopril 20 1 tab PO DAILY #90 tabs 06/01 04/25 mg-hydrochlorothiazide 25 mg tablet meloxicam 7.5 mg tablet See Rx Instructions .Route 0 07/26/25 .COMPLEX #90 tabs levothyroxine 25 mcg tablet See Rx Instructions .Route 08/09/25 .COMPLEX #30 tabs bisoprolol fumarate 10 mg tablet 10 mg PO .twice daily 90 days #180 08/11/25 tabs cyanocobalamin (vitamin B-12) See Rx Instructions .Rou te 09/17/25 1,000 mcg tablet .COMPLEX #30 tabs loratadine 10 mg tablet (Allergy See Rx Instructions . Route 09/20/25 Relief (loratadine)) .COMPLEX #90 tabs aspirin 81 mg tablet,delayed 81 mg PO DAILY #30 tabs 1 12/04/24 release (Adult Aspirin Regimen) Allergies Allergy/AdvReac Type Severity Reaction Status Date / Time latex Allergy Mild Unknown Verified 07/29/25 12:23 allergy reaction Penicillins Allergy Mild Hives Verified 07/29/25 12:23 codeine AdvReac Mild Nausea Verified 07/29/25 12:23 [facility] <JAGRUTI Bauer - Last Filed: 11/05/25 19:48> [facility] Disclaimer: The information contained in this section may have been updated after the patient was seen, as this information can be updated by other users. Medical History PVC (premature ventricular contraction) Abnormal stress test Ingrown nail Kidney stone Typical angina Family history of coronary artery disease in father GORDILLO (dyspnea on exertion) Angina pectoris Coronary artery disease HLD (hyperlipidemia) SVT (supraventricular tachycardia) Chest pain Abnormal findings on diagnostic imaging of heart and coronary circulation Blockage of kidney vein Renal colic on left side Lumbar strain Acute viral syndrome Shoulder pain Upper respiratory tract infection due to COVID-19 virus (~12/09/23) Overweight (BMI 25.0-29.9) Hematoma Chest wall pain Viral upper respiratory infection Bronchitis Diarrhea Hypothyroidism Hypertension Anxiety Surgical History History of back surgery H/O: hysterectomy History of colonoscopy Family History Other Family history of cancer Family history of heart disease Social History Smoking Status: Current every day smoker tobacco type: cigarettes packs per day: 1 alcohol intake: never substance use type: former substance user, marijuana and IV drugs current occupational status: unemployed Travel in the last 8 weeks?: None household members: significant other housing: house 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 Have you lived/traveled outside [place] in past 30 days?: No Contact w/someone who lives/traveled outside US past 30 days?: No Exposure to someone with infectious disease in past 14 days?: No Do you have a fever (greater than 100.4 F or 38 C)?: No Have you tested positive for COVID-19?: No Exposed to someone with COVID-19 in past 14 days?: No Do you have a sore throat?: No Do you have a cough?: No Do you have any weakness?: No Do you have any diarrhea?: No Are you experiencing any unusual bleeding?: No Do you have any muscle aches/pain?: No Do you have any abdominal pain?: No Are you experiencing loss of taste or smell?: No Other Medical History Have you received the Flu Vaccine for this season: No Have you received the Pneumonia Vaccine: No <JAGRUTI Bauer - Last Filed: 11/05/25 19:48> ROS Obtained: Yes All systems reviewed & no additional complaints except as documented Physical Exam <JAGRUTI Bauer - Last Filed: 11/05/25 19:48> General General appearance: alert and in no apparent distress Comment: Quite tearful and moderately anxious appearing Head Head exam: atraumatic and normocephalic Eye Eye exam: Present normal appearance, PERRL and EOMI Neck Neck exam: Present full ROM; Absent meningismus Chest Chest inspection: Present normal inspection, tenderness and other (Chest wall tenderness palpation) Respiratory Respiratory exam: Present wheezes and other (Mild diffuse wheezes noted throughout bilateral lung field); Absent normal lung sounds bilaterally, respiratory distress, stridor, accessory muscle use or prolonged expiratory phase Cardiovascular Cardiovascular exam: Present normal rhythm, tachycardia and other (Pulses equal and symmetric in bilateral upper and lower extremities) Abdominal Exam Abdominal exam: Absent distention, tenderness, guarding, rebound or organomegaly Extremities Exam Extremities exam: Absent edema Neurological Exam Neurological exam: Present alert Psychiatric Psychiatric exam: Present normal affect Skin Skin exam: Present warm and dry HEART Score <JAGRUTI Bauer - Last Filed: 11/05/25 19:48> HEART Score HEART Score assessment performed?: Yes HEART Score: 3 <Olman Kwong DO - Last Filed: 11/05/25 19:54> HEART Score History (anamnesis): Moderately suspicious ECG: Normal Age: 45-65 years Risk factors: 1-2 risk factors Troponin: </= normal limit HEART Score: 3 Critical Care <JAGRUTI Bauer - Last Filed: 11/05/25 19:48> Critical Care Time Critical Care Time: No Medical Decision Making <JAGRUTI Bauer - Last Filed: 11/05/25 19:48> Medical Records Medical records reviewed: Yes I reviewed the patient's medical records. Bassam Inquiry Pt receiving controlled substance: Yes Bassam was queried for this patient: No Reason not queried -: Emergent pt cond-no time Risks and benefits of using a controlled substance: were discussed with pt by me Vital Signs Vital Signs: 11/05/25 16:00 11/05/25 16:07 11/05/25 16:07 Temperature 98.9 F 98.9 F Temperature Source Oral Oral Pulse Rate 113 H 115 H Pulse Rate [Right] 115 H Respiratory Rate 20 17 17 Blood Pressure 149/76 H 141/70 H Blood Pressure [Right Arm] 141/70 H Blood Pressure Mean Blood Pressure Mean [Right Arm] 93 Blood Pressure Source Automatic Cuff Blood Pressure Source [Right Arm] Automatic Cuff Blood Pressure Position Supine Blood Pressure Position [Right Arm] Supine 02 Sat by Pulse Oximetry 98 99 99 Oxygen Delivery Method Room Air Room Air Room Air 11/05/25 16:31 11/05/25 16:32 11/05/25 17:00 Temperature Temperature Source Pulse Rate 86 87 82 Pulse Rate [Right] Respiratory Rate 17 15 Blood Pressure 111/90 97/64 L Blood Pressure [Right Arm] Blood Pressure Mean 75 Blood Pressure Mean [Right Arm] Blood Pressure Source Blood Pressure Source [Right Arm] Blood Pressure Position Blood Pressure Position [Right Arm] 02 Sat by Pulse Oximetry 98 97 Oxygen Delivery Method Room Air 11/05/25 17:30 11/05/25 18:00 11/05/25 18:30 Temperature Temperature Source Pulse Rate 75 68 63 Pulse Rate [Right] Respiratory Rate 16 11 L 11 L Blood Pressure 103/62 L 91/57 L 96/56 L Blood Pressure [Right Arm] Blood Pressure Mean Blood Pressure Mean [Right Arm] Blood Pressure Source Blood Pressure Source [Right Arm] Blood Pressure Position Blood Pressure Position [Right Arm] 02 Sat by Pulse Oximetry 98 98 98 Oxygen Delivery Method Room Air Room Air 11/05/25 19:00 11/05/25 19:15 11/05/25 19:47 Temperature 98.4 F Temperature Source Oral Pulse Rate 61 62 58 L Pulse Rate [Right] Respiratory Rate 14 13 14 Blood Pressure 100/61 L 102/58 L 138/89 Blood Pressure [Right Arm] Blood Pressure Mean 69 73 Blood Pressure Mean [Right Arm] Blood Pressure Source Automatic Cuff Blood Pressure Source [Right Arm] Blood Pressure Position Sitting Blood Pressure Position [Right Arm] 02 Sat by Pulse Oximetry 96 98 Oxygen Delivery Method Room Air Lab Data Lab results reviewed: Yes I reviewed the patient's lab results. Labs: Lab Results 11/05/25 16:15: WBC 10.9 H, RBC 4.23, Hgb 12.5, Hct 36.1 L, MCV 85.3, MCH 29.6, MCHC 34.6, RDW 12.5, Plt Count 297, MPV 10.3, Neut % (Auto) 56.3, Lymph % (Auto) 31.5, Lassen % (Auto) 9.8 H, Eos % (Auto) 1.6, Baso % (Auto) 0.6, Neut # (Auto) 6.1, Lymph # (Auto) 3.4, Lassen # (Auto) 1.1 H, Eos # (Auto) 0.2, Baso # (Auto) 0.1, PT 11.6, INR 1.05, D-Dimer 0.58 H, Sodium 134 L, Potassium 2.8 L*, Chloride 98, Carbon Dioxide 28, Anion Gap 10.8, BUN 17, Creatinine 1.40 H, Estimated Creat Clear 53, Estimated GFR 40 L, Est GFR ( Amer) 48 L, Glucose 120 H, Calcium 10.0, Magnesium 1.7, Total Bilirubin 0.5, AST 24, ALT 18, Alkaline Phosphatase 98, Troponin I < 0.01, NT-Pro-B Natriuret Pep 544 H, Total Protein 8.0, Albumin 4.6, Globulin 3.4 H, Albumin/Globulin Ratio 1.4, Lipase 78, HCV Ab JANETH w/Rflx PCR Qn Reactive, HIV Ag/Ab Combo Qual Negative 11/05/25 18:54: Troponin I < 0.01 11/05/25 16:15 11/05/25 16:15 Response Orders (Tests/Meds): ED MEDICATIONS Discontinued Medications Generic Name Dose Route Start Last Admin Trade Name Anilq PRN Reason Stop Dose Admin Aspirin 324 mg 11/05/25 16:02 11/05/25 16:21 Aspirin 81mg Chewable Tablet PO 11/05/25 16:03 324 mg ONCE ONE Administration Morphine Sulfate 4 mg 11/05/25 16:07 11/05/25 16:20 Morphine 4mg/Ml Syringe IV 11/05/25 16:08 4 mg ONCE ONE Administration Ondansetron HCl 4 mg 11/05/25 16:07 11/05/25 16:21 Ondansetron 4mg/2ml Vial IV 11/05/25 16:08 4 mg ONCE ONE Administration Potassium Chloride 80 meq 11/05/25 16:38 11/05/25 17:15 Potassium Chloride 20meq Tab PO 11/05/25 16:39 80 meq ONCE ONE Administration ORDERS Category Date Time Status POCUS Point of Care (ER Only) Stat Exams 11/05/25 16:14 Completed XR chest portable Stat Exams 11/05/25 16:02 Completed Complete Blood Count Auto Diff Stat Lab 11/05/25 16:15 Completed Comprehensive Metabolic Panel Stat Lab 11/05/25 16:15 Completed D-Dimer Stat Lab 11/05/25 16:15 Completed HCV RNA PCR, Quant Stat Lab 11/05/25 16:15 Received HIV Combo Stat Lab 11/05/25 16:15 Completed Hepatitis C Ab Qual. W/ RFX Stat Lab 11/05/25 16:15 Completed Lipase Stat Lab 11/05/25 16:15 Completed Magnesium Stat Lab 11/05/25 16:15 Completed NT Pro Brain Natriuretic Pep. Stat Lab 11/05/25 16:15 Completed PT INR [Prothrombin Time INR] Stat Lab 11/05/25 16:15 Completed Troponin I Q3H Lab 11/05/25 18:54 Completed Troponin I Q3H Lab 11/05/25 22:15 Ordered Troponin I Stat Lab 11/05/25 16:15 Completed MDM Narrative Medical Decision Narrative: 50-year-old female presents emergency department with left-sided substernal radiating chest pain as stated in the HPI, this started approximately 1 hour prior to arrival, differential diagnose include but not limited to, ACS, cardiac arrhythmia, electrolyte disturbance, costochondritis, PE, pneumothorax, pneumonia, COPD exacerbation, pleurisy, generalized anxiety, panic attack among others. I discussed this patient's case with the attending physician Dr. Kwong, he saw and examined the patient as well. Will obtain basic laboratory studies, EKG, chest x-ray, D-dimer, magnesium level proBNP PT/INR, troponin, POCUS, give 324 mg p.o. aspirin for pain and 4 mg IV Zofran and 4 mg IV morphine for pain and nausea. Minimal leukocytosis at 10.9 otherwise unremarkable CBC CMP noted for mild hyponatremia at 134, mild hypokalemia at 2.8, thus will replace patient's potassium with 80 mill equivalents p.o. potassium. Creatinine elevation at 1.4 Coags within normal limits, initial troponin is less than 0.01, proBNP is mildly elevated at 544, lipase within normal I reviewed the patient's chest x-ray along the corresponding radiologic report, no acute process on portable exam. D-dimer 0.58, however utilizing years algorithm for pulmonary embolism, as well as no right heart strain noted on POCUS , PE less likely. See attending physician documentation for POCUS ultrasound. See attending physician documentation for ultrasound report Repeat troponin is less than 0.01. I discussed the results with the patient today with the bedside, patient is nearly chest pain-free, states her pain is very mild compared to previous, does have reproducible chest pain on palpation, with 2 negative troponins 2 negative EKGs negative x-ray, years criteria negative with D-dimer, as well as negative POCUS, thought less likely for ACS, patient has remained hemodynamically stable throughout her time in the emergency room, tachycardia is improved. Patient was given very strict return precautions. Patient and family voiced understanding and agreement with the current treatment plan/discharge plan. Heart score of 2- 3 <Olman Kwong, - Last Filed: 11/05/25 19:54> Vital Signs Vital Signs: 11/05/25 16:00 11/05/25 16:07 11/05/25 16:07 Temperature 98.9 F 98.9 F Temperature Source Oral Oral Pulse Rate 113 H 115 H Pulse Rate [Right] 115 H Respiratory Rate 20 17 17 Blood Pressure 149/76 H 141/70 H Blood Pressure [Right Arm] 141/70 H Blood Pressure Mean Blood Pressure Mean [Right Arm] 93 Blood Pressure Source Automatic Cuff Blood Pressure Source [Right Arm] Automatic Cuff Blood Pressure Position Supine Blood Pressure Position [Right Arm] Supine 02 Sat by Pulse Oximetry 98 99 99 Oxygen Delivery Method Room Air Room Air Room Air 11/05/25 16:31 11/05/25 16:32 11/05/25 17:00 Temperature Temperature Source Pulse Rate 86 87 82 Pulse Rate [Right] Respiratory Rate 17 15 Blood Pressure 111/90 97/64 L Blood Pressure [Right Arm] Blood Pressure Mean 75 Blood Pressure Mean [Right Arm] Blood Pressure Source Blood Pressure Source [Right Arm] Blood Pressure Position Blood Pressure Position [Right Arm] 02 Sat by Pulse Oximetry 98 97 Oxygen Delivery Method Room Air 11/05/25 17:30 11/05/25 18:00 11/05/25 18:30 Temperature Temperature Source Pulse Rate 75 68 63 Pulse Rate [Right] Respiratory Rate 16 11 L 11 L Blood Pressure 103/62 L 91/57 L 96/56 L Blood Pressure [Right Arm] Blood Pressure Mean Blood Pressure Mean [Right Arm] Blood Pressure Source Blood Pressure Source [Right Arm] Blood Pressure Position Blood Pressure Position [Right Arm] 02 Sat by Pulse Oximetry 98 98 98 Oxygen Delivery Method Room Air Room Air 11/05/25 19:00 11/05/25 19:15 11/05/25 19:47 Temperature 98.4 F Temperature Source Oral Pulse Rate 61 62 58 L Pulse Rate [Right] Respiratory Rate 14 13 14 Blood Pressure 100/61 L 102/58 L 138/89 Blood Pressure [Right Arm] Blood Pressure Mean 69 73 Blood Pressure Mean [Right Arm] Blood Pressure Source Automatic Cuff Blood Pressure Source [Right Arm] Blood Pressure Position Sitting Blood Pressure Position [Right Arm] 02 Sat by Pulse Oximetry 96 98 Oxygen Delivery Method Room Air Lab Data Labs: Lab Results 11/05/25 16:15: WBC 10.9 H, RBC 4.23, Hgb 12.5, Hct 36.1 L, MCV 85.3, MCH 29.6, MCHC 34.6, RDW 12.5, Plt Count 297, MPV 10.3, Neut % (Auto) 56.3, Lymph % (Auto) 31.5, Lassen % (Auto) 9.8 H, Eos % (Auto) 1.6, Baso % (Auto) 0.6, Neut # (Auto) 6.1, Lymph # (Auto) 3.4, Lassen # (Auto) 1.1 H, Eos # (Auto) 0.2, Baso # (Auto) 0.1, PT 11.6, INR 1.05, D-Dimer 0.58 H, Sodium 134 L, Potassium 2.8 L*, Chloride 98, Carbon Dioxide 28, Anion Gap 10.8, BUN 17, Creatinine 1.40 H, Estimated Creat Clear 53, Estimated GFR 40 L, Est GFR ( Amer) 48 L, Glucose 120 H, Calcium 10.0, Magnesium 1.7, Total Bilirubin 0.5, AST 24, ALT 18, Alkaline Phosphatase 98, Troponin I < 0.01, NT-Pro-B Natriuret Pep 544 H, Total Protein 8.0, Albumin 4.6, Globulin 3.4 H, Albumin/Globulin Ratio 1.4, Lipase 78, HCV Ab JANETH w/Rflx PCR Qn Reactive, HIV Ag/Ab Combo Qual Negative 11/05/25 18:54: Troponin I < 0.01 Response Orders (Tests/Meds): ED MEDICATIONS Discontinued Medications Generic Name Dose Route Start Last Admin Trade Name Jimy PRN Reason Stop Dose Admin Aspirin 324 mg 11/05/25 16:02 11/05/25 16:21 Aspirin 81mg Chewable Tablet PO 11/05/25 16:03 324 mg ONCE ONE Administration Morphine Sulfate 4 mg 11/05/25 16:07 11/05/25 16:20 Morphine 4mg/Ml Syringe IV 11/05/25 16:08 4 mg ONCE ONE Administration Ondansetron HCl 4 mg 11/05/25 16:07 11/05/25 16:21 Ondansetron 4mg/2ml Vial IV 11/05/25 16:08 4 mg ONCE ONE Administration Potassium Chloride 80 meq 11/05/25 16:38 11/05/25 17:15 Potassium Chloride 20meq Tab PO 11/05/25 16:39 80 meq ONCE ONE Administration ORDERS Category Date Time Status POCUS Point of Care (ER Only) Stat Exams 11/05/25 16:14 Completed XR chest portable Stat Exams 11/05/25 16:02 Completed Complete Blood Count Auto Diff Stat Lab 11/05/25 16:15 Completed Comprehensive Metabolic Panel Stat Lab 11/05/25 16:15 Completed D-Dimer Stat Lab 11/05/25 16:15 Completed HCV RNA PCR, Quant Stat Lab 11/05/25 16:15 Received HIV Combo Stat Lab 11/05/25 16:15 Completed Hepatitis C Ab Qual. W/ RFX Stat Lab 11/05/25 16:15 Completed Lipase Stat Lab 11/05/25 16:15 Completed Magnesium Stat Lab 11/05/25 16:15 Completed NT Pro Brain Natriuretic Pep. Stat Lab 11/05/25 16:15 Completed PT INR [Prothrombin Time INR] Stat Lab 11/05/25 16:15 Completed Troponin I Q3H Lab 11/05/25 18:54 Completed Troponin I Q3H Lab 11/05/25 22:15 Ordered Troponin I Stat Lab 11/05/25 16:15 Completed ECG Data Tracing #1: Attestation: I reviewed this ECG and interpreted as documented below: ECG Narrative: EKG personally interpreted by me demonstrates sinus tachycardia at a rate of 113 bpm, normal axis, no VT prolongation, narrow QRS, no QTc prolongation. There is not appear to be any overt ST elevation, however overall interpretation is limited by baseline artifact. We will repeat a delta EKG Tracing #2: Attestation: I reviewed this ECG and interpreted as documented below: ECG Narrative: EKG personally interpreted by me demonstrates normal sinus rhythm at a rate of 84 bpm, normal axis, no VT prolongation, narrow QRS, no QTc prolongation. No ST ovation or depression. No overt signs of ischemia or arrhythmia MDM Narrative Medical Decision Narrative: 50-year-old female presents emergency department with left-sided substernal radiating chest pain as stated in the HPI, this started approximately 1 hour prior to arrival, differential diagnose include but not limited to, ACS, cardiac arrhythmia, electrolyte disturbance, costochondritis, PE, pneumothorax, pneumonia, COPD exacerbation, pleurisy, generalized anxiety, panic attack among others. I discussed this patient's case with the attending physician Dr. Kwong, he saw and examined the patient as well. Will obtain basic laboratory studies, EKG, chest x-ray, D-dimer, magnesium level proBNP PT/INR, troponin, POCUS, give 324 mg p.o. aspirin for pain and 4 mg IV Zofran and 4 mg IV morphine for pain and nausea. Minimal leukocytosis at 10.9 otherwise unremarkable CBC CMP noted for mild hyponatremia at 134, mild hypokalemia at 2.8, thus will replace patient's potassium with 80 mill equivalents p.o. potassium. Creatinine elevation at 1.4 Coags within normal limits, initial troponin is less than 0.01, proBNP is mildly elevated at 544, lipase within normal I reviewed the patient's chest x-ray along the corresponding radiologic report, no acute process on portable exam. D-dimer 0.58, however utilizing years algorithm for pulmonary embolism, as well as no right heart strain noted on POCUS , PE less likely. See attending physician documentation for POCUS ultrasound. See attending physician documentation for ultrasound report Repeat troponin is less than 0.01. I discussed the results with the patient today with the bedside, patient is nearly chest pain-free, states her pain is very mild compared to previous, does have reproducible chest pain on palpation, with 2 negative troponins 2 negative EKGs negative x-ray, years criteria negative with D-dimer, as well as negative POCUS, thought less likely for ACS, patient has remained hemodynamically stable throughout her time in the emergency room, tachycardia is improved. Patient was given very strict return precautions. Patient and family voiced understanding and agreement with the current treatment plan/discharge plan. Heart score of 2- 3 I was consulted by the ANTON, and we discussed the complexity of problems being addressed. I approved the treatment and management plan for this patient's care in the emergency department, thus performing a substantive portion of the medical decision making. Olman Kwong, DO This is Dr. Kwong. I independently evaluated this patient as well. She describes chest pain that onset just prior to arrival this evening. We worked the patient up for pulmonary embolism as well as ACS and NH and workup was negative. Both troponins were less than 0.01. Remainder of her hematologic labs and x-rays were also normal. The patient was very anxious on arrival, however after treating her for pain she was no longer anxious and she stated that her pain completely resolved While under my care I did perform bedside POCUS assessment which showed a normal ejection fraction, no pericardial effusion, no evidence of right heart strain. Please see procedure note for details. Given the patient's pain had resolved and her workup was unremarkable we ultimately elected to discharge her home. Return precautions were given. All questions were answered and all parties were agreeable with this plan Limited cardiac ultrasound note Indication: Chest pain Identified cardiac views: [Cardiac parasternal long axis] [Cardiac parasternal short axis] [Cardiac apical four-chamber] [Cardiac subxiphoid] Findings: Cardiac activity: Present Gross wall motion: Normal Pericardial effusion: Absent Right heart strain: Absent Impression: Normal limited cardiac echo Images were saved to permanent archive This study was technically adequate CPT: 78162 This study was performed by me and I personally interpreted all images/videos. Based on my clinical judgment these images were adequate and did not necessitate further imaging.
--- NOTE | 2025-11-05 16:02 | XR_ITS ---
FINAL REPORT CLINICAL HISTORY: SOA and CP COMPARISON: 07/27/2022 FINDINGS: A portable view of the chest was obtained. Cardiac and mediastinal silhouettes are within normal limits. The lungs are clear. There is no pleural effusion or pneumothorax. IMPRESSION: No acute process on this portable exam. Reviewed, Interpreted and Dictated by Myah Bowser MD Transcribed by Charlotte Sheikh Authenticated and [facility]
[2025-11-05] MEDS: MORPHINE 4MG/ML SYRINGE 4 MG IV (16:20)
[2025-11-05] MEDS: ONDANSETRON 4MG/2ML VIAL 4 MG IV (16:21)
[2025-11-05] MEDS: ASPIRIN 81MG CHEWABLE TABLET 324 MG PO (16:21)
[2025-11-05 16:23] LABS: Hematocrit 36.1 % (37.0-47.0); Hemoglobin 12.5 g/dL (12.2-16.2); Immature Granulocytes % 0.2 %; Mean Corpuscular HGB Conc 34.6 g/dL (31.8-35.4); Mean Corpuscular Hemoglobin 29.6 pg (27.0-31.2); Mean Corpuscular Volume 85.3 fl (81-99); Nucleated Red Blood Cells % 0 %; Platelet Count 297 K/mm3 (142-424); Red Blood Count 4.23 M/mm3 (4.20-5.40); Red Cell Distribution Width-SD 38.6 fL; White Blood Count 10.9 K/mm3 (4.8-10.8)
--- NOTE | 2025-11-05 16:28 | ECG_ITS ---
APPROVED REPORT Exam: Resting ECG HR:84 bpm ECG Measurements Heart Rate 84 AXES MA 151 P 70 QRSd 98 QRS 75 QT 375 T 54 QTc 416 Conclusion Normal sinus rhythm Normal axis Normal intervals No STEMI Electronically signed by : Olman Kwong, 11/05/2025 23:27:55
[2025-11-05 16:33] LABS: Alanine Aminotransferase 18 U/L (12-78); Albumin Level 4.6 g/dl (3.5-5.0); Albumin/Globulin Ratio 1.4 (1.1-1.8); Alkaline Phosphatase 98 U/L (38-126); Anion Gap 10.8 mEq/L (5-15); Aspartate Amino Transferase 24 U/L (14-36); Bilirubin,Total 0.5 mg/dl (0.2-1.3); Blood Urea Nitrogen 17 mg/dl (7-17); Calcium 10.0 mg/dl (8.4-10.2); Carbon Dioxide 28 mmol/L (22.0-30.0); Chloride 98 mmol/L (98-107); Creatinine Clearance Estimated 53 mL/min (50-200); Creatinine,Serum 1.40 mg/dl (0.52-1.04); Estimated Glomerular Filt Rate 40 ml/min (>60); GFR (African American) 48 ML/MIN (>60); Globulin 3.4 g/dL (1.3-3.2); Glucose 120 mg/dl (74-100); Magnesium 1.7 mg/dl (1.6-2.3); Sodium 134 mmol/L (136-145); Total Protein,Serum 8.0 g/dl (6.3-8.2)
[2025-11-05 16:35] LABS: Potassium 2.8 mmoL/L (3.5-5.1)
--- NOTE | 2025-11-05 16:36 | PC.NURSE ---
Akiko CHAND notified of K+ 2.8.
[2025-11-05 16:40] LABS: Lipase 78 U/L (23-300)
[2025-11-05 16:44] LABS: NT Pro Brain Natriuretic Pep. 544 pg/mL (0-125); Prothrombin Time 11.6 seconds (10.1-12.5)
[2025-11-05 16:45] LABS: INR 1.05 (0.9-1.1); Troponin I < 0.01 ng/ml (0.00-0.034)
[2025-11-05 16:55] LABS: D-Dimer 0.58 ug/mL (0.0-0.5)
[2025-11-05] MEDS: POTASSIUM CHLORIDE 20MEQ TAB 80 MEQ PO (17:15)
[2025-11-05 17:46] LABS: Hepatitis C Ab Qual. W/ RFX REACTIVE (Negative)
[2025-11-05 19:25] LABS: Troponin I < 0.01 ng/ml (0.00-0.034)
== END 2025-11-05 19:55 | disposition home or self-care (01) ==
PROVIDERS: Physician Assistant; Emergency Provider Student in an Organized Health Care Education/Training Program; PCP Family Medicine
DX: R07.9 Chest pain, unspecified (principal); E87.6 Hypokalemia; R06.02 Shortness of breath; R00.0 Tachycardia, unspecified; R11.0 Nausea; I10 Essential (primary) hypertension; E78.5 Hyperlipidemia, unspecified; F17.210 Nicotine dependence, cigarettes, uncomplicated
CPT/HCPCS: 71045; 80053; 83690; 83735; 83880; 84484; 85025; 85378; 85610; 86803; 87389; 87522; 93005; 96374; 96375; 99285; J2270; J2405